=== PATIENT | male | born 1960 | race Caucasian/White ===

== ENCOUNTER 2021-06-25 07:49 | Emergency (ER) | payer MEDICARE ==
--- OUTSIDE RECORDS SUMMARY | 2021-06-25 07:53 | XMS REPORT | Continuity of Care Document ---
:1960 Author Organization [facility] t Address [address] [place] [place] [address] Care Team Providers Name Role Phone Pcp, Patient Does Not Have A Primary Care Physician [id number] Chetan Brandt Attending Clinician Unavailable Doctor Unassigned, Name Attending Clinician Unavailable VIVIANA_Seymour Attending Clinician Unavailable JASMYNE BALTAZAR Attending Clinician Unavailable TRUNG Attending Clinician Unavailable HEIKE Attending Clinician Unavailable HILDA Attending Clinician Unavailable JESSICA GROSS Attending Clinician Unavailable CELIA, - Attending Clinician Unavailable VIVIANA_Seymour Admitting Clinician Unavailable JESSICA GROSS Admitting Clinician Unavailable CELIA, - Admitting Clinician Unavailable Payers Payer Name Policy Type Policy Number Effective Date Expiration Date S lida [facility] [id number] 2020 (MEDICARE 00:00:00 REPLACEMENT HMO) 22 C [id number] 14 B [id number] Problems This patient has no known problems. Allergies, Adverse Reactions, Alerts Allergy Allergy Status Severity Reaction(s) Onset Inactive Treating Comm ents Source Name Type Date Date Clinician No Known NA Active Zoroastrianism All[facility]ie 6-24 [facility] l [facility] ([place]) Social History Social Habit Start Date Stop Date Quantity Comments Source Sex Assigned At [birth year] [facility] 00:00:00 00:00:00 Medical Branch Smoking Status Start Date Stop Date Source Unknown if ever smoked [facility] Medications Ordered Filled Start Stop Current Ordering Indication Dosage Frequency Signature Comments Components Source Medication Medication Date Date Medication? Clinician (SIG) Name Name Sawyer Jacques Yes Tom one [facility] 7[facility]29 [facility] Tradjenta Tradjenta Yes Tom [address] [facility] 6-10 Brandt [facility] MetFORMIN MetFORMIN Yes Tom [address] [facility] HCl ER HCl ER 6-02 Brandt meals [facility] Allopurinol Allopurinol Yes Tom [address] [facility]t [facility] Gabapentin Gabapentin Yes Tom [address] [facility] Acetaminoph Acetaminoph Yes Tom [address] [facility] en-Codeine en-Codeine Brandt as needed [facility] #3 #3 [facility] Ibuprofen Ibuprofen Yes Tom [address] [facility] Brandt with food [facility] - or milk as [facility] needed [facility] Lisinopril Lisinopril Yes Tom [address] [facility] Aspir-Low Aspir-Low Yes Tom [address] [facility] Cyclobenzap Cyclobenzap Yes Tom [address] [facility] rine HCl rine HCl Brandt at bedtime [facility] - as needed [facility] Alprazolam Alprazolam Yes Tom [address] [facility] Rosuvastati Rosuvastati Yes Tom [address] [facility] n Calcium n Calcium Brandt [facility] Metoprolol Metoprolol Yes Tom [address] [facility] Succinate Succinate Brandt [facility] - ER ER [facility]ics glyBURIDE-m glyBURIDE-m Yes Tom [address] [facility] [facility] etFORMIN etFORMIN Brandt with a [facility] - meal [facility] Jardiance Jardiance Yes Tom [address] [facility] Procedures Procedure Date / Time Performed Performing Clinician [facility] REFERRAL- 2020-12-27 05:01:00 Doctor Unassigned, No Victor Manueler [facility] REQUEST/RESPONSE Name Medical Branch Encounters Start End Encounter Admission Attending Care Care Encounter Source Date/Time Date/Time Type Type Clinicians Facility Department ID 2021-05-31 Outpatient Brandt, [facility] 2021-05-31 Outpatient Brandt, [facility] 14:27:08 Tom [id number] [facility] 2021-05-31 Outpatient Brandt, [facility] 14:04:56 Tom [id number] [facility] 2021-05-31 Outpatient Brandt, [facility] 13:57:20 Tom [id number] [facility] 2021-05-31 Outpatient Brandt, [facility] 13:45:34 Tom [id number] [facility] 2021-05-31 Outpatient Brandt, [facility] 13:18:17 Tom [id number] [facility] 2021-05-31 Outpatient Brandt, [facility] 12:40:36 Tom [id number] [facility] 2021-05-31 Outpatient Brandt, [facility] 12:37:42 Tom [id number] [facility] 2021-05-31 Outpatient Brandt, [facility] 12:27:44 Tom [id number] [facility] 2021-05-31 Outpatient Brandt, [facility] 12:21:15 Tom [id number] [facility] 2021-05-31 Outpatient Brandt, [place] [id number] [facility] [address] 12:13:38 Tom [id number] [facility] 2021-05-31 Outpatient Brandt, [place] [id number] [facility] [address] 12:13:19 Tom [id number] [facility] 2021-05-31 Outpatient Brandt, [place] [id number] [facility] [address] 12:12:21 Tom [id number] [facility] 2021-05-31 Outpatient Brandt, [place] [id number] 11:57:35 Tom [id number] [facility] 2021-05-31 Outpatient Brandt, [facility] 11:44:18 Tom [id number] [facility] 2021-05-31 Outpatient Brandt, [place] [id number] [facility] 11:43:46 Tom [id number] [facility] 2021-05-31 Outpatient Brandt, [facility] 11:27:07 Tom [id number] [facility] 2021-05-31 Outpatient Brandt, [facility] 11:24:29 Tom [id number] [facility] 2021-05-31 Outpatient Brandt, [place] [id number] [facility] [address] 11:23:22 Tom [id number] [facility] 2021-06-13 2021-06-13 ambulatory [facility] [id number] [facility] 2021-06-07 2021-06-07 ambulatory [facility] [id number] [facility] 2021-06-06 2021-06-06 ambulatory [facility] [id number] [facility] 2021-06-05 2021-06-05 ambulatory [facility] [id number] [facility] 2021-05-30 2021-05-30 ambulatory [facility] [id number] [facility] 2021-05-29 2021-05-29 ambulatory [facility] [id number] [facility] 2021-05-24 2021-05-24 ambulatory [facility] [id number] [facility] 2021-05-08 2021-05-08 ambulatory [facility] [id number] [facility] 2021-04-24 2021-04-24 ambulatory [facility] [id number] [facility] 2021-04-24 2021-04-24 ambulatory [facility] [id number] [facility] 2021-04-03 2021-04-03 ambulatory [facility] [id number] [facility] 2021-03-28 2021-03-28 ambulatory [facility] [id number] [facility] 2021-03-20 2021-03-20 ambulatory [facility] [id number] [facility] 2021-03-17 2021-03-17 ambulatory [facility] [id number] [facility] 2021-02-28 2021-02-28 Outpatient [facility] [id number] [facility] 2021-02-21 2021-02-21 Outpatient [facility] [id number] [facility] 2021-02-21 2021-02-21 Outpatient [facility] [id number] [facility] 2021-02-15 2021-02-15 Outpatient [facility] [id number] [facility] 2021-02-10 2021-02-10 Outpatient [facility] [id number] [facility] 2021-01-26 2021-01-26 Outpatient [facility] [id number] [facility] 2021-01-26 2021-01-26 Outpatient [facility] [id number] [facility] 2021-01-04 2021-01-04 Outpatient [facility] [id number] [facility] 2020-12-27 2020-12-27 Orders Doctor MARÍA ELENA [id number] [facility] 00:00:00 00:00:00 Only Unassigned, NOEMI [id number] ity of [place] [facility] [id number] Fred as [id number] [place] [id number] Branch 2020-12-22 2020-12-22 Outpatient [facility] [id number] [facility] 2020-11-30 2020-11-30 Outpatient [facility] [id number] [facility] 2020-10-17 2020-10-17 Outpatient [facility] [id number] [facility] 2020-10-17 2020-10-17 Outpatient [facility] [id number] [facility] 2020-09-26 2020-09-26 Outpatient [facility] [id number] [facility] 2020-08-30 2020-08-30 Outpatient OWENS_T DM[facility] [id number] [facility] 05:31:00 05:31:00 0427 [facility] 2020-08-19 2020-08-19 Outpatient [facility] [id number] [facility] 2020-08-02 2020-08-02 Outpatient [facility] [id number] [facility] 2020-07-26 2020-07-26 Outpatient [facility] [id number] [facility] 2020-07-22 2020-07-22 Outpatient [facility] [id number] [facility] 2020-07-19 2020-07-19 Outpatient [facility] [id number] [facility] 2020-07-18 2020-07-18 Outpatient [facility] [id number] [facility] 2020-06-20 2020-06-20 Outpatient [facility] [id number] [facility] 2020-06-20 2020-06-20 Outpatient [facility] [id number] [facility] 2020-06-17 2020-06-17 Outpatient [facility] [id number] [facility] 2020-05-18 2020-05-18 Outpatient [facility] [id number] [facility] 2020-05-13 2020-05-13 Outpatient [facility] [id number] [facility] 2020-05-05 2020-05-05 Outpatient [facility] [id number] [facility] 2020-04-18 2020-04-18 Outpatient [facility] [id number] [facility] 2020-04-15 2020-04-15 Outpatient [facility] [id number] [facility] 2020-03-16 2020-03-16 Outpatient [facility] [id number] [facility] 2020-03-11 2020-03-11 Outpatient [facility] [id number] [facility] 2020-03-07 2020-03-07 Outpatient [facility] [id number] [facility] 2020-03-03 2020-03-03 Outpatient [facility] [id number] [facility] 2020-02-22 2020-02-22 Outpatient [facility] [id number] [facility] 2020-01-20 2020-01-20 [facility] [id number] [facility] 15:33:00 15:33:00 t [facility] 2020-01-20 2020-01-20 [facility] [id number] [facility] 15:26:00 15:26:00 t [facility]pat[facility] ent Clinics 2020-01-12 2020-01-12 [facility] [id number] 08:10:00 08:10:00 t [facility] 2019-12-22 2019-12-22 [facility] [id number] [facility] 10:19:00 10:19:00 t [facility] 2019-12-02 2019-12-02 [facility] [id number] [facility] 11:16:00 11:16:00 t [facility]i [facility] ent Clinics 2019-11-03 2019-11-03 [facility] [id number] 08:15:00 08:15:00 t [facility] 2019-10-26 2019-10-26 [facility] [id number] 11:19:00 11:19:00 t [facility] 2019-10-21 2019-10-21 [facility] [id number] 09:15:00 09:15:00 t [facility] ent Clinics 2019-10-20 2019-10-20 [facility] [id number] 15:30:00 15:30:00 t Bone [facility] 2019-10-14 2019-10-14 [facility] [id number] 08:40:00 08:40:[address] [address] [place] - [facility] l Medicine Outpati ent Clinics 2019-10-09 2019-10-09 [facility] [id number] 10:58:00 10:58:[address] Luke s - Drive [facility] Medicine l Medicine Outpati ent Clinics 2019-10-09 2019-10-09 [facility] [id number] 08:21:00 08:21:00 t [facility] [address] [employer] s - Road [facility] Medicine l Medicine Outpati ent Clinics 2019-10-06 2019-10-06 [facility] [id number] 15:50:00 15:50:00 [place] Funding Luke s - Drive [facility] Medicine l Medicine Outpati ent Clinics 2019-10-06 2019-10-06 [facility] [id number] 09:00:00 09:00:00 [place] Funding [employer] s - Drive [facility] Medicine l Medicine Outpati ent Clinics 2019-10-01 2019-10-01 Outpatient MEDLEY [facility] [id number] [place] 00:00:00 00:00:00 [facility]ANEY [facility]-07-30 2019-07-30 Outpatient MEDLEY [facility] [id number] [place] 00:00:00 00:00:00 DELANEY 267 Met james EBONY 2019-07-17 2019-07-17 Outpatient KUNAPULI, [facility] [id number] [place] 00:00:00 00:00:00 LOULOU [address] 2019-07-17 2019-07-17 Outpatient KUNAPULI, [facility] [id number] [place] 00:00:00 00:00:00 LOULOU [address] 2019-07-09 2019-07-09 Outpatient [facility] [id number] [place] 00:00:00 00:00:[address] 2019-07-08 2019-07-08 Outpatient MAJMUDAR, [facility] [id number] [place] 00:00:00 00:00:00 SHIRINE [address] 2019-07-02 2019-07-02 Outpatient TRUNG [facility] [id number] [place] 00:00:00 00:00:00 LOULOU [address] 2019-07-02 2019-07-02 Outpatient TRUNG [facility] [id number] [place] 00:00:00 00:00:00 LOULOU [address] 2019-05-13 2019-05-13 Outpatient SUSANA STEVENS [facility] [id number] [place] 00:00:00 00:00:[address] 2019-03-13 2019-03-13 Outpatient [facility] [id number] [place] 00:00:00 00:00:00 [facility] 2019-03-04 2019-03-04 Outpatient [facility] [id number] [place] 00:00:00 00:00:00 [facility] 2019-01-19 2019-01-19 Outpatient [facility] [id number] [place] 00:00:00 00:00:00 [facility] 2018-12-15 2018-12-15 Outpatient [facility] [id number] [place] 10:58:41 10:58:41 Health 2018-12-15 2018-12-15 Outpatient [facility] [id number] [place] 10:06:51 10:06:51 Health 2018-12-15 2018-12-15 Outpatient [facility] [id number] [place] 08:50:09 08:50:09 Health 2018-12-15 2018-12-15 Outpatient [facility] [id number] [place] 00:00:00 00:00:00 [facility] 2018-11-26 2018-11-26 Outpatient [facility] [id number] [place] 08:13:34 08:13:34 Health 2018-11-26 2018-11-26 Outpatient [facility] [id number] [place] 00:00:00 00:00:00 [facility] 2018-11-17 2018-11-17 Outpatient [facility] [id number] [place] 00:00:00 00:00:00 Health 2018-10-06 2018-10-06 Outpatient [facility] [id number] [place] 00:00:00 00:00:00 [facility] 2018-09-26 2018-09-26 Outpatient [facility] [id number] [place] 10:06:34 10:06:34 Health 2018-09-26 2018-09-26 Outpatient [facility] [id number] [place] 08:40:35 08:40:35 [facility] 2018-09-26 2018-09-26 Outpatient [facility] [id number] [place] 08:24:50 08:24:50 [facility] 2018-08-25 2018-08-25 Outpatient [facility] [id number] [place] 13:38:58 13:38:58 [facility] 2018-08-04 2018-08-04 Outpatient [facility] [id number] [place] 00:00:00 00:00:00 [facility] 2018-07-30 2018-07-30 Outpatient [facility] [id number] [place] 00:00:00 00:00:00 [facility] 2018-07-22 2018-07-22 Outpatient [facility] [id number] [place] 00:00:00 00:00:00 [facility] 2018-07-10 2018-07-10 Outpatient [facility] [id number] [place] 00:00:00 00:00:00 [facility] 2018-07-09 2018-07-09 Outpatient [facility] [id number] [place] 00:00:00 00:00:00 [facility] 2018-07-03 2018-07-03 Outpatient [facility] [id number] [place] 00:00:00 00:00:00 [facility] 2018-06-26 2018-06-26 Outpatient [facility] [id number] [place] 12:26:00 12:26:00 [facility] 2018-06-18 2018-06-18 Outpatient [facility] [id number] [place] 16:41:14 16:41:14 [facility] 2018-06-12 2018-06-12 Outpatient [facility] [id number] [place] 18:03:36 18:03:36 [facility] 2018-06-12 2018-06-12 Outpatient [facility] [id number] [place] 17:07:35 17:07:35 [facility] 2018-06-12 2018-06-12 Outpatient [facility] [id number] [place] 00:00:00 00:00:00 [facility] 2018-06-12 2018-06-12 Outpatient [facility] [id number] [place] 00:00:00 00:00:00 [facility] 2018-06-11 2018-06-11 Emergency [facility] [id number] [place] 11:44:23 11:44:23 Health 2018-06-11 2018-06-[address] [facility] [id number] [place] 10:15:12 10:15:12 [facility] 2018-05-15 2018-05-15 Outpatient [facility] [id number] [place] 00:00:00 00:00:00 [facility] 2018-04-22 2018-04-22 Outpatient [facility] [id number] [place] 09:19:06 09:19:06 [facility] 2018-04-04 2018-04-04 Outpatient [facility] [id number] [place] 09:02:57 09:02:57 [facility] 2018-04-03 2018-04-03 Outpatient [facility] [id number] [place] 00:00:00 00:00:00 [facility] 2018-03-25 2018-03-25 Outpatient [facility] [id number] [place] 00:00:00 00:00:00 [facility] 2018-03-25 2018-03-25 Outpatient [facility] [id number] [place] 00:00:00 00:00:00 [facility] 2018-03-24 2018-03-24 Outpatient [facility] [id number] [place] 13:56:57 13:56:57 [facility] 2018-03-21 2018-03-21 Outpatient [facility] [id number] [place] 00:00:00 00:00:00 [facility] 2018-03-21 2018-03-21 Outpatient [facility] [id number] [place] 00:00:00 00:00:00 [facility] 2018-03-21 2018-03-21 Outpatient [facility] [id number] [place] 00:00:00 00:00:00 [facility] 2018-03-04 2018-03-04 Outpatient [facility] [id number] [place] 00:00:00 00:00:00 [facility] 2018-02-27 2018-02-27 Outpatient [facility] [id number] [place] 00:00:00 00:00:00 [facility] 2018-02-25 2018-02-25 Outpatient [facility] [id number] [place] 12:53:40 12:53:40 [facility] 2018-02-25 2018-02-25 Outpatient [facility] [id number] [place] 11:03:51 11:03:51 [facility] 2018-02-25 2018-02-25 Outpatient [facility] [id number] [place] 00:00:00 00:00:00 [facility] 2018-02-21 2018-02-21 Outpatient [facility] [id number] [place] 15:02:30 15:02:30 [facility] 2018-02-11 2018-02-11 Outpatient [facility] [id number] [place] 00:00:00 00:00:00 [facility] 2018-02-10 2018-02-10 Outpatient [facility] [id number] [place] 00:00:00 00:00:00 [facility] 2018-02-10 2018-02-10 Outpatient [facility] [id number] [place] 00:00:00 00:00:00 [facility] 2018-02-07 2018-02-07 Outpatient [facility] [id number] [place] 00:00:00 00:00:00 [facility] 2018-02-05 2018-02-05 Outpatient [facility] [id number] [place] 00:00:00 00:00:00 [facility] 2018-01-29 2018-01-29 Outpatient [facility] [id number] [place] 00:00:00 00:00:00 [facility] 2018-01-27 2018-01-27 Outpatient [facility] [id number] [place] 00:00:00 00:00:00 [facility] 2018-01-17 2018-01-17 Emergency [facility] [id number] [place] 10:08:32 10:08:32 [facility] 2018-01-17 2018-01-17 Emergency [facility] [id number] [place] 08:24:15 08:24:15 [facility] 2018-01-17 2018-01-17 Outpatient [facility] [id number] [place] 07:31:43 07:31:43 [facility] 2018-01-15 2018-01-15 Outpatient [facility] [id number] [place] 09:38:41 09:38:41 [facility] 2018-01-09 2018-01-09 Outpatient [facility] [id number] [place] 00:00:00 00:00:00 [facility] 2017-12-31 2017-12-31 Outpatient [facility] [id number] [place] 12:47:00 12:47:00 [facility] 2017-12-31 2017-12-31 Outpatient [facility] [id number] [place] 12:06:00 12:06:00 [facility] 2017-12-27 2017-12-27 Outpatient [facility] [id number] [place] 00:00:00 00:00:00 [facility] 2017 2017 Outpatient [facility] [id number] [place] 10:16:43 10:16:43 [facility] 2017-12-24 2017-12-24 Outpatient [facility] [id number] [place] 10:34:00 10:34:00 [facility] 2017-12-24 2017-12-24 Outpatient [facility] [id number] [place] 09:05:34 09:05:34 [facility] 2017-12-24 2017-12-24 Outpatient [facility] [id number] [place] 00:00:00 00:00:00 [facility] 2017-12-19 2017-12-19 Outpatient [facility] [id number] [place] 00:00:00 00:00:00 [facility] 2017-12-12 2017-12-12 Outpatient [facility] [id number] [place] 07:54:00 07:54:00 [facility] 2017-11-27 2017-11-27 Outpatient [facility] [id number] [place] 11:36:11 11:36:11 [facility] 2017-11-19 2017-11-19 Outpatient [facility] [id number] [place] 13:39:43 13:39:43 [facility] 2017-11-18 2017-11-18 Outpatient [facility] [id number] [place] 14:25:53 14:25:53 [facility] 2017-11-12 2017-11-12 Outpatient [facility] [id number] [place] 10:49:20 10:49:20 [facility] 2017-11-12 2017-11-12 Outpatient [facility] [id number] [place] 00:00:00 00:00:00 [facility] 2017-11-12 2017-11-12 Outpatient [facility] [id number] [place] 00:00:00 00:00:00 [facility] 2017-11-05 2017-11-05 Outpatient [facility] [id number] [place] 10:16:07 10:16:07 [facility] 2017-11-05 2017-11-05 Outpatient [facility] [id number] [place] 09:00:21 09:00:21 [facility] 2017-10-29 2017-10-29 Outpatient [facility] [id number] [place] 13:45:43 13:45:43 [facility] 2017-10-18 2017-10-18 Outpatient [facility] [id number] [place] 00:00:00 00:00:00 [facility] 2017-10-14 2017-10-14 Outpatient [facility] [id number] [place] 00:00:00 00:00:00 [facility] 2017-10-07 2017-10-07 Outpatient [facility] [id number] [place] 00:00:00 00:00:00 [facility] 2017-10-03 2017-10-03 Outpatient [facility] [id number] [place] 10:04:26 10:04:26 [facility] 2017-10-03 2017-10-03 Outpatient [facility] [id number] [place] 09:28:32 09:28:32 [facility] 2017-10-01 2017-10-01 Outpatient [facility] [id number] [place] 11:05:29 11:05:29 [facility] 2017-10-01 2017-10-01 Outpatient [facility] [id number] [place] 10:18:38 10:18:38 [facility] 2017-09-24 2017-09-24 Outpatient [facility] [id number] [place] 00:00:00 00:00:00 [facility] 2017-09-23 2017-09-23 Outpatient [facility] [id number] [place] 10:21:51 10:21:51 [facility] 2017-09-23 2017-09-23 Outpatient [facility] [id number] [place] 08:59:09 08:59:09 [facility] 2017-09-17 2017-09-17 Outpatient [facility] [id number] [place] 13:57:42 13:57:42 [facility] 2017-09-09 2017-09-09 Outpatient [facility] [id number] [place] 08:37:34 08:37:34 [facility] 2017-09-02 2017-09-02 Outpatient [facility] [id number] [place] 09:36:38 09:36:38 [facility] 2017-08-28 2017-08-28 Outpatient [facility] [id number] [place] 13:30:26 13:30:26 [facility] 2017-08-08 2017-08-08 Emergency [facility] [id number] [place] 22:23:03 22:23:03 [facility] 2017-08-08 2017-08-08 Outpatient [facility] [id number] [place] 00:00:00 00:00:00 [facility] 2017-08-08 2017-08-08 Outpatient [facility] [id number] [place] 00:00:00 00:00:00 [facility] 2017-08-06 2017-08-06 Outpatient [facility] [id number] [place] 00:00:00 00:00:00 [facility] 2017-08-05 2017-08-05 Outpatient [facility] [id number] [place] 13:08:03 13:08:03 [facility] 2017-08-05 2017-08-05 Outpatient [facility] [id number] [place] 11:01:45 11:01:45 [facility] 2017-08-05 2017-08-05 Outpatient [facility] [id number] [place] 08:41:42 08:41:42 [facility] 2017-08-05 2017-08-05 Outpatient [facility] [id number] [place] 00:00:00 00:00:00 [facility] 2017-08-05 2017-08-05 Outpatient [facility] [id number] [place] 00:00:00 00:00:00 [facility] 2017-08-01 2017-08-01 Outpatient [facility] [id number] [place] 08:44:07 08:44:07 [facility] 2017-08-01 2017-08-01 Outpatient [facility] [id number] [place] 00:00:00 00:00:00 [facility] 2017-08-01 2017-08-01 Outpatient [facility] [id number] [place] 00:00:00 00:00:00 [facility] 2017-07-23 2017-07-23 Outpatient [facility] [id number] [place] 16:18:24 16:18:24 [facility] 2017-07-16 2017-07-16 Outpatient [facility] [id number] [place] 00:00:00 00:00:00 [facility] 2017-07-11 2017-07-11 Outpatient [facility] [id number] [place] 11:38:48 11:38:48 [facility] 2017-07-10 2017-07-10 Outpatient [facility] [id number] [place] 10:18:32 10:18:32 [facility] 2017-07-10 2017-07-10 Outpatient [facility] [id number] [place] 08:18:20 08:18:20 [facility] 2017-07-09 2017-07-09 Outpatient [facility] [id number] [place] 00:00:00 00:00:00 [facility] 2017-06-24 2017-06-24 Outpatient [facility] [id number] [place] 00:00:00 00:00:00 [facility] 2017-06-14 2017-06-14 Outpatient [facility] [id number] [place] 08:03:34 08:03:34 [facility] 2017-06-12 2017-06-12 Outpatient [facility] [id number] [place] 20:12:14 20:12:14 [facility] 2017-06-10 2017-06-10 Outpatient [facility] [id number] [place] 09:37:52 09:37:52 [facility] 2017-06-10 2017-06-10 Outpatient [facility] [id number] [place] 08:42:02 08:42:02 [facility] 2017-06-05 2017-06-05 Outpatient [facility] [id number] [place] 10:46:32 10:46:32 [facility] 2017-05-31 2017-05-31 Outpatient [facility] [id number] [place] 14:46:12 14:46:12 [facility] 2017-05-27 2017-05-27 Outpatient [facility] [id number] [place] 00:00:00 00:00:00 [facility] 2017-05-23 2017-05-23 Outpatient [facility] [id number] [place] 11:59:38 11:59:38 [facility] 2017-05-23 2017-05-23 Outpatient [facility] [id number] [place] 00:00:00 00:00:00 [facility] 2017-05-16 2017-05-16 Outpatient [facility] [id number] [place] 16:21:53 16:21:53 [facility] 2017-05-16 2017-05-16 Outpatient [facility] [id number] [place] 00:00:00 00:00:00 [facility] 2017-05-14 2017-05-14 Outpatient [facility] [id number] [place] 00:00:00 00:00:00 [facility] 2017-05-13 2017-05-13 Outpatient [facility] [id number] [place] 12:20:11 12:20:11 [facility] 2017-05-13 2017-05-13 Outpatient [facility] [id number] [place] 00:00:00 00:00:00 [facility] 2017-05-08 2017-05-08 Outpatient [facility] [id number] [place] 00:00:00 00:00:00 [facility] 2017-04-30 2017-04-30 Outpatient [facility] [id number] [place] 07:15:53 07:15:53 [facility] 2017-04-30 2017-04-30 Outpatient [facility] [id number] [place] 06:54:15 06:54:15 [facility] 2017-04-22 2017-04-22 Outpatient [facility] [id number] [place] 08:27:43 08:27:43 [facility] 2017-04-15 2017-04-15 Outpatient [facility] [id number] [place] 11:04:39 11:04:39 [facility] 2017-04-03 2017-04-03 Outpatient [facility] [id number] [place] 08:24:48 08:24:48 [facility] 2017-04-02 2017-04-02 Outpatient [facility] [id number] [place] 16:13:48 16:13:48 [facility] 2017-04-02 2017-04-02 Outpatient [facility] [id number] [place] 10:12:00 10:12:00 [facility] 2017-03-27 2017-03-27 Outpatient [facility] [id number] [place] 08:53:50 08:53:50 [facility] 2017-03-27 2017-03-27 Outpatient [facility] [id number] [place] 00:00:00 00:00:00 [facility] 2017-03-25 2017-03-25 Outpatient [facility] [id number] [place] 13:51:49 13:51:49 [facility] 2017-03-15 2017-03-15 Outpatient [facility] [id number] [place] 14:16:41 14:16:41 Health 2017-03-13 2017-03-13 Outpatient [facility] [id number] [place] 13:15:34 13:15:34 Health 2017-03-13 2017-03-13 Outpatient [facility] [id number] [place] 12:54:27 12:54:27 Health 2017-03-13 2017-03-13 Outpatient [facility] [id number] [place] 10:32:53 10:32:53 Health 2017-03-07 2017-03-07 Outpatient [facility] [id number] [place] 11:53:25 11:53:25 [facility] 2016-11-05 2016-11-06 Emergency 1 GROSS, LOC SSET ERS [id number] [facility] 20:54:00 01:23:00 [id number] [facility] 2012-10-27 2012-10-29 Outpatient 1 KIMANI BRANDT O[facility] [id number]- [facility] 18:07:00 13:18:00 [facility] [id number] Hospi ta l ([place]) Results Test Description Test Time Test Comments Results Result [facility] e Comments CT Abdomen and Patient: PAULSON, Pelvis w/o 5 [place] Contrast 19:37:37 Date/Time06/10/2018 18:00 CSTReason for ExamFlank painAddendumADDENDUM:TECHN IQUE: Multiple axial images were obtained through the abdomen and pelvis. No oral nor IV contrast material was administered. The images were reformatted in the coronal and sagittal planes. Radiation dose lowering techniques were used with automated exposure control, adjusting the mA according to patient's size. Final Dictated by: MD Munir, SamerDictated DT/TM: 06/10/2018 7:37 pmSigned by: MD Munir, SamerSigned (Electronic Signature): 06/10/2018 7:37 pmReportEXAMINATION: CT ABDOMEN AND PELVIS WITHOUT CONTRASTCOMPARISON: NoneCLINICAL INFORMATION: Right flank painTECHNIQUE: After oral contrast administration, multiple axial images were obtained through the abdomen and pelvis. IV contrast material was not administered. The images were reformatted in the coronal and sagittal planes. Radiation dose lowering techniques were used with automated exposure control, adjusting the mA according to patient's size.FINDINGS:Exam sensitivity is limited due to lack of IV and oral contrast.Mild bibasilar linear atelectasis versus scarring. Visualized lung bases are otherwise unremarkable.Liver is normal size and contour. Diffuse hypoattenuation of the hepatic parenchyma. No focal hepatic lesions. No intra or extra hepatic biliary ductal dilatation.Gallbladder is grossly unremarkable, without radiodense calculi.Spleen is grossly normal.A 1 cm well-circumscribed hypodensity within the pancreatic head/neck (axial image 63, series 201), with internal density measuring up to 3 Hounsfield units, most compatible with simple pancreatic cyst. No ductal dilatation.A benign 1.4 cm left adrenal myelolipoma. Adrenal glands are otherwise unremarkable.Moderate right hydroureteronephrosis with likely obstructive 0.8 cm distal right ureteral calculus (axial image 135, series 201; coronal image 81, series 202). With mild perinephric fat stranding and moderate periureteral fat stranding/inflammatory changes. Left parapelvic cysts. Nonobstructive subcentimeter left renal calculi. No left ureteral calculi. A 1.7 cm well-circumscribed calcified exophytic right renal lesion (axial image 96, series 201).Urinary bladder is partially decompressed, but otherwise unremarkable. Central calcifications of the prostate.Exam Date/Time06/10/2018 18:00 CSTReportNo bowel wall thickening, distention, nor evidence of obstruction. Appendix is not visualized, however, no inflammatory changes within the right lower quadrant.No intraperineal free air and/or free fluid.No lymphadenopathy.Mild calcific atherosclerosis of the aortoiliac vasculature. Otherwise remainder of the aorta, IVC, and main portal vein are grossly normal, however, complete evaluation of the intraluminal vascular contents cannot be performed on this noncontrast examination.No lytic or blastic osseous lesions. Moderate multilevel degenerative disc disease of the lumbar spine, with prominent posterior disc osteophyte complex at L3-L4, which results in moderate/severe spinal canal stenosis at this level. 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 Tiny right fat-containing inguinal hernia, without associated inflammatory changes. Soft tissues are otherwise grossly unremarkable.IMPRESSION:1. Moderate right hydroureteronephrosis with likely obstructive 0.8 cm distal right ureteral calculus.2. Subcentimeter nonobstructive left nephrolithiasis.3. Hepatic steatosis.4. Moderate multilevel degenerative disc disease of the lumbar spine, with large posterior disc osteophyte complex at L3-L4, which results in moderate/severe spinal canal stenosis at this level.5. A 1.7 cm calcified exophytic right renal lesion, indeterminate. Recommend MRI abdomen with and without contrast-renal protocol for further evaluation, on a nonemergent basis.6. A 1 cm likely simple pancreatic cyst. Recommend follow-up CT versus MRI abdomen in one year to document stability. Final Dictated by: MD Munir, SamerDictated DT/TM: 06/10/2018 6:32 pmSigned by: MD Munir, SamerSigned (Electronic Signature): 06/10/2018 6:48 pmReport last revised on 06/10/2018 19:37 HELMET BINDER by MD Munir, Samer CT Abdomen and Patient: PAULSON, Pelvis w/o 5 GEORGES Contrast 18:48:17 Date/Time06/10/2018 18:00 CSTReason for ExamFlank painReportEXAMINATION: CT ABDOMEN AND PELVIS WITHOUT CONTRASTCOMPARISON: NoneCLINICAL INFORMATION: Right flank painTECHNIQUE: After oral contrast administration, multiple axial images were obtained through the abdomen and pelvis. IV contrast material was not administered. The images were reformatted in the coronal and sagittal planes. Radiation dose lowering techniques were used with automated exposure control, adjusting the mA according to patient's size.FINDINGS:Exam sensitivity is limited due to lack of IV and oral contrast.Mild bibasilar linear atelectasis versus scarring. Visualized lung bases are otherwise unremarkable.Liver is normal size and contour. Diffuse hypoattenuation of the hepatic parenchyma. No focal hepatic lesions. No intra or extra hepatic biliary ductal dilatation.Gallbladder is grossly unremarkable, without radiodense calculi.Spleen is grossly normal.A 1 cm well-circumscribed hypodensity within the pancreatic head/neck (axial image 63, series 201), with internal density measuring up to 3 Hounsfield units, most compatible with simple pancreatic cyst. No ductal dilatation.A benign 1.4 cm left adrenal myelolipoma. Adrenal glands are otherwise unremarkable.Moderate right hydroureteronephrosis with likely obstructive 0.8 cm distal right ureteral calculus (axial image 135, series 201; coronal image 81, series 202). With mild perinephric fat stranding and moderate periureteral fat stranding/inflammatory changes. Left parapelvic cysts. Nonobstructive subcentimeter left renal calculi. No left ureteral calculi. A 1.7 cm well-circumscribed calcified exophytic right renal lesion (axial image 96, series 201).Urinary bladder is partially decompressed, but otherwise unremarkable. Central calcifications of the prostate.No bowel wall thickening, distention, nor evidence of obstruction. Appendix is not visualized, however, no inflammatory changes within the right lower quadrant.No intraperineal free air and/or free fluid.No lymphadenopathy.Mild calcific atherosclerosis of the aortoiliac vasculature. Otherwise remainder of the aorta, IVC, and main portal vein are grossly normal, however, complete evaluation of the intraluminal vascular contents cannot be performed on this noncontrast examination.No lytic or blastic osseous lesions. Moderate multilevel degenerative disc disease of the lumbar spine, with prominent posterior disc osteophyte complex at L3-L4, which results in moderate/severe spinal canal stenosis at this level. 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 Tiny right fat-containing inguinal hernia, without associated inflammatory changes. Soft tissues are otherwise grossly unremarkable.IMPRESSION:1. Moderate right hydroureteronephrosis with likely obstructive 0.8 cm distal right ureteral calculus.2. Subcentimeter nonobstructive left nephrolithiasis.3. Hepatic steatosis.4. Moderate multilevel degenerative disc disease of the lumbar spine, with large posterior disc osteophyte complex at L3-L4, which results in moderate/severe spinal canal stenosis at this level.5. A 1.7 cm calcified exophytic right renal lesion, indeterminate. Recommend MRI abdomen with and without contrast-renal protocol for further evaluation, on a nonemergent basis.6. A 1 cm likely simple pancreatic cyst. Recommend follow-up CT versus MRI abdomen in one year to document stability. Final Dictated by: MD Munir, SamerDictated DT/TM: 06/10/2018 6:32 pmSigned by: MD Munir, SamerSigned (Electronic Signature): 06/10/2018 6:48 pm US LIMITED ABD [place] [id number] 21:52:00 [place], [place] [id number] IMAGING REPORTPatient Name: GEORGES PAULSON LDate of Service: [id number]: 55 Sex: M Order #: [id number] Room: [facility]: 1960 X-Ray Number: [id number] Record Number: [id number] Hospital Number: [id number] Physician: TEJA GROSS TANOrdering Physician: Adrianne CEDILLO right upper quadrant abdominal ultrasound 11/05/2016 at 2151 hoursHistory: Right upper quadrant abdominal pain, reported biopsy-proven benignright renal massComparison: X-rays of 01/19/2015The liver shows increased echotexture consistent with fatty infiltration.The right hepatic lobe appears to measure at least 18 cm in length. Nofocal hepatic mass or biliary dilatation is identified.Common bile duct measures 5 mm in diameter. Duplex imaging of main portalvein flow is within normal limits.The gallbladder is within normal limits. Visualized portions of the IVC areunremarkable. The aorta and pancreas are obscured by bowel gas.The right kidney measures 14 cm in length and contains an hyperechoiclesion inferiorly measuring 2.7 x 1.6 x 1.8 cm. This may be due to a benignangiomyolipoma given the patient's history of reported benign renal lesion.IMPRESSION:No definite acute process.Possible mild hepatomegaly and fatty liver.Electronically Signed By: Teo Pruitt M.D., 11/05/2016 9:50 PMLegally authenticated by DEB THOMPSON 2016-11-05 21:50:03 [facility] [place] [address] 21:49:00 [place], [place] [id number] IMAGING REPORTPatient Name: GEORGES PAULSON LDate of Service: [id number]: 56 Sex: M Order #: [id number] Room: QERDOB: 1960 X-Ray Number: [id number] Record Number: [id number] Hospital Number: [id number] Physician: TEJA GROSS TANOrdering Physician: Jose CEDILLO shoulder 3 views 11/05/2016 at 2138 hoursHISTORY: Right shoulder pain x6 monthsCOMPARISON: NoneNo fracture, dislocation, or AC joint separation is identified. There aremild degenerative changes of the AC joint. The soft tissues areunremarkable.Impression :No acute process. AC joint degenerative changes.Electronically Signed By: Teo Pruitt M.D., 11/05/2016 9:46 PMLegally authenticated by DEB THOMPSON 2016-11-05 21:46:54
[2021-06-25] MEDS ORDERED: FENTANYL CITR 100 MCG/2 ML ONE ×2 (07:57→08:21)
[2021-06-25] MEDS ORDERED: ONDANSETRON 4 MG/2 ML VIAL ONE ×2 (07:57→09:05)
[2021-06-25] MEDS ORDERED: NA CHLORIDE 0.9% 1,000 ML ONE (07:58)
[2021-06-25 08:05] LABS: Absolute Lymphocytes (CBC) 1.6 K/uL (0.7-4.9); Hematocrit 46.8 % (39.6-49.0); MPV 8.8 fL (7.6-11.3); RBC Red Blood Cell Count 4.96 M/uL (4.33-5.43)
[2021-06-25 08:22] LABS: ALT/SGPT 34 U/L (12-78); Albumin 3.6 g/dL (3.4-5.0); Alkaline Phosphatase 100 U/L (45-117); BUN Blood Urea Nitrogen 22 mg/dL (7-18); Bicarbonate 23 mmol/L (21-32); Bilirubin Direct < 0.1 mg/dL (0-0.2); Bilirubin Total 0.3 mg/dL (0.2-1.0); Glucose Level 220 mg/dL (74-106); Lipase 70 U/L (73-393); Protein, Total 7.6 g/dL (6.4-8.2); Sodium Level 140 mmol/L (136-145)
[2021-06-25 08:23] LABS: AST/SGOT 20 U/L (15-37); Potassium 4.4 mmol/L (3.5-5.1)
[2021-06-25 08:32] LABS: Urine Blood 3+ (Negative); Urine Glucose 2+ (Negative); Urine Protein Negative (Negative)
[2021-06-25] MEDS ORDERED: HYDROMORPHONE HCL 1 MG/ML INJ ONE ×2 (09:05→10:42)
[2021-06-25 09:22] LABS: Urine Bacteria <20 /HPF (NONE SEEN); Urine RBC 20-50 /HPF (NONE SEEN)
--- NOTE | 2021-06-25 09:27 | RAD REPORT ---
EXAM DESCRIPTION: CT - Stone Protocol - 06/25/2021 8:31 am CLINICAL HISTORY: Abdominal pain. Right flank pain COMPARISON: None. TECHNIQUE: Computed axial tomography of the abdomen pelvis was obtained without oral or IV contrast. Lack of IV and oral contrast limits evaluation of solid organs, bowel, and vessels. Coronal reformat martell images were obtained and reviewed. All CT scans are performed using dose optimization technique as appropriate and may include automated exposure control or mA/KV adjustment according to patient size. FINDINGS: Bilateral renal calculi. Moderate right hydronephrosis. 1.3 centimeter calcified right faith al mass. This is contained within a 4.3 centimeter fatty structure. . 4 millimeter calculus distal ri ght ureter. 5.7 centimeter cystic mass left kidney The liver, spleen, pancreas appear grossly normal Benign calcifications within the adrenal glands. 13 millimeter left adrenal myelolipoma. There is no evidence of diverticulitis. A moderate bilateral inguinal hernias contain fat. Mild stran ding within the mesentery Moderate calcified disc herniation L3-4 results in marked compression of spinal canal IMPRESSION: 4 millimeter calculus distal right ureter resulting in moderate right hydronephrosis 1.3 centimeter calcified mass within a 4.3 centimeter fatty structure. The history states renal ablat ion. Presumably this is the sequela of a treated mass and should be correlated clinically. 5.7 centimeter cystic mass left kidney probably a cyst. Followup ultrasound in 3 months recommended Moderate calcified disc herniation L3-4
[2021-06-25] MEDS ORDERED: TAMSULOSIN 0.4 MG SR CAP ONE (10:04)
[2021-06-25] MEDS ORDERED: MAGNESIUM SULFATE 1 gm IVPB 1 GM/100 ML BAG IV ONE (10:05)
[2021-06-25] MEDS ORDERED: PROMETHAZINE INJ 25 MG/ML AMP ONE (10:41)
--- NOTE | 2021-06-25 11:50 | EDPHYS ---
Physician Documentation [facility] Name: Georges Mendoza Age: 60 yrs Sex: Male : 1960 Arrival Date: 06/25/2021 Time: 07:28 Bed 20 Private MD: Mattie Brandth ED Physician Hal Nails HPI: 06/25 07:35 This 60 yrs old Male presents to ER via Ambulatory with complaints of pm1 Abdominal Pain, Vomiting. 07:35 The patient complains of pain in the right low back. The pain does not radiate. Onset: pm1 The symptoms/episode began/occurred today, at 03:00. Modifying factors: The symptoms are alleviated by nothing. the symptoms are aggravated by nothing. Associated signs and symptoms: Pertinent positives: nausea, vomiting, Pertinent negatives: dysuria, fever. Severity of pain: in the emergency department the pain is actually worse. The patient has experienced similar episodes in the past, a few times, today's symptoms are similar, to previous kidney stones. The patient has not recently seen a physician. Historical: - Allergies: 07:44 No Known Allergies; ke1 - PMHx: 07:44 Kidney stone; Hypertensive disorder; Diabetes mellitus; ke1 - PSHx: 07:44 kidney ablation; back surgery; Appendectomy; ke1 - Immunization history:: Adult Immunizations . - Social history:: Smoking status: Patient denies any tobacco usage or history of. ROS: 07:35 Constitutional: Negative for fever, chills, and weight loss, Cardiovascular: Negative pm1 for chest pain, palpitations, and edema, Respiratory: Negative for shortness of breath, cough, wheezing, and pleuritic chest pain. 07:35 : Negative for injury, bleeding, discharge, and swelling, MS/Extremity: Negative for injury and deformity, Skin: Negative for injury, rash, and discoloration, Neuro: Negative for headache, weakness, numbness, tingling, and seizure. 07:35 Abdomen/GI: Positive for nausea and vomiting, Negative for abdominal pain, diarrhea, constipation. 07:35 Back: Positive for flank pain, on the right. 07:35 All other systems are negative. Exam: 07:35 Constitutional: This is a well developed, well nourished patient who is awake, alert, pm1 and in no acute distress. Head/Face: Normocephalic, atraumatic. 07:35 Skin: Warm, dry with normal turgor. Normal color with no rashes, no lesions, and no evidence of cellulitis. MS/ Extremity: Pulses equal, no cyanosis. Neurovascular intact. Full, normal range of motion. 07:35 Cardiovascular: Exam negative for acute changes, Rate: normal, Rhythm: regular, Pulses: no pulse deficits are appreciated. 07:35 Respiratory: Exam negative for acute changes, respiratory distress, shortness of breath, Breath sounds: are clear throughout. 07:35 Abdomen/GI: Inspection: obese Palpation: abdomen is soft and non-tender, in all quadrants. 07:35 Back: CVA tenderness, that is moderate, is noted on the right. 07:35 Neuro: Exam negative for acute changes, Orientation: is normal, Mentation: is normal, Motor: is normal, moves all fours. Vital Signs: 07:39 BP 155 / 106; Pulse 112; Resp 19; Temp 97.6; Pulse Ox 99% ; ke1 08:00 BP 176 / 106; Pulse 72; Resp 19; Pulse Ox 95% ; ke1 09:00 BP 174 / 97; Pulse 82; Resp 18; Pulse Ox 94% on R/A; ke1 10:00 BP 150 / 70; Pulse 80; Resp 17; Pulse Ox 95% on R/A; ke1 11:00 BP 162 / 110; Pulse 82; Resp 18; Pulse Ox 92% on R/A; ke1 11:47 BP 149 / 79; Pulse 80; Resp 18; Pulse Ox 95% on R/A; ke1 MDM: 07:37 Patient medically screened. pm1 09:30 Data reviewed: vital signs. Data interpreted: Pulse oximetry: on room air is 99 %. pm1 Interpretation: normal. 11:47 Counseling: I had a detailed discussion with the patient and/or guardian regarding: the pm1 historical points, exam findings, and any diagnostic results supporting the discharge/admit diagnosis, lab results, radiology results, the need for outpatient follow up, to return to the emergency department if symptoms worsen or persist or if there are any questions or concerns that arise at home. 06/25 07:35 Order name: Basic Metabolic Panel pm1 06/25 07:35 Order name: CBC with Diff pm1 06/25 07:35 Order name: Hepatic Function pm1 02/20 07:35 Order name: Lipase pm06/25 08:07 Order name: CBC with Automated Diff; Complete Time: 08:10 EDMS 06/25 08:23 Order name: Basic Metabolic Panel; Complete Time: 08:33 EDMS 06/25 07:36 Order name: CT Abd/Pelvis - IV Contrast Only pm06/25 07:39 Order name: CT Stone Protocol pm06/25 08:23 Order name: Liver (Hepatic) Function; Complete Time: 08:33 EDMS 06/25 08:23 Order name: Lipase; Complete Time: 08:33 EDMS 06/25 08:32 Order name: Urine Dipstick-Ancillary; Complete Time: 08:33 EDMS 06/25 08:59 Order name: Urine Microscopic Only pm06/25 09:22 Order name: Urine Microscopic Only; Complete Time: 09:23 EDMS 06/25 09:28 Order name: CT; Complete Time: 09:29 EDMS 06/25 07:35 Order name: IV Saline Lock; Complete Time: 07:56 pm06/25 07:35 Order name: Labs collected and sent; Complete Time: 07:56 pm06/25 07:35 Order name: Urine Dipstick-Ancillary (obtain specimen); Complete Time: 08:33 pm1 Administered Medications: 08:00 Drug: fentaNYL (PF) 50 mcg Route: IVP; Site: left forearm; ke1 08:15 Follow up: Response: Pain is unchanged, physician notified ke1 08:00 Drug: Zofran (Ondansetron) 4 mg Route: IVP; Site: left forearm; ke1 08:25 Follow up: Response: Nausea is decreased ke1 08:30 Follow up: Response: Nausea is decreased ke1 08:00 Drug: NS 0.9% 1000 ml Route: IV; Rate: 1000 ml; Site: left forearm; ke1 09:30 Follow up: IV Status: Completed infusion ke1 08:25 Drug: fentaNYL (PF) 50 mcg Route: IVP; Site: left forearm; ke1 09:00 Follow up: Response: Pain is unchanged, physician notified ke1 09:09 Drug: Dilaudid (HYDROmorphone) 1 mg Route: IVP; Site: left forearm; ke1 09:25 Follow up: Response: Pain is decreased ke1 09:09 Drug: Zofran (Ondansetron) 4 mg Route: IVP; Site: left forearm; ke1 09:30 Follow up: Response: Nausea is decreased ke1 10:13 Drug: Magnesium Sulfate 1 grams Route: IVPB; Infused Over: 1 hrs; Site: left forearm; ke1 11:13 Follow up: IV Status: Completed infusion ke1 10:13 Drug: Flomax (tamsulosin) 0.4 mg Route: PO; ke1 11:00 Follow up: Response: No adverse reaction ke1 10:46 Drug: Dilaudid (HYDROmorphone) 1 mg Route: IVP; Site: left forearm; ke1 11:15 Follow up: Response: Pain is decreased ke1 10:46 Drug: Phenergan (promethazine) 12.5 mg Route: IVP; Site: left forearm; ke1 11:00 Follow up: Response: Nausea is decreased ke1 Disposition Summary: 06/25/21 11:50 Discharge Ordered Location: Home pm1 Problem: new pm1 Symptoms: have improved pm1 Condition: Stable pm1 Diagnosis - Calculus of ureter - 4 mm calculus distal right ureter pm1 Followup: pm1 - With: Emergency Department - When: As needed - Reason: Worsening of condition Followup: pm1 - With: Private Physician - When: 2 - 3 days - Reason: Recheck today's complaints, Continuance of care, Re-evaluation by your physician Discharge Instructions: - Discharge Summary Sheet pm1 - Kidney Stones pm1 - Dietary Guidelines to Help Prevent Kidney Stones pm1 Forms: - Medication Reconciliation Form pm1 - Thank You Letter pm1 - Antibiotic Education pm1 - Prescription Opioid Use pm1 Prescriptions: - Flomax 0.4 mg Oral capsule - take 1 capsule by ORAL route once daily 1/2 hour following the same meal each pm1 day; 10 capsule; Refills: 0, Product Selection Permitted - Cipro 500 mg Oral Tablet - take 1 tablet by ORAL route every 12 hours for 7 days; 14 tablet; Refills: 0, pm1 Product Selection Permitted - promethazine 25 mg Oral Tablet - take 1 tablet by ORAL route every 6 hours As needed; 20 tablet; Refills: 0, pm1 Product Selection Permitted - Tylenol-Codeine #3 300 mg-30 mg Oral - take 2 tablet by ORAL route every 6 hours As needed; 20 tablet; Refills: 0, pm1 Product Selection Permitted Addendum: 06/28/2021 23:10 Co-signature as Attending Physician, Hal Nails MD. r n Signatures: Dispatcher [employer] EDHal Frost MD MD rn Marinas, Patrick, PATHOLOGY LABORATORY AIDES TEACHER PATHOLOGY LABORATORY AIDES TEACHER pm1 Steve Mcguire RN RN ke1 Corrections: (The following items were deleted from the chart) 06/25 07:47 07:44 Social history: Smoking status: Patient denies any tobacco usage or history of. ke1 ke1
--- NOTE | 2021-06-25 11:50 | ER ---
Nurse's Notes [facility] Name: Georges Mendoza Age: 60 yrs Sex: Male : 1960 Arrival Date: 06/25/2021 Time: 07:28 Bed 20 Private MD: Tom Brandt Diagnosis: Calculus of ureter-4 mm calculus distal right ureter Presentation: 06/25 07:34 Chief complaint: Patient states: " I have kidney stone I know exactly where it is on my ke1 right side", patient c/o excruciated pain on right side that started this at 3 am today. 07:37 Coronavirus screen: Vaccine status: Patient reports receiving the 2nd dose of the covid ke1 vaccine. Ebola Screen: No symptoms or risks identified at this time. Onset of symptoms was June 25, 2021. 07:37 Method Of Arrival: Ambulatory [facility] 07:37 Acuity: WICHO 3 ke1 07:39 Risk Assessment: Do you want to hurt yourself or someone else? Patient reports no ke1 desire to harm self or others. 07:39 Initial Sepsis Screen: Does the patient meet any 2 criteria? No. Patient's initial ke1 sepsis screen is negative. Does the patient have a suspected source of infection? No. Patient's initial sepsis screen is negative. Triage Assessment: 07:47 General: Appears distressed, uncomfortable, Behavior is cooperative, anxious, crying. ke1 Pain: Complains of pain in flank right Pain currently is 10 out of 10 on a pain scale. Aggravated by Noted to be grimacing, moaning, Also complains of inability to concentrate. 07:47 Neuro: Level of Consciousness is awake, alert, obeys commands, Oriented to person, ke1 place, time, situation. GI: Abdomen is round distended, obese, Bowel sounds present X 4 quads. Abdomen is tender to palpation X 4 quads. : Urine is clear. Derm: stitches on R arm. Historical: - Allergies: 07:44 No Known Allergies; ke1 - PMHx: 07:44 Kidney stone; Hypertensive disorder; Diabetes mellitus; ke1 - PSHx: 07:44 kidney ablation; back surgery; Appendectomy; ke1 - Immunization history:: Adult Immunizations . - Social history:: Smoking status: Patient denies any tobacco usage or history of. Screenin:17 Abuse screen: Denies threats or abuse. Nutritional screening: No deficits noted. ke1 Tuberculosis screening: No symptoms or risk factors identified. Fall Risk None identified. Assessment: 08:00 General: see triage note. ke1 08:30 Pain: Complains of pain in flank right Pain currently is 10 out of 10 on a pain scale. ke1 Alleviated by medications. 09:30 Reassessment: No changes from previously documented assessment. ke1 10:00 Reassessment: No changes from previously documented assessment. ke1 10:45 Pain: Pain currently is 3 out of 10 on a pain scale. Noted to be sleeping and snoring ke1 at this time. 12:09 Reassessment: No changes from previously documented assessment. ke1 Vital Signs: 07:39 BP 155 / 106; Pulse 112; Resp 19; Temp 97.6; Pulse Ox 99% ; ke1 08:00 BP 176 / 106; Pulse 72; Resp 19; Pulse Ox 95% ; ke1 09:00 BP 174 / 97; Pulse 82; Resp 18; Pulse Ox 94% on R/A; ke1 10:00 BP 150 / 70; Pulse 80; Resp 17; Pulse Ox 95% on R/A; ke1 11:00 BP 162 / 110; Pulse 82; Resp 18; Pulse Ox 92% on R/A; ke1 11:47 BP 149 / 79; Pulse 80; Resp 18; Pulse Ox 95% on R/A; ke1 ED Course: 07:28 Patient arrived in ED. mr 07:29 Tom Brandt DO is Private Physician. mr 07:31 Raj Abreu NP is PHCP. pm1 07:31 Hal Nails MD is Attending Physician. pm1 07:32 Arm band placed on Patient placed in an exam room, on a stretcher. ll1 07:34 Steve Mcguire RN is Primary Nurse. ke1 07:38 Triage completed. ke1 07:56 Inserted saline lock: 22 gauge in left forearm, using aseptic technique. kd3 10:17 Patient has correct armband on for positive identification. Bed in low position. Call ke1 light in reach. Side rails up X 1. Adult w/ patient. 10:36 Steve Mcguire RN is Primary Nurse. ke1 12:05 IV discontinued. ke1 12:05 No provider procedures requiring assistance completed. ke1 Administered Medications: 08:00 Drug: fentaNYL (PF) 50 mcg Route: IVP; Site: left forearm; ke1 08:15 Follow up: Response: Pain is unchanged, physician notified ke1 08:00 Drug: Zofran (Ondansetron) 4 mg Route: IVP; Site: left forearm; ke1 08:25 Follow up: Response: Nausea is decreased ke1 08:30 Follow up: Response: Nausea is decreased ke1 08:00 Drug: NS 0.9% 1000 ml Route: IV; Rate: 1000 ml; Site: left forearm; ke1 09:30 Follow up: IV Status: Completed infusion ke1 08:25 Drug: fentaNYL (PF) 50 mcg Route: IVP; Site: left forearm; ke1 09:00 Follow up: Response: Pain is unchanged, physician notified ke1 09:09 Drug: Dilaudid (HYDROmorphone) 1 mg Route: IVP; Site: left forearm; ke1 09:25 Follow up: Response: Pain is decreased ke1 09:09 Drug: Zofran (Ondansetron) 4 mg Route: IVP; Site: left forearm; ke1 09:30 Follow up: Response: Nausea is decreased ke1 10:13 Drug: Magnesium Sulfate 1 grams Route: IVPB; Infused Over: 1 hrs; Site: left forearm; ke1 11:13 Follow up: IV Status: Completed infusion ke1 10:13 Drug: Flomax (tamsulosin) 0.4 mg Route: PO; ke1 11:00 Follow up: Response: No adverse reaction ke1 10:46 Drug: Dilaudid (HYDROmorphone) 1 mg Route: IVP; Site: left forearm; ke1 11:15 Follow up: Response: Pain is decreased ke1 10:46 Drug: Phenergan (promethazine) 12.5 mg Route: IVP; Site: left forearm; ke1 11:00 Follow up: Response: Nausea is decreased ke1 Intake: 11:56 IV: 1150ml (IV Fluid); Total: 1150ml. ke1 Output: 11:56 Urine: 1250ml; Total: 1250ml. ke1 Outcome: 11:50 Discharge ordered by MD. pm1 12:06 Discharged to home ambulatory. ke1 12:06 Condition: improved 12:06 Discharge instructions given to patient. 12:11 Patient left the ED. ke1 Signatures: Angelia Martini Patrick, CORE ANALYSIS OPERATOR CORE ANALYSIS OPERATOR pm1 Laure Willingham RN RN ll1 Katina Lowe RN RN kd3 Steve Mcguire RN RN ke1 Corrections: (The following items were deleted from the chart) 07:44 07:39 BP 155 / 106; Pulse 112bpm; Resp 19bpm; Pulse Ox 99%; ke1 ke1 07:47 07:44 Social history: Smoking status: Patient denies any tobacco usage or history of. ke1 ke1 08:36 07:47 Pain: Complains of pain in abdomen right Pain currently is 10 out of 10 on a pain ke1 scale. Quality of pain is described as ke1 09:19 09:18 General: . ke1 ke1 11:47 09:00 BP 150 / 70; Pulse 80bpm; Resp 17bpm; Pulse Ox 95% RA; ke1 ke1 12:10 10:45 Pain: Pain currently is 3 out of 10 on a pain scale. ke1 ke1
[2021-06-25 12:22] VITALS: BP 149/79; O2SAT 95
== END 2021-06-25 12:11 | disposition home or self-care (01) ==
LOC: ER 07:49
DX: N20.1 Calculus of ureter (principal); I10 Essential (primary) hypertension; E11.9 Type 2 diabetes mellitus without complications; Z87.442 Personal history of urinary calculi
CPT/HCPCS: 96365; 96361; 85025; 80048; 36415; 80076; 83690; 76377; 74176; 96375; 99283; J2550; J3010 ×2; J3475; J1170 ×2; J7030; J2405 ×2; 81003; 81015

== ENCOUNTER 2021-08-23 10:28 | Day surgery (SDC) | payer MEDICARE ==
[2021-08-23] MEDS ORDERED: NA CHLORIDE 0.9% 1,000 ML ONE (10:39)
[2021-08-23] MEDS ORDERED: LIDOCAINE 1% MPF 30 ML VIAL IJ ONE ×2 (11:00→12:31)
[2021-08-23] MEDS ORDERED: dexAMETHasone 4 MG/ML VIAL IM ONE (11:01)
[2021-08-23] MEDS ORDERED: TRIAMCINOLONE ACETON 40 MG/ML VIAL ONE ×2 (11:27→12:12)
[2021-08-23] MEDS ORDERED: LIDOCAINE 1% 20 ML MDV ONE (11:28)
[2021-08-23] MEDS ORDERED: propofoL 200 MG/20 ML VIAL IV ONE ×2 (11:33)
[2021-08-23] MEDS ORDERED: LIDOCAINE 1% MPF 5 ML VIAL ONE (11:33)
[2021-08-23] MEDS ORDERED: MIDAZOLAM HCL 2 MG/2 ML INJ ONE (11:33)
[2021-08-23] MEDS ORDERED: FENTANYL CITR 100 MCG/2 ML ONE (11:33)
[2021-08-23] MEDS ORDERED: LIDOCAINE 1% MPF 30 ML VIAL ONE (12:15)
[2021-08-23] MEDS ORDERED: TRIAMCINOLONE ACETON 40 MG/ML VIAL IM ONE (12:16)
[2021-08-23] MEDS ORDERED: NS 0.9% VIAL 10 ML ONE (12:30)
[2021-08-23 13:07] VITALS: O2SAT 96
--- NOTE | 2021-08-23 13:34 | RAD REPORT ---
EXAM DESCRIPTION: RAD - Fluoroscopy <1 Hour - 08/23/2021 1:19 pm CLINICAL HISTORY: Device placement lumbar spine injections FINDINGS: Needle placed into the posterior lumbar spine for pain injection The examination was performed by Dr. Jefferson Ninety fluoroscopic spot images obtained. Fluoroscopy time 1.6 minutes
[2021-08-23 14:08] VITALS: BP 145/75; TEMP 97.3
== END 2021-08-23 13:55 | disposition home or self-care (01) ==
LOC: OR 10:28
PROVIDERS: ATTEND Pain Medicine Interventional Pain Medicine
PROC: B01BZZZ Fluoroscopy of Spinal Cord (ICD-10-PCS; 2021-08-23)
PROC: 3E0S33Z Introduction of Anti-inflammatory into Epidural Space, Percutaneous Approach (ICD-10-PCS; principal; 2021-08-23 12:00)
DX: M54.16 Radiculopathy, lumbar region (principal); E11.9 Type 2 diabetes mellitus without complications; F32.A Depression, unspecified; Z20.822 Contact with and (suspected) exposure to COVID-19
CPT/HCPCS: 62323; 82947 ×2; U0003; J2704 ×2; J3301 ×3; J2250; J3010; J7030; 76000; J1100

== ENCOUNTER 2022-05-10 06:48 | Emergency (ER) | payer OTHER, MEDICARE ==
--- OUTSIDE RECORDS SUMMARY | 2022-05-10 07:00 | XMS REPORT | Continuity of Care Document ---
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 one) one) 00:00: - [facility] 00 [facility] Kensukhwinder Kenalog 2020-0 No 40mg Common (Triamcinol (Triamcinol 3-23 S pirit one) one) 00:00: - [facility] 00 [facility] Kensukhwinder Kenalog 2020-0 No 40mg Common (Triamcinol (Triamcinol 3-23 S pirit one) one) 00:00: - [facility] 00 [facility] Kenalog Kenalog 2020-0 No 40mg Common (Triamcinol (Triamcinol 3-23 S pirit one) one) 00:00: - [facility] 00 [facility] Kensukhwinder Kenalog 2020-0 No 40mg Common (Triamcinol (Triamcinol 3-23 S pirit one) one) 00:00: - [facility] 00 [facility] K[place]hwinder Kenalog 2020-0 No 40mg Common (Triamcinol (Triamcinol 3-23 S pirit one) one) 00:00: - [facility] 00 [facility] Kenalog Kenalog 2020-0 No 40mg Common (Triamcinol (Triamcinol 3-23 S pirit one) one) 00:00: - [facility] 00 [facility] Kenalog Kenalog 2020-0 No 40mg Common (Triamcinol (Triamcinol 3-23 S pirit one) one) 00:00: - [facility] 00 [facility] Kenalog Kenalog 2020-0 No 40mg Common (Triamcinol (Triamcinol 3-23 S pirit one) one) 00:00: - [facility] 00 [facility] Kenalog Kenalog 2020-0 No 40mg Common (Triamcinol (Triamcinol 3-23 S pirit one) one) 00:00: - [facility] 00 [facility] Kensukhwinder Kenalog 2020-0 No 40mg Common (Triamcinol (Triamcinol 3-23 S pirit one) one) 00:00: - [facility] 00 [facility] K[place]hwinder Kenalog 2020-0 No 40mg Common (Triamcinol (Triamcinol 3-23 S pirit one) one) 00:00: - [facility] 00 [facility] Kenalog Kenalog 2020-0 No 40mg Common (Triamcinol (Triamcinol 3-23 S pirit one) one) 00:00: - [facility] 00 [facility] Kenalog Kenalog 2020-0 No 40mg Common (Triamcinol (Triamcinol 3-23 S pirit one) one) 00:00: - [facility] 00 [facility] Kenalog Kenalog 2020-0 No 40mg Common (Triamcinol (Triamcinol 3-23 S pirit one) one) 00:00: - [facility] 00 [facility] Kenalog Kenalog 2020-0 No 40mg Common (Triamcinol (Triamcinol 3-23 S pirit one) one) 00:00: - [facility] 00 [facility] Kenalog Kenalog 2020-0 No 40mg Common (Triamcinol (Triamcinol 3-23 S pirit one) one) 00:00: - [facility] 00 [facility] Kenalog Kenalog 2020-0 No 40mg Common (Triamcinol (Triamcinol 3-23 S pirit one) one) 00:00: - [facility] 00 [facility] Kenalog Kenalog 2020-0 No 40mg Common (Triamcinol (Triamcinol 3-23 S pirit one) one) 00:00: - [facility] 00 [facility] Kenalog Kenalog 2020-0 No 40mg Common (Triamcinol (Triamcinol 3-23 S pirit one) one) 00:00: - [facility] Trulicity Trulicity 2020-0 Yes Tom one C ommon 7-29 Brandt injection Spirit 00:00: - [facility] 00 [facility] Bupivicaine Bupivicaine 2020-0 No 5mL Common Coinjock Coinjock 6-30 Spirit 00:00: - [facility] 00 [facility] Kenalog Kenalog 2020-0 No 40mg Common (Triamcinol (Triamcinol 6-30 S pirit one) one) 00:00: - [facility] 00 [facility] Bupivicaine Bupivicaine 2020-0 No 5mL Common Coinjock Coinjock 6-30 Spirit 00:00: - [facility] 00 [facility] Kenalog Kenalog 2020-0 No 40mg Common (Triamcinol (Triamcinol 6-30 S pirit one) one) 00:00: - [facility] 00 [facility] Bupivicaine Bupivicaine 2020-0 No 5mL Common Coinjock Coinjock 6-30 Spirit 00:00: - [facility] 00 [facility] Kenalog Kenalog 2020-0 No 40mg Common (Triamcinol (Triamcinol 6-30 S pirit one) one) 00:00: - [facility] 00 [facility] Bupivicaine Bupivicaine 2020-0 No 5mL Common Coinjock Coinjock 6-30 Spirit 00:00: - [facility] 00 [facility] Kenalog Kenalog 2020-0 No 40mg Common (Triamcinol (Triamcinol 6-30 S pirit one) one) 00:00: - [facility] 00 [facility] Bupivicaine Bupivicaine 2020-0 No 5mL Common Coinjock Coinjock 6-30 Spirit 00:00: - [facility] 00 [facility] Kenalog Kenalog 2020-0 No 40mg Common (Triamcinol (Triamcinol 6-30 S pirit one) one) 00:00: - [facility] 00 [facility] Bupivicaine Bupivicaine 2020-0 No 5mL Common Coinjock Coinjock 6-30 Spirit 00:00: - [facility] 00 [facility] Kenalog Kenalog 2020-0 No 40mg Common (Triamcinol (Triamcinol 6-30 S pirit one) one) 00:00: - [facility] 00 [facility] Bupivicaine Bupivicaine 2020-0 No 5mL Common Coinjock Coinjock 6-30 Spirit 00:00: - [facility] 00 [facility] Kenalog Kenalog 2020-0 No 40mg Common (Triamcinol (Triamcinol 6-30 S pirit one) one) 00:00: - [facility] 00 [facility] Bupivicaine Bupivicaine 2020-0 No 5mL Common Coinjock Coinjock 6-30 Spirit 00:00: - [facility] 00 [facility] Kenalog Kenalog 2020-0 No 40mg Common (Triamcinol (Triamcinol 6-30 S pirit one) one) 00:00: - [facility] 00 [facility] Bupivicaine Bupivicaine 2020-0 No 5mL Common Coinjock Coinjock 6-30 Spirit 00:00: - [facility] 00 [facility] Kenalog Kenalog 2020-0 No 40mg Common (Triamcinol (Triamcinol 6-30 S pirit one) one) 00:00: - [facility] 00 [facility] Bupivicaine Bupivicaine 2020-0 No 5mL Common Coinjock Coinjock 6-30 Spirit 00:00: - [facility] 00 [facility] Kenalog Kenalog 2020-0 No 40mg Common (Triamcinol (Triamcinol 6-30 S pirit one) one) 00:00: - [facility] 00 [facility] Bupivicaine Bupivicaine 2020-0 No 5mL Common Coinjock Coinjock 6-30 Spirit 00:00: - [facility] 00 [facility] Kenalog Kenalog 2020-0 No 40mg Common (Triamcinol (Triamcinol 6-30 S pirit one) one) 00:00: - [facility] 00 [facility] Bupivicaine Bupivicaine 2020-0 No 5mL Common Coinjock Coinjock 6-30 Spirit 00:00: - [facility] 00 [facility] Kenalog Kenalog 2020-0 No 40mg Common (Triamcinol (Triamcinol 6-30 S pirit one) one) 00:00: - [facility] 00 [facility] Bupivicaine Bupivicaine 2020-0 No 5mL Common Coinjock Coinjock 6-30 Spirit 00:00: - [facility] 00 [facility] Kenalog Kenalog 2020-0 No 40mg Common (Triamcinol (Triamcinol 6-30 S pirit one) one) 00:00: - [facility] 00 [facility] Bupivicaine Bupivicaine 2020-0 No 5mL Common Coinjock Coinjock 6-30 Spirit 00:00: - [facility] 00 [facility] Kenalog Kenalog 2020-0 No 40mg Common (Triamcinol (Triamcinol 6-30 S pirit one) one) 00:00: - [facility] 00 [facility] Bupivicaine Bupivicaine 2020-0 No 5mL Common Coinjock Coinjock 6-30 Spirit 00:00: - [facility] 00 [facility] Kenalog Kenalog 2020-0 No 40mg Common (Triamcinol (Triamcinol 6-30 S pirit one) one) 00:00: - [facility] 00 [facility] Bupivicaine Bupivicaine 2020-0 No 5mL Common Coinjock Coinjock 6-30 Spirit 00:00: - [facility] 00 [facility] Kenalog Kenalog 2020-0 No 40mg Common (Triamcinol (Triamcinol 6-30 S pirit one) one) 00:00: - [facility] 00 [facility] Bupivicaine Bupivicaine 2020-0 No 5mL Common Coinjock Coinjock 6-30 Spirit 00:00: - [facility] 00 [facility] Kenalog Kenalog 2020-0 No 40mg Common (Triamcinol (Triamcinol 6-30 S pirit one) one) 00:00: - [facility] 00 [facility] Bupivicaine Bupivicaine 2020-0 No 5mL Common Coinjock Coinjock 6-30 Spirit 00:00: - [facility] 00 [facility] Kenalog Kenalog 2020-0 No 40mg Common (Triamcinol (Triamcinol 6-30 S pirit one) one) 00:00: - [facility] 00 [facility] Bupivicaine Bupivicaine 2020-0 No 5mL Common Coinjock Coinjock 6-30 Spirit 00:00: - [facility] 00 [facility] Kenalog Kenalog 2020-0 No 40mg Common (Triamcinol (Triamcinol 6-30 S pirit one) one) 00:00: - [facility] 00 [facility] Bupivicaine Bupivicaine 2020-0 No 5mL Common Coinjock Coinjock 6-30 Spirit 00:00: - [facility] 00 [facility] Kenalog Kenalog 2020-0 No 40mg Common (Triamcinol (Triamcinol 6-30 S pirit one) one) 00:00: - [facility] 00 [facility] Bupivicaine Bupivicaine 2020-0 No 5mL Common Coinjock Coinjock 6-30 Spirit 00:00: - [facility] 00 [facility] Kenalog Kenalog 2020-0 No 40mg Common (Triamcinol (Triamcinol 6-30 S pirit one) one) 00:00: - [facility] 00 [facility] Bupivicaine Bupivicaine 2020-0 No 5mL Common Coinjock Coinjock 6-30 Spirit 00:00: - [facility] 00 [facility] Kenalog Kenalog 2020-0 No 40mg Common (Triamcinol (Triamcinol 6-30 S pirit one) one) 00:00: - [facility] 00 [facility] Bupivicaine Bupivicaine 2020-0 No 5mL Common Coinjock Coinjock 6-30 Spirit 00:00: - [facility] 00 [facility] Kenalog Kenalog 2020-0 No 40mg Common (Triamcinol (Triamcinol 6-30 S pirit one) one) 00:00: - [facility] 00 [facility] Bupivicaine Bupivicaine 2020-0 No 5mL Common Coinjock Coinjock 6-30 Spirit 00:00: - [facility] 00 [facility] Kenalog Kenalog 2020-0 No 40mg Common (Triamcinol (Triamcinol 6-30 S pirit one) one) 00:00: - [facility] 00 [facility] Bupivicaine Bupivicaine 2020-0 No 5mL Common Coinjock Coinjock 6-30 Spirit 00:00: - [facility] 00 [facility] Kenalog Kenalog 2020-0 No 40mg Common (Triamcinol (Triamcinol 6-30 S pirit one) one) 00:00: - [facility] 00 [facility] Bupivicaine Bupivicaine 2020-0 No 5mL Common Coinjock Coinjock 6-30 Spirit 00:00: - [facility] 00 [facility] Kenalog Kenalog 2020-0 No 40mg Common (Triamcinol (Triamcinol 6-30 S pirit one) one) 00:00: - [facility] 00 [facility] Bupivicaine Bupivicaine 2020-0 No 5mL Common Coinjock Coinjock 6-30 Spirit 00:00: - [facility] 00 [facility] Kenalog Kenalog 2020-0 No 40mg Common (Triamcinol (Triamcinol 6-30 S pirit one) one) 00:00: - [facility] 00 [facility] Tradjenta Tradjenta 2020-0 Yes Tom 1 tablet Common 6-10 Brandt Spirit 00:00: - [facility] 00 [facility] MetFORMIN MetFORMIN 2020-0 Yes Tom 1 tab with Common HCl ER HCl ER 6-02 Brandt meals Spirit 00:00: - [facility] 00 [facility] Victoza 18 Victoza 18 2020-0 No QD Victoza 18 MG/3ML MG/3ML 6-02 MG/3ML 00:00: 00 Victoza 18 Victoza 18 2020-0 No QD Victoza 18 MG/3ML MG/3ML 6-02 MG/3ML 00:00: 00 Victoza 18 Victoza 18 2020-0 No QD Victoza 18 MG/3ML MG/3ML 6-02 MG/3ML 00:00: 00 Victoza 18 Victoza 18 2020-0 No QD Victoza 18 MG/3ML MG/3ML 6-02 MG/3ML 00:00: 00 Victoza 18 Victoza 18 2020-0 No QD Victoza 18 MG/3ML MG/3ML 6-02 MG/3ML 00:00: 00 Victoza 18 Victoza 18 2020-0 No QD Victoza 18 MG/3ML MG/3ML 6-02 MG/3ML 00:00: 00 Victoza 18 Victoza 18 2020-0 No QD Victoza 18 MG/3ML MG/3ML 6-02 MG/3ML 00:00: 00 Victoza 18 Victoza 18 2020-0 No QD Victoza 18 MG/3ML MG/3ML 6-02 MG/3ML 00:00: 00 Victoza 18 Victoza 18 2020-0 No QD Victoza 18 MG/3ML MG/3ML 6-02 MG/3ML 00:00: 00 Victoza 18 Victoza 18 2020-0 No QD Victoza 18 MG/3ML MG/3ML 6-02 MG/3ML 00:00: 00 Victoza 18 Victoza 18 2020-0 No QD Victoza 18 MG/3ML MG/3ML 6-02 MG/3ML 00:00: 00 Victoza 18 Victoza 18 2020-0 No QD Victoza 18 MG/3ML MG/3ML 6-02 MG/3ML 00:00: 00 Victoza 18 Victoza 18 2020-0 No QD Victoza 18 MG/3ML MG/3ML 6-02 MG/3ML 00:00: 00 Victoza 18 Victoza 18 2020-0 No QD Victoza 18 MG/3ML MG/3ML 6-02 MG/3ML 00:00: 00 Victoza 18 Victoza 18 2020-0 No QD MG/3ML MG/3ML 6-02 00:00: 00 Victoza 18 Victoza 18 2020-0 No QD Victoza 18 MG/3ML MG/3ML 6-02 MG/3ML 00:00: 00 Victoza 18 Victoza 18 2020-0 No QD Victoza 18 MG/3ML MG/3ML 6-02 MG/3ML 00:00: 00 Victoza 18 Victoza 18 2020-0 No QD Victoza 18 MG/3ML MG/3ML 6-02 MG/3ML 00:00: 00 Victoza 18 Victoza 18 2020-0 No QD Victoza 18 MG/3ML MG/3ML 6-02 MG/3ML 00:00: 00 Victoza 18 Victoza 18 2020-0 No QD Victoza 18 MG/3ML MG/3ML 6-02 MG/3ML 00:00: 00 Victoza 18 Victoza 18 2019-0 No QD Victoza 18 MG/3ML MG/3ML 6-02 MG/3ML 00:00: 00 Victoza 18 Victoza 18 2019-0 No QD Victoza 18 MG/3ML MG/3ML 6-02 MG/3ML 00:00: 00 Victoza 18 Victoza 18 2019-0 No QD Victoza 18 MG/3ML MG/3ML 6-02 MG/3ML 00:00: 00 Victoza 18 Victoza 18 2019-0 No QD Victoza 18 MG/3ML MG/3ML 6-02 MG/3ML 00:00: 00 Victoza 18 Victoza 18 2019-0 No QD Victoza 18 MG/3ML MG/3ML 6-02 MG/3ML 00:00: 00 Victoza 18 Victoza 18 2019-0 No QD Victoza 18 MG/3ML MG/3ML 6-02 MG/3ML 00:00: 00 Victoza 18 Victoza 18 2019-0 No QD Victoza 18 MG/3ML MG/3ML 6-02 MG/3ML 00:00: 00 ALPRAZolam Yes 2mg QD Take 2 mg [facility] (XANAX) 2 5-[address] MG tablet 15:05: nightly as [facility] 32 needed for l anxiety. aspirin Yes [id number] 81mg QD Take 1 Meth tee (ECOTRIN) 3-26 tablet (81 st 81 MG 00:00: mg total) Hospita enteric 00 by mouth l coated daily. tablet acetaminoph Yes 1{tbl} Take 1 [facility] en-codeine 8-[address] (TYLENOL 00:00: mouth as Hospi ta WITH 00 needed. l CODEINE #3) 300-30 mg per tablet albuterol Yes Acute 2{puff} Inhale 2 Rosa 90 8-12 bronchitis, Puffs by Heal th mcg/actuati 00:00: unspecified mouth 4 on inhaler 00 organism times daily as needed for Wheezing (or cough). 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 lisinopril Yes Essential 40mg QD Take 1 Rosa (ZESTRIL) 8-12 hypertensio tablet by [facility] 40 mg 00:00: n mouth tablet 00 daily. allopurinol Yes Chronic 300mg QD Take 1 Rosa (ZYLOPRIM) 8-12 gout tablet by [facility] 300 mg 00:00: involving mouth tablet 00 toe of left daily foot gout. without tophus, unspecified cause gabapentin Yes Spinal 800mg Take 1 [facility] rris (NEURONTIN) 8-12 stenosis of tablet by [facility] 800 mg 00:00: lumbar mouth 3 tablet 00 region with times neurogenic daily. claudicatio n glyBURIDE-m Yes Uncontrolle 2{tbl} Q.5D Take 2 Rosa etFORMIN 8-12 d type 2 tablets by liseth (GLUCOVANCE 00:00: diabetes mouth 2 ) 5-500 mg 00 mellitus times per tablet without daily complicatio (with n, without meals). long-term current use of insulin fenofibrate Yes Hypertrigly 145mg QD Take 1 Rosa nanocrystal 8-12 ceridemia tablet by [facility] lized 00:00: mouth (TRICOR) 00 daily. 145 mg tablet empaglifloz Yes Uncontrolle 1{tbl} Take 1 Rosa in 8-12 d type 2 tablet by [facility] (JARDIANCE) 00:00: diabetes mouth 10 mg 00 mellitus every tablet without morning. complicatio n, without long-term current use of insulin blood Yes Uncontrolle Other one Rosa glucose 5-24 d type 2 broken. [facility] h meter 00:00: diabetes 00 mellitus without complicatio n, without long-term current use of insulin blood Yes Uncontrolle Use 2 Daniel is glucose 5-24 d type 2 times [facility] (PRECISION 00:00: diabetes weekly XTRA TEST 00 mellitus (once per STRIPS) without day on test strips complicatio Mon,Thurs) n, without to test long-term blood current use sugar. of insulin lancets 28 Yes Uncontrolle Use 2 Rosa gauge 5-24 d type 2 times Health 00:00: diabetes weekly as 00 mellitus directed. without complicatio n, without long-term current use of insulin tamsulosin Yes Nephrolithi .4mg QD Take 1 Rosa (FLOMAX) 5-[facility]: mouth extended 00 daily. release capsule cyclobenzap Yes Spinal 10mg Take 1 [place] rris rine 4-19 stenosis of tablet by [facility] lt (FLEXERIL) 00:00: lumbar mouth 2 10 mg 00 region with times tablet neurogenic daily as claudicatio needed for n Muscle Spasms. Miscellaneo Yes Essential by [facility] 2-21 hypertensio Misc.(Non- Health Supply 00:00: n, benign Drug; (BLOOD 00 Combo PRESSURE Route) CUFF) Misc route. CPAP Device 2017-05 Yes Obstructive Diagnosis: Rosa 0-23 sleep apnea [facility] Health 00:00: on CPAP 327.23CPAP 00 Pressure: 11-12 cm H2O with mask (fit to patient) and supplies as needed: No. traZODone Yes LATISHA Take (3) Daniel is (DESYREL) 8-28 (generalize tablet H ealth 50 mg 00:00: d anxiety orally at tablet 00 disorder) bedtime for insomnia. 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 release traumatic tablet brain injury ALPRAZolam ALPRAZolam No 1{table QD ALPRAZolam 2 MG 2 MG t} 2 MG Cyclobenzap Cyclobenzap No Cyclobenza rine HCl 10 rine HCl 10 sarita HCl MG MG 10 MG Gabapentin Gabapentin No 1{capsu BID Gabapentin 300 MG 300 MG le} 300 MG metFORMIN metFORMIN No BID metFORMIN HCl ER 750 HCl ER 750 HCl ER 750 MG MG MG Aspir-Low Aspir-Low No 1{table QD Aspir-Low 81 MG 81 MG t} 81 MG Rosuvastati Rosuvastati No 1{table QD Rosuvastat n Calcium n Calcium t} in Calcium 20 MG 20 MG 20 MG Jardiance Jardiance No 1{table QD Jardiance 25 MG 25 MG t} 25 MG Ibuprofen Ibuprofen No QID Ibuprofen 400 MG 400 MG 400 MG Metoprolol Metoprolol No 1{table QD Metoprolol Succinate Succinate t} Succinate ER 25 MG ER 25 MG ER 25 MG Acetaminoph Acetaminoph No 1{table Acetaminop en-Codeine en-Codeine t_as_ne hen-Codein #3 300-30 #3 300-30 eded} e #3 MG MG 300-30 MG Aspir-Low Aspir-Low No 1{table QD Aspir-Low 81 MG 81 MG t} 81 MG Jardiance Jardiance No 1{table QD Jardiance 25 MG 25 MG t} 25 MG Lisinopril Lisinopril No 1{table QD Lisinopril 40 MG 40 MG t} 40 MG Lunesta 2 Lunesta 2 No 1{table QD Lunesta 2 MG MG t_immed MG iately_ before_ bedtime } Cyclobenzap Cyclobenzap No 1{table QD Cyclobenza rine HCl 10 rine HCl 10 t_at_be sarita HCl MG MG dtime_a 10 MG s_neede d} Tradjenta 5 Tradjenta 5 No 1{table QD Tradjenta MG MG t} 5 MG Metoprolol Metoprolol No 1{table QD Metoprolol Succinate Succinate t} Succinate ER 25 MG ER 25 MG ER 25 MG Cyclobenzap Cyclobenzap No Cyclobenza rine HCl 10 rine HCl 10 sarita HCl MG MG 10 MG Rosuvastati Rosuvastati No 1{table QD Rosuvastat n Calcium n Calcium t} in Calcium 20 MG 20 MG 20 MG metFORMIN metFORMIN No BID metFORMIN HCl ER 750 HCl ER 750 HCl ER 750 MG MG MG Victoza 18 Victoza 18 No Victoza 18 MG/3ML MG/3ML MG/3ML Gabapentin Gabapentin No 1{capsu BID Gabapentin 300 MG 300 MG le} 300 MG ALPRAZolam ALPRAZolam No 1{table QD ALPRAZolam 1 MG 1 MG t} 1 MG glipiZIDE glipiZIDE No 1{table QD glipiZIDE XL 10 MG XL 10 MG t_with_ XL [address]} Pantoprazol Pantoprazol No 1{table QD Pantoprazo e Sodium 40 e Sodium 40 t} le Sodium MG MG 40 MG Allopurinol Allopurinol No 1{table QD Allopurino 300 MG 300 MG t} l 300 MG Lexapro 10 Lexapro 10 No 1{table QD Lexapro 10 MG MG t} MG traZODone traZODone No 1{table QD traZODone HCl 100 MG HCl 100 MG t_at_be HCl 100 MG dtime} Tradjenta 5 Tradjenta 5 No 1{table QD Tradjenta MG MG t} 5 MG Rosuvastati Rosuvastati No 1{table QD Rosuvastat n Calcium n Calcium t} in Calcium 20 MG 20 MG 20 MG predniSONE predniSONE No 2{table QD predniSONE 20 MG 20 MG t} 20 MG Cyclobenzap Cyclobenzap No Cyclobenza rine HCl 10 rine HCl 10 sarita HCl MG MG 10 MG Lunesta 2 Lunesta 2 No 1{table QD Lunesta 2 MG MG t_immed MG iately_ before_ bedtime } Lisinopril Lisinopril No 1{table QD Lisinopril 40 MG 40 MG t} 40 MG Lexapro 10 Lexapro 10 No 1{table QD Lexapro 10 MG MG t} MG Metoprolol Metoprolol No 1{table QD Metoprolol Succinate Succinate t} Succinate ER 25 MG ER 25 MG ER 25 MG guaiFENesin guaiFENesin No 1{table BID guaiFENesi ER 600 MG ER 600 MG t_as_ne n ER 600 eded} MG Pantoprazol Pantoprazol No 1{table QD Pantoprazo e Sodium 40 e Sodium 40 t} le Sodium MG MG 40 MG metFORMIN metFORMIN No BID metFORMIN HCl ER 750 HCl ER 750 HCl ER 750 MG MG MG glipiZIDE glipiZIDE No 1{table QD glipiZIDE XL 10 MG XL 10 MG t_with_ XL [address]} Gabapentin Gabapentin No 1{capsu BID Gabapentin 300 MG 300 MG le} 300 MG ALPRAZolam ALPRAZolam No 1{table QD ALPRAZolam 1 MG 1 MG t} 1 MG Victoza 18 Victoza 18 No Victoza 18 MG/3ML MG/3ML MG/3ML Cyclobenzap Cyclobenzap No 1{table QD Cyclobenza rine HCl 10 rine HCl 10 t_at_be sarita HCl MG MG dtime_a 10 MG s_neede d} Jardiance Jardiance No 1{table QD Jardiance 25 MG 25 MG t} 25 MG Loratadine Loratadine No 1{table QD Loratadine 10 MG 10 MG t} 10 MG traZODone traZODone No 1{table QD traZODone HCl 100 MG HCl 100 MG t_at_be HCl 100 MG dtime} Allopurinol Allopurinol No 1{table QD Allopurino 300 MG 300 MG t} l 300 MG Aspir-Low Aspir-Low No 1{table QD Aspir-Low 81 MG 81 MG t} 81 MG Tradjenta 5 Tradjenta 5 No 1{table QD Tradjenta MG MG t} 5 MG Rosuvastati Rosuvastati No 1{table QD Rosuvastat n Calcium n Calcium t} in Calcium 20 MG 20 MG 20 MG predniSONE predniSONE No 2{table QD predniSONE 20 MG 20 MG t} 20 MG Cyclobenzap Cyclobenzap No Cyclobenza rine HCl 10 rine HCl 10 sarita HCl MG MG 10 MG Lunesta 2 Lunesta 2 No 1{table QD Lunesta 2 MG MG t_immed MG iately_ before_ bedtime } Lisinopril Lisinopril No 1{table QD Lisinopril 40 MG 40 MG t} 40 MG Lexapro 10 Lexapro 10 No 1{table QD Lexapro 10 MG MG t} MG Metoprolol Metoprolol No 1{table QD Metoprolol Succinate Succinate t} Succinate ER 25 MG ER 25 MG ER 25 MG guaiFENesin guaiFENesin No 1{table BID guaiFENesi ER 600 MG ER 600 MG t_as_ne n ER 600 eded} MG Pantoprazol Pantoprazol No 1{table QD Pantoprazo e Sodium 40 e Sodium 40 t} le Sodium MG MG 40 MG metFORMIN metFORMIN No BID metFORMIN HCl ER 750 HCl ER 750 HCl ER 750 MG MG MG glipiZIDE glipiZIDE No 1{table QD glipiZIDE XL 10 MG XL 10 MG t_with_ XL [address]} Gabapentin Gabapentin No 1{capsu BID Gabapentin 300 MG 300 MG le} 300 MG ALPRAZolam ALPRAZolam No 1{table QD ALPRAZolam 1 MG 1 MG t} 1 MG Victoza 18 Victoza 18 No Victoza 18 MG/3ML MG/3ML MG/3ML Cyclobenzap Cyclobenzap No 1{table QD Cyclobenza rine HCl 10 rine HCl 10 t_at_be sarita HCl MG MG dtime_a 10 MG s_neede d} Jardiance Jardiance No 1{table QD Jardiance 25 MG 25 MG t} 25 MG Loratadine Loratadine No 1{table QD Loratadine 10 MG 10 MG t} 10 MG traZODone traZODone No 1{table QD traZODone HCl 100 MG HCl 100 MG t_at_be HCl 100 MG dtime} Allopurinol Allopurinol No 1{table QD Allopurino 300 MG 300 MG t} l 300 MG Aspir-Low Aspir-Low No 1{table QD Aspir-Low 81 MG 81 MG t} 81 MG Victoza 18 Victoza 18 No Victoza 18 MG/3ML MG/3ML MG/3ML predniSONE predniSONE No 2{table QD predniSONE 20 MG 20 MG t} 20 MG Allopurinol Allopurinol No 1{table QD Allopurino 300 MG 300 MG t} l 300 MG Lexapro 10 Lexapro 10 No 1{table QD Lexapro 10 MG MG t} MG Jardiance Jardiance No 1{table QD Jardiance 25 MG 25 MG t} 25 MG Cyclobenzap Cyclobenzap No 1{table QD Cyclobenza rine HCl 10 rine HCl 10 t_at_be sarita HCl MG MG dtime_a 10 MG s_neede d} Cyclobenzap Cyclobenzap No Cyclobenza rine HCl 10 rine HCl 10 sarita HCl MG MG 10 MG ALPRAZolam ALPRAZolam No 1{table QD ALPRAZolam 1 MG 1 MG t} 1 MG traZODone traZODone No 1{table QD traZODone HCl 100 MG HCl 100 MG t_at_be HCl 100 MG dtime} Lunesta 2 Lunesta 2 No 1{table QD Lunesta 2 MG MG t_immed MG iately_ before_ bedtime } Aspir-Low Aspir-Low No 1{table QD Aspir-Low 81 MG 81 MG t} 81 MG Metoprolol Metoprolol No 1{table QD Metoprolol Succinate Succinate t} Succinate ER 25 MG ER 25 MG ER 25 MG Tradjenta 5 Tradjenta 5 No 1{table QD Tradjenta MG MG t} 5 MG metFORMIN metFORMIN No BID metFORMIN HCl ER 750 HCl ER 750 HCl ER 750 MG MG MG Lisinopril Lisinopril No 1{table QD Lisinopril 40 MG 40 MG t} 40 MG guaiFENesin guaiFENesin No 1{table BID guaiFENesi ER 600 MG ER 600 MG t_as_ne n ER 600 eded} MG Gabapentin Gabapentin No 1{capsu BID Gabapentin 300 MG 300 MG le} 300 MG Pantoprazol Pantoprazol No 1{table QD Pantoprazo e Sodium 40 e Sodium 40 t} le Sodium MG MG 40 MG glipiZIDE glipiZIDE No 1{table QD glipiZIDE XL 10 MG XL 10 MG t_with_ XL [address]} Rosuvastati Rosuvastati No 1{table QD Rosuvastat n Calcium n Calcium t} in Calcium 20 MG 20 MG 20 MG Loratadine Loratadine No 1{table QD Loratadine 10 MG 10 MG t} 10 MG Metoprolol Metoprolol No 1{table QD Metoprolol Succinate Succinate t} Succinate ER 25 MG ER 25 MG ER 25 MG Jardiance Jardiance No 1{table QD Jardiance 25 MG 25 MG t} 25 MG Cyclobenzap Cyclobenzap No Cyclobenza rine HCl 10 rine HCl 10 sarita HCl MG MG 10 MG glipiZIDE glipiZIDE No 1{table QD glipiZIDE XL 10 MG XL 10 MG t_with_ XL [address]} Loratadine Loratadine No 1{table QD Loratadine 10 MG 10 MG t} 10 MG Pantoprazol Pantoprazol No 1{table QD Pantoprazo e Sodium 40 e Sodium 40 t} le Sodium MG MG 40 MG metFORMIN metFORMIN No BID metFORMIN HCl ER 750 HCl ER 750 HCl ER 750 MG MG MG Lexapro 10 Lexapro 10 No 1{table QD Lexapro 10 MG MG t} MG predniSONE predniSONE No 2{table QD predniSONE 20 MG 20 MG t} 20 MG guaiFENesin guaiFENesin No 1{table BID guaiFENesi ER 600 MG ER 600 MG t_as_ne n ER 600 eded} MG Lisinopril Lisinopril No 1{table QD Lisinopril 40 MG 40 MG t} 40 MG ALPRAZolam ALPRAZolam No 1{table QD ALPRAZolam 1 MG 1 MG t} 1 MG Rosuvastati Rosuvastati No 1{table QD Rosuvastat n Calcium n Calcium t} in Calcium 20 MG 20 MG 20 MG Gabapentin Gabapentin No 1{capsu BID Gabapentin 300 MG 300 MG le} 300 MG Tradjenta 5 Tradjenta 5 No 1{table QD Tradjenta MG MG t} 5 MG Aspir-Low Aspir-Low No 1{table QD Aspir-Low 81 MG 81 MG t} 81 MG Victoza 18 Victoza 18 No Victoza 18 MG/3ML MG/3ML MG/3ML traZODone traZODone No 1{table QD traZODone HCl 100 MG HCl 100 MG t_at_be HCl 100 MG dtime} Lunesta 2 Lunesta 2 No 1{table QD Lunesta 2 MG MG t_immed MG iately_ before_ bedtime } Cyclobenzap Cyclobenzap No 1{table QD Cyclobenza rine HCl 10 rine HCl 10 t_at_be sarita HCl MG MG dtime_a 10 MG s_neede d} Allopurinol Allopurinol No 1{table QD Allopurino 300 MG 300 MG t} l 300 MG Jardiance Jardiance No 1{table QD Jardiance 25 MG 25 MG t} 25 MG metFORMIN metFORMIN No BID metFORMIN HCl ER 750 HCl ER 750 HCl ER 750 MG MG MG Lexapro 10 Lexapro 10 No 1{table QD Lexapro 10 MG MG t} MG ALPRAZolam ALPRAZolam No 1{table QD ALPRAZolam 1 MG 1 MG t} 1 MG Cyclobenzap Cyclobenzap No Cyclobenza rine HCl 10 rine HCl 10 sarita HCl MG MG 10 MG Victoza 18 Victoza 18 No Victoza 18 MG/3ML MG/3ML MG/3ML Allopurinol Allopurinol No 1{table QD Allopurino 300 MG 300 MG t} l 300 MG Loratadine Loratadine No 1{table QD Loratadine 10 MG 10 MG t} 10 MG Aspir-Low Aspir-Low No 1{table QD Aspir-Low 81 MG 81 MG t} 81 MG Lunesta 2 Lunesta 2 No 1{table QD Lunesta 2 MG MG t_immed MG iately_ before_ bedtime } guaiFENesin guaiFENesin No 1{table BID guaiFENesi ER 600 MG ER 600 MG t_as_ne n ER 600 eded} MG traZODone traZODone No 1{table QD traZODone HCl 100 MG HCl 100 MG t_at_be HCl 100 MG dtime} Tradjenta 5 Tradjenta 5 No 1{table QD Tradjenta MG MG t} 5 MG glipiZIDE glipiZIDE No 1{table QD glipiZIDE XL 10 MG XL 10 MG t_with_ XL [address]} Rosuvastati Rosuvastati No 1{table QD Rosuvastat n Calcium n Calcium t} in Calcium 20 MG 20 MG 20 MG Pantoprazol Pantoprazol No 1{table QD Pantoprazo e Sodium 40 e Sodium 40 t} le Sodium MG MG 40 MG predniSONE predniSONE No 2{table QD predniSONE 20 MG 20 MG t} 20 MG Metoprolol Metoprolol No 1{table QD Metoprolol Succinate Succinate t} Succinate ER 25 MG ER 25 MG ER 25 MG Lisinopril Lisinopril No 1{table QD Lisinopril 40 MG 40 MG t} 40 MG Cyclobenzap Cyclobenzap No 1{table QD Cyclobenza rine HCl 10 rine HCl 10 t_at_be sarita HCl MG MG dtime_a 10 MG s_neede d} Gabapentin Gabapentin No 1{capsu BID Gabapentin 300 MG 300 MG le} 300 MG Jardiance Jardiance No 1{table QD Jardiance 25 MG 25 MG t} 25 MG metFORMIN metFORMIN No BID metFORMIN HCl ER 750 HCl ER 750 HCl ER 750 MG MG MG Lexapro 10 Lexapro 10 No 1{table QD Lexapro 10 MG MG t} MG ALPRAZolam ALPRAZolam No 1{table QD ALPRAZolam 1 MG 1 MG t} 1 MG Cyclobenzap Cyclobenzap No Cyclobenza rine HCl 10 rine HCl 10 sarita HCl MG MG 10 MG Victoza 18 Victoza 18 No Victoza 18 MG/3ML MG/3ML MG/3ML Allopurinol Allopurinol No 1{table QD Allopurino 300 MG 300 MG t} l 300 MG Aspir-Low Aspir-Low No 1{table QD Aspir-Low 81 MG 81 MG t} 81 MG Lunesta 2 Lunesta 2 No 1{table QD Lunesta 2 MG MG t_immed MG iately_ before_ bedtime } traZODone traZODone No 1{table QD traZODone HCl 100 MG HCl 100 MG t_at_be HCl 100 MG dtime} Tradjenta 5 Tradjenta 5 No 1{table QD Tradjenta MG MG t} 5 MG glipiZIDE glipiZIDE No 1{table QD glipiZIDE XL 10 MG XL 10 MG t_with_ XL [address]} guaiFENesin guaiFENesin No 1{table BID guaiFENesi ER 600 MG ER 600 MG t_as_ne n ER 600 eded} MG Rosuvastati Rosuvastati No 1{table QD Rosuvastat n Calcium n Calcium t} in Calcium 20 MG 20 MG 20 MG Pantoprazol Pantoprazol No 1{table QD Pantoprazo e Sodium 40 e Sodium 40 t} le Sodium MG MG 40 MG Loratadine Loratadine No 1{table QD Loratadine 10 MG 10 MG t} 10 MG Lisinopril Lisinopril No 1{table QD Lisinopril 40 MG 40 MG t} 40 MG predniSONE predniSONE No 2{table QD predniSONE 20 MG 20 MG t} 20 MG Metoprolol Metoprolol No 1{table QD Metoprolol Succinate Succinate t} Succinate ER 25 MG ER 25 MG ER 25 MG Gabapentin Gabapentin No 1{capsu BID Gabapentin 300 MG 300 MG le} 300 MG Jardiance Jardiance No 1{table QD Jardiance 25 MG 25 MG t} 25 MG metFORMIN metFORMIN No BID metFORMIN HCl ER 750 HCl ER 750 HCl ER 750 MG MG MG Lexapro 10 Lexapro 10 No 1{table QD Lexapro 10 MG MG t} MG ALPRAZolam ALPRAZolam No 1{table QD ALPRAZolam 1 MG 1 MG t} 1 MG Cyclobenzap Cyclobenzap No Cyclobenza rine HCl 10 rine HCl 10 sarita HCl MG MG 10 MG Victoza 18 Victoza 18 No Victoza 18 MG/3ML MG/3ML MG/3ML Allopurinol Allopurinol No 1{table QD Allopurino 300 MG 300 MG t} l 300 MG Aspir-Low Aspir-Low No 1{table QD Aspir-Low 81 MG 81 MG t} 81 MG Lunesta 2 Lunesta 2 No 1{table QD Lunesta 2 MG MG t_immed MG iately_ before_ bedtime } traZODone traZODone No 1{table QD traZODone HCl 100 MG HCl 100 MG t_at_be HCl 100 MG dtime} Tradjenta 5 Tradjenta 5 No 1{table QD Tradjenta MG MG t} 5 MG glipiZIDE glipiZIDE No 1{table QD glipiZIDE XL 10 MG XL 10 MG t_with_ XL [address]} guaiFENesin guaiFENesin No 1{table BID guaiFENesi ER 600 MG ER 600 MG t_as_ne n ER 600 eded} MG Rosuvastati Rosuvastati No 1{table QD Rosuvastat n Calcium n Calcium t} in Calcium 20 MG 20 MG 20 MG Pantoprazol Pantoprazol No 1{table QD Pantoprazo e Sodium 40 e Sodium 40 t} le Sodium MG MG 40 MG Loratadine Loratadine No 1{table QD Loratadine 10 MG 10 MG t} 10 MG Lisinopril Lisinopril No 1{table QD Lisinopril 40 MG 40 MG t} 40 MG predniSONE predniSONE No 2{table QD predniSONE 20 MG 20 MG t} 20 MG Metoprolol Metoprolol No 1{table QD Metoprolol Succinate Succinate t} Succinate ER 25 MG ER 25 MG ER 25 MG Gabapentin Gabapentin No 1{capsu BID Gabapentin 300 MG 300 MG le} 300 MG Jardiance Jardiance No 1{table QD Jardiance 25 MG 25 MG t} 25 MG glipiZIDE glipiZIDE No 1{table QD glipiZIDE XL 10 MG XL 10 MG t_with_ XL [address]} Rosuvastati Rosuvastati No 1{table QD Rosuvastat n Calcium n Calcium t} in Calcium 20 MG 20 MG 20 MG Lunesta 2 Lunesta 2 No 1{table QD Lunesta 2 MG MG t_immed MG iately_ before_ bedtime } ALPRAZolam ALPRAZolam No 1{table QD ALPRAZolam 1 MG 1 MG t} 1 MG metFORMIN metFORMIN No BID metFORMIN HCl ER 750 HCl ER 750 HCl ER 750 MG MG MG Lexapro 10 Lexapro 10 No 1{table QD Lexapro 10 MG MG t} MG Cyclobenzap Cyclobenzap No Cyclobenza rine HCl 10 rine HCl 10 sarita HCl MG MG 10 MG Allopurinol Allopurinol No 1{table QD Allopurino 300 MG 300 MG t} l 300 MG Metoprolol Metoprolol No 1{table QD Metoprolol Succinate Succinate t} Succinate ER 25 MG ER 25 MG ER 25 MG traZODone traZODone No 1{table QD traZODone HCl 100 MG HCl 100 MG t_at_be HCl 100 MG dtime} Tradjenta 5 Tradjenta 5 No 1{table QD Tradjenta MG MG t} 5 MG Gabapentin Gabapentin No 1{capsu BID Gabapentin 300 MG 300 MG le} 300 MG Victoza 18 Victoza 18 No Victoza 18 MG/3ML MG/3ML MG/3ML Aspir-Low Aspir-Low No 1{table QD Aspir-Low 81 MG 81 MG t} 81 MG Pantoprazol Pantoprazol No 1{table QD Pantoprazo e Sodium 40 e Sodium 40 t} le Sodium MG MG 40 MG Lisinopril Lisinopril No 1{table QD Lisinopril 40 MG 40 MG t} 40 MG guaiFENesin guaiFENesin No 1{table BID guaiFENesi ER 600 MG ER 600 MG t_as_ne n ER 600 eded} MG Loratadine Loratadine No 1{table QD Loratadine 10 MG 10 MG t} 10 MG predniSONE predniSONE No 2{table QD predniSONE 20 MG 20 MG t} 20 MG Jardiance Jardiance No 1{table QD Jardiance 25 MG 25 MG t} 25 MG glipiZIDE glipiZIDE No 1{table QD glipiZIDE XL 10 MG XL 10 MG t_with_ XL [address]} Rosuvastati Rosuvastati No 1{table QD Rosuvastat n Calcium n Calcium t} in Calcium 20 MG 20 MG 20 MG Lunesta 2 Lunesta 2 No 1{table QD Lunesta 2 MG MG t_immed MG iately_ before_ bedtime } ALPRAZolam ALPRAZolam No 1{table QD ALPRAZolam 1 MG 1 MG t} 1 MG metFORMIN metFORMIN No BID metFORMIN HCl ER 750 HCl ER 750 HCl ER 750 MG MG MG Lexapro 10 Lexapro 10 No 1{table QD Lexapro 10 MG MG t} MG Cyclobenzap Cyclobenzap No Cyclobenza rine HCl 10 rine HCl 10 sarita HCl MG MG 10 MG Allopurinol Allopurinol No 1{table QD Allopurino 300 MG 300 MG t} l 300 MG Metoprolol Metoprolol No 1{table QD Metoprolol Succinate Succinate t} Succinate ER 25 MG ER 25 MG ER 25 MG traZODone traZODone No 1{table QD traZODone HCl 100 MG HCl 100 MG t_at_be HCl 100 MG dtime} Tradjenta 5 Tradjenta 5 No 1{table QD Tradjenta MG MG t} 5 MG Gabapentin Gabapentin No 1{capsu BID Gabapentin 300 MG 300 MG le} 300 MG Victoza 18 Victoza 18 No Victoza 18 MG/3ML MG/3ML MG/3ML Aspir-Low Aspir-Low No 1{table QD Aspir-Low 81 MG 81 MG t} 81 MG Pantoprazol Pantoprazol No 1{table QD Pantoprazo e Sodium 40 e Sodium 40 t} le Sodium MG MG 40 MG Lisinopril Lisinopril No 1{table QD Lisinopril 40 MG 40 MG t} 40 MG guaiFENesin guaiFENesin No 1{table BID guaiFENesi ER 600 MG ER 600 MG t_as_ne n ER 600 eded} MG Loratadine Loratadine No 1{table QD Loratadine 10 MG 10 MG t} 10 MG predniSONE predniSONE No 2{table QD predniSONE 20 MG 20 MG t} 20 MG Jardiance Jardiance No 1{table QD Jardiance 25 MG 25 MG t} 25 MG glipiZIDE glipiZIDE No 1{table QD glipiZIDE XL 10 MG XL 10 MG t_with_ XL [address]} Rosuvastati Rosuvastati No 1{table QD Rosuvastat n Calcium n Calcium t} in Calcium 20 MG 20 MG 20 MG Lunesta 2 Lunesta 2 No 1{table QD Lunesta 2 MG MG t_immed MG iately_ before_ bedtime } ALPRAZolam ALPRAZolam No 1{table QD ALPRAZolam 1 MG 1 MG t} 1 MG metFORMIN metFORMIN No BID metFORMIN HCl ER 750 HCl ER 750 HCl ER 750 MG MG MG Lexapro 10 Lexapro 10 No 1{table QD Lexapro 10 MG MG t} MG Cyclobenzap Cyclobenzap No Cyclobenza rine HCl 10 rine HCl 10 sarita HCl MG MG 10 MG Allopurinol Allopurinol No 1{table QD Allopurino 300 MG 300 MG t} l 300 MG Metoprolol Metoprolol No 1{table QD Metoprolol Succinate Succinate t} Succinate ER 25 MG ER 25 MG ER 25 MG traZODone traZODone No 1{table QD traZODone HCl 100 MG HCl 100 MG t_at_be HCl 100 MG dtime} Tradjenta 5 Tradjenta 5 No 1{table QD Tradjenta MG MG t} 5 MG Gabapentin Gabapentin No 1{capsu BID Gabapentin 300 MG 300 MG le} 300 MG Victoza 18 Victoza 18 No Victoza 18 MG/3ML MG/3ML MG/3ML Aspir-Low Aspir-Low No 1{table QD Aspir-Low 81 MG 81 MG t} 81 MG Pantoprazol Pantoprazol No 1{table QD Pantoprazo e Sodium 40 e Sodium 40 t} le Sodium MG MG 40 MG Metoprolol Metoprolol No 1{table QD Metoprolol Succinate Succinate t} Succinate ER 25 MG ER 25 MG ER 25 MG Lisinopril Lisinopril No 1{table QD Lisinopril 40 MG 40 MG t} 40 MG guaiFENesin guaiFENesin No 1{table BID guaiFENesi ER 600 MG ER 600 MG t_as_ne n ER 600 eded} MG Loratadine Loratadine No 1{table QD Loratadine 10 MG 10 MG t} 10 MG predniSONE predniSONE No 2{table QD predniSONE 20 MG 20 MG t} 20 MG Cyclobenzap Cyclobenzap No 1{table QD Cyclobenza rine HCl 10 rine HCl 10 t_at_be sarita HCl MG MG dtime_a 10 MG s_neede d} Jardiance Jardiance No 1{table QD Jardiance 25 MG 25 MG t} 25 MG glipiZIDE glipiZIDE No 1{table QD glipiZIDE XL 10 MG XL 10 MG t_with_ XL [address]} Rosuvastati Rosuvastati No 1{table QD Rosuvastat n Calcium n Calcium t} in Calcium 20 MG 20 MG 20 MG Lunesta 2 Lunesta 2 No 1{table QD Lunesta 2 MG MG t_immed MG iately_ before_ bedtime } ALPRAZolam ALPRAZolam No 1{table QD ALPRAZolam 1 MG 1 MG t} 1 MG Cyclobenzap Cyclobenzap No 1{table QD Cyclobenza rine HCl 10 rine HCl 10 t_at_be sarita HCl MG MG dtime_a 10 MG s_neede d} metFORMIN metFORMIN No BID metFORMIN HCl ER 750 HCl ER 750 HCl ER 750 MG MG MG Lexapro 10 Lexapro 10 No 1{table QD Lexapro 10 MG MG t} MG Cyclobenzap Cyclobenzap No Cyclobenza rine HCl 10 rine HCl 10 sarita HCl MG MG 10 MG Allopurinol Allopurinol No 1{table QD Allopurino 300 MG 300 MG t} l 300 MG Metoprolol Metoprolol No 1{table QD Metoprolol Succinate Succinate t} Succinate ER 25 MG ER 25 MG ER 25 MG traZODone traZODone No 1{table QD traZODone HCl 100 MG HCl 100 MG t_at_be HCl 100 MG dtime} Tradjenta 5 Tradjenta 5 No 1{table QD Tradjenta MG MG t} 5 MG Gabapentin Gabapentin No 1{capsu BID Gabapentin 300 MG 300 MG le} 300 MG Gabapentin Gabapentin No Gabapentin 300 MG 300 MG 300 MG Victoza 18 Victoza 18 No Victoza 18 MG/3ML MG/3ML MG/3ML Aspir-Low Aspir-Low No 1{table QD Aspir-Low 81 MG 81 MG t} 81 MG Pantoprazol Pantoprazol No 1{table QD Pantoprazo e Sodium 40 e Sodium 40 t} le Sodium MG MG 40 MG Lisinopril Lisinopril No 1{table QD Lisinopril 40 MG 40 MG t} 40 MG guaiFENesin guaiFENesin No 1{table BID guaiFENesi ER 600 MG ER 600 MG t_as_ne n ER 600 eded} MG Loratadine Loratadine No 1{table QD Loratadine 10 MG 10 MG t} 10 MG predniSONE predniSONE No 2{table QD predniSONE 20 MG 20 MG t} 20 MG FreeStyle FreeStyle No FreeStyle Ted 14 Ted 14 Ted 14 Day [place] Day [place] Day [place] - - - FreeStyle FreeStyle No FreeStyle Ted 14 Ted 14 Ted 14 Day Sensor Day Sensor Day Sensor - - - metFORMIN metFORMIN No BID metFORMIN HCl ER 750 HCl ER 750 HCl ER 750 MG MG MG Jardiance Jardiance No 1{table QD Jardiance 25 MG 25 MG t} 25 MG glipiZIDE glipiZIDE No 1{table QD glipiZIDE XL 10 MG XL 10 MG t_with_ XL [address]} Lexapro 10 Lexapro 10 No 1{table QD Lexapro 10 MG MG t} MG Cyclobenzap Cyclobenzap No Cyclobenza rine HCl 10 rine HCl 10 sarita HCl MG MG 10 MG ALPRAZolam ALPRAZolam No 1{table QD ALPRAZolam 1 MG 1 MG t} 1 MG Victoza 18 Victoza 18 No Victoza 18 MG/3ML MG/3ML MG/3ML Gabapentin Gabapentin No 1{capsu BID Gabapentin 300 MG 300 MG le} 300 MG metFORMIN metFORMIN No metFORMIN HCl ER 750 HCl ER 750 HCl ER 750 MG MG MG Metoprolol Metoprolol No 1{table QD Metoprolol Succinate Succinate t} Succinate ER 25 MG ER 25 MG ER 25 MG Aspir-Low Aspir-Low No 1{table QD Aspir-Low 81 MG 81 MG t} 81 MG Pantoprazol Pantoprazol No 1{table QD Pantoprazo e Sodium 40 e Sodium 40 t} le Sodium MG MG 40 MG traZODone traZODone No 1{table QD traZODone HCl 100 MG HCl 100 MG t_at_be HCl 100 MG dtime} Tradjenta 5 Tradjenta 5 No 1{table QD Tradjenta MG MG t} 5 MG Lunesta 2 Lunesta 2 No 1{table QD Lunesta 2 MG MG t_immed MG iately_ before_ bedtime } Rosuvastati Rosuvastati No 1{table QD Rosuvastat n Calcium n Calcium t} in Calcium 20 MG 20 MG 20 MG metFORMIN metFORMIN No BID metFORMIN HCl ER 750 HCl ER 750 HCl ER 750 MG MG MG Allopurinol Allopurinol No 1{table QD Allopurino 300 MG 300 MG t} l 300 MG Lisinopril Lisinopril No 1{table QD Lisinopril 40 MG 40 MG t} 40 MG guaiFENesin guaiFENesin No 1{table BID guaiFENesi ER 600 MG ER 600 MG t_as_ne n ER 600 eded} MG Loratadine Loratadine No 1{table QD Loratadine 10 MG 10 MG t} 10 MG predniSONE predniSONE No 2{table QD predniSONE 20 MG 20 MG t} 20 MG Jardiance Jardiance No 1{table QD Jardiance 25 MG 25 MG t} 25 MG glipiZIDE glipiZIDE No 1{table QD glipiZIDE XL 10 MG XL 10 MG t_with_ XL [address]} glipiZIDE glipiZIDE No glipiZIDE ER 10 MG ER 10 MG ER 10 MG ALPRAZolam ALPRAZolam No 1{table QD ALPRAZolam 2 MG 2 MG t} 2 MG Acetaminoph Acetaminoph No 1{table Acetaminop en-Codeine en-Codeine t_as_ne hen-Codein #3 300-30 #3 300-30 eded} e #3 MG MG 300-30 MG Allopurinol Allopurinol No Allopurino 300 MG 300 MG l 300 MG Ibuprofen Ibuprofen No QID Ibuprofen 400 MG 400 MG 400 MG Allopurinol Allopurinol No 1{table QD Allopurino 300 MG 300 MG t} l 300 MG Rosuvastati Rosuvastati No 1{table QD Rosuvastat n Calcium n Calcium t} in Calcium 20 MG 20 MG 20 MG Lisinopril Lisinopril No Lisinopril 40 MG 40 MG 40 MG Aspir-Low Aspir-Low No 1{table QD Aspir-Low 81 MG 81 MG t} 81 MG Metoprolol Metoprolol No 1{table QD Metoprolol Succinate Succinate t} Succinate ER 25 MG ER 25 MG ER 25 MG Cyclobenzap Cyclobenzap No 1{table QD Cyclobenza rine HCl 10 rine HCl 10 t_at_be sarita HCl MG MG dtime_a 10 MG s_neede d} Cyclobenzap Cyclobenzap No 1{table QD Cyclobenza rine HCl 10 rine HCl 10 t_at_be sarita HCl MG MG dtime_a 10 MG s_neede d} Gabapentin Gabapentin No Gabapentin 300 MG 300 MG 300 MG FreeStyle FreeStyle No FreeStyle Ted 14 Ted 14 Ted 14 Day [place] Day [place] Day [place] - - - FreeStyle FreeStyle No FreeStyle Ted 14 Ted 14 Ted 14 Day Sensor Day Sensor Day Sensor - - - metFORMIN metFORMIN No metFORMIN HCl ER 750 HCl ER 750 HCl ER 750 MG MG MG metFORMIN metFORMIN No BID metFORMIN HCl ER 750 HCl ER 750 HCl ER 750 MG MG MG Jardiance Jardiance No 1{table QD Jardiance 25 MG 25 MG t} 25 MG glipiZIDE glipiZIDE No 1{table QD glipiZIDE XL 10 MG XL 10 MG t_with_ XL [address]} glipiZIDE glipiZIDE No glipiZIDE ER 10 MG ER 10 MG ER 10 MG ALPRAZolam ALPRAZolam No 1{table QD ALPRAZolam 2 MG 2 MG t} 2 MG Acetaminoph Acetaminoph No 1{table Acetaminop en-Codeine en-Codeine t_as_ne hen-Codein #3 300-30 #3 300-30 eded} e #3 MG MG 300-30 MG Allopurinol Allopurinol No Allopurino 300 MG 300 MG l 300 MG Ibuprofen Ibuprofen No QID Ibuprofen 400 MG 400 MG 400 MG Allopurinol Allopurinol No 1{table QD Allopurino 300 MG 300 MG t} l 300 MG Rosuvastati Rosuvastati No 1{table QD Rosuvastat n Calcium n Calcium t} in Calcium 20 MG 20 MG 20 MG Lisinopril Lisinopril No Lisinopril 40 MG 40 MG 40 MG Aspir-Low Aspir-Low No 1{table QD Aspir-Low 81 MG 81 MG t} 81 MG FreeStyle FreeStyle No FreeStyle Ted 14 Ted 14 Ted 14 Day Sensor Day Sensor Day Sensor - - - Allopurinol Allopurinol No Allopurino 300 MG 300 MG l 300 MG Cyclobenzap Cyclobenzap No 1{table QD Cyclobenza rine HCl 10 rine HCl 10 t_at_be sarita HCl MG MG dtime_a 10 MG s_neede d} glipiZIDE glipiZIDE No glipiZIDE ER 10 MG ER 10 MG ER 10 MG Cyclobenzap Cyclobenzap No 1{table QD Cyclobenza rine HCl 10 rine HCl 10 t_at_be sarita HCl MG MG dtime_a 10 MG s_neede d} Lisinopril Lisinopril No Lisinopril 40 MG 40 MG 40 MG ALPRAZolam ALPRAZolam No 1{table QD ALPRAZolam 2 MG 2 MG t} 2 MG Allopurinol Allopurinol No 1{table QD Allopurino 300 MG 300 MG t} l 300 MG Metoprolol Metoprolol No 1{table QD Metoprolol Succinate Succinate t} Succinate ER 25 MG ER 25 MG ER 25 MG Jardiance Jardiance No 1{table QD Jardiance 25 MG 25 MG t} 25 MG FreeStyle FreeStyle No FreeStyle Ted 14 Ted 14 Tde 14 Day [place] Day [place] Day [place] - - - Rosuvastati Rosuvastati No 1{table QD Rosuvastat n Calcium n Calcium t} in Calcium 20 MG 20 MG 20 MG glipiZIDE glipiZIDE No 1{table QD glipiZIDE XL 10 MG XL 10 MG t_with_ XL [address]} Ibuprofen Ibuprofen No QID Ibuprofen 400 MG 400 MG 400 MG Gabapentin Gabapentin No Gabapentin 300 MG 300 MG 300 MG Aspir-Low Aspir-Low No 1{table QD Aspir-Low 81 MG 81 MG t} 81 MG metFORMIN metFORMIN No metFORMIN HCl ER 750 HCl ER 750 HCl ER 750 MG MG MG metFORMIN metFORMIN No BID metFORMIN HCl ER 750 HCl ER 750 HCl ER 750 MG MG MG Allopurinol Allopurinol No Allopurino 300 MG 300 MG l 300 MG glipiZIDE glipiZIDE No glipiZIDE ER 10 MG ER 10 MG ER 10 MG Gabapentin Gabapentin No Gabapentin 300 MG 300 MG 300 MG Jardiance Jardiance No 1{table QD Jardiance 25 MG 25 MG t} 25 MG Lisinopril Lisinopril No Lisinopril 40 MG 40 MG 40 MG metFORMIN metFORMIN No metFORMIN HCl ER 750 HCl ER 750 HCl ER 750 MG MG MG FreeStyle FreeStyle No FreeStyle Ted 14 Ted 14 Ted 14 Day Sensor Day Sensor Day Sensor - - - Allopurinol Allopurinol No 1{table QD Allopurino 300 MG 300 MG t} l 300 MG Cyclobenzap Cyclobenzap No 1{table QD Cyclobenza rine HCl 10 rine HCl 10 t_at_be sarita HCl MG MG dtime_a 10 MG s_neede d} ALPRAZolam ALPRAZolam No 1{table QD ALPRAZolam 2 MG 2 MG t} 2 MG glipiZIDE glipiZIDE No 1{table QD glipiZIDE XL 10 MG XL 10 MG t_with_ XL [address]} Ibuprofen Ibuprofen No QID Ibuprofen 400 MG 400 MG 400 MG Rosuvastati Rosuvastati No Rosuvastat n Calcium n Calcium in Calcium 20 MG 20 MG 20 MG FreeStyle FreeStyle No FreeStyle Ted 14 Ted 14 Ted 14 Day [place] Day [place] Day [place] - - - metFORMIN metFORMIN No BID metFORMIN HCl ER 750 HCl ER 750 HCl ER 750 MG MG MG Metoprolol Metoprolol No Metoprolol Succinate Succinate Succinate ER 25 MG ER 25 MG ER 25 MG Aspir-Low Aspir-Low No 1{table QD Aspir-Low 81 MG 81 MG t} 81 MG Cyclobenzap Cyclobenzap No 1{table QD Cyclobenza rine HCl 10 rine HCl 10 t_at_be sarita HCl MG MG dtime_a 10 MG s_neede d} Allopurinol Allopurinol No Allopurino 300 MG 300 MG l 300 MG Aspir-Low Aspir-Low No 1{table QD Aspir-Low 81 MG 81 MG t} 81 MG Cyclobenzap Cyclobenzap No 1{table QD Cyclobenza rine HCl 10 rine HCl 10 t_at_be sarita HCl MG MG dtime_a 10 MG s_neede d} Ibuprofen Ibuprofen No QID Ibuprofen 400 MG 400 MG 400 MG Cyclobenzap Cyclobenzap No 1{table QD Cyclobenza rine HCl 10 rine HCl 10 t_at_be sarita HCl MG MG dtime_a 10 MG s_neede d} FreeStyle FreeStyle No FreeStyle Ted 14 Ted 14 Ted 14 Day Sensor Day Sensor Day Sensor - - - FreeStyle FreeStyle No FreeStyle Ted 14 Ted 14 Ted 14 Day [place] Day [place] Day [place] - - - Rosuvastati Rosuvastati No Rosuvastat n Calcium n Calcium in Calcium 20 MG 20 MG 20 MG metFORMIN metFORMIN No BID metFORMIN HCl ER 750 HCl ER 750 HCl ER 750 MG MG MG glipiZIDE glipiZIDE No 1{table QD glipiZIDE XL 10 MG XL 10 MG t_with_ XL [address]} ALPRAZolam ALPRAZolam No 1{table QD ALPRAZolam 2 MG 2 MG t} 2 MG Lisinopril Lisinopril No Lisinopril 40 MG 40 MG 40 MG Jardiance Jardiance No 1{table QD Jardiance 25 MG 25 MG t} 25 MG Allopurinol Allopurinol No 1{table QD Allopurino 300 MG 300 MG t} l 300 MG Metoprolol Metoprolol No Metoprolol Succinate Succinate Succinate ER 25 MG ER 25 MG ER 25 MG Gabapentin Gabapentin No Gabapentin 300 MG 300 MG 300 MG metFORMIN metFORMIN No metFORMIN HCl ER 750 HCl ER 750 HCl ER 750 MG MG MG glipiZIDE glipiZIDE No glipiZIDE ER 10 MG ER 10 MG ER 10 MG Cyclobenzap Cyclobenzap No 1{table QD Cyclobenza rine HCl 10 rine HCl 10 t_at_be sarita HCl MG MG dtime_a 10 MG s_neede d} Allopurinol Allopurinol No Allopurino 300 MG 300 MG l 300 MG FreeStyle FreeStyle No FreeStyle Ted 14 Ted 14 Ted 14 Day [place] Day Lind[place] Day [place] - - - Lisinopril Lisinopril No Lisinopril 40 MG 40 MG 40 MG Cyclobenzap Cyclobenzap No 1{table QD Cyclobenza rine HCl 10 rine HCl 10 t_at_be sarita HCl MG MG dtime_a 10 MG s_neede d} FreeStyle FreeStyle No FreeStyle Ted 14 Ted 14 Ted 14 Day Sensor Day Sensor Day Sensor - - - metFORMIN metFORMIN No metFORMIN HCl ER 750 HCl ER 750 HCl ER 750 MG MG MG Rosuvastati Rosuvastati No Rosuvastat n Calcium n Calcium in Calcium 20 MG 20 MG 20 MG metFORMIN metFORMIN No BID metFORMIN HCl ER 750 HCl ER 750 HCl ER 750 MG MG MG glipiZIDE glipiZIDE No 1{table QD glipiZIDE XL 10 MG XL 10 MG t_with_ XL [address]} Gabapentin Gabapentin No Gabapentin 300 MG 300 MG 300 MG ALPRAZolam ALPRAZolam No 1{table QD ALPRAZolam 2 MG 2 MG t} 2 MG Jardiance Jardiance No 1{table QD Jardiance 25 MG 25 MG t} 25 MG glipiZIDE glipiZIDE No glipiZIDE ER 10 MG ER 10 MG ER 10 MG Ibuprofen Ibuprofen No QID Ibuprofen 400 MG 400 MG 400 MG Allopurinol Allopurinol No 1{table QD Allopurino 300 MG 300 MG t} l 300 MG Metoprolol Metoprolol No Metoprolol Succinate Succinate Succinate ER 25 MG ER 25 MG ER 25 MG Aspir-Low Aspir-Low No 1{table QD Aspir-Low 81 MG 81 MG t} 81 MG Cyclobenzap Cyclobenzap No 1{table QD Cyclobenza rine HCl 10 rine HCl 10 t_at_be sarita HCl MG MG dtime_a 10 MG s_neede d} Cyclobenzap Cyclobenzap No 1{table QD Cyclobenza rine HCl 10 rine HCl 10 t_at_be sarita HCl MG MG dtime_a 10 MG s_neede d} Allopurinol Allopurinol No Allopurino 300 MG 300 MG l 300 MG Lisinopril Lisinopril No Lisinopril 40 MG 40 MG 40 MG Aspir-Low Aspir-Low No 1{table QD Aspir-Low 81 MG 81 MG t} 81 MG metFORMIN metFORMIN No metFORMIN HCl ER 750 HCl ER 750 HCl ER 750 MG MG MG Allopurinol Allopurinol No 1{table QD Allopurino 300 MG 300 MG t} l 300 MG Metoprolol Metoprolol No Metoprolol Succinate Succinate Succinate ER 25 MG ER 25 MG ER 25 MG Rosuvastati Rosuvastati No Rosuvastat n Calcium n Calcium in Calcium 20 MG 20 MG 20 MG Jardiance Jardiance No 1{table QD Jardiance 25 MG 25 MG t} 25 MG ALPRAZolam ALPRAZolam No 1{table QD ALPRAZolam 2 MG 2 MG t} 2 MG FreeStyle FreeStyle No FreeStyle Ted 14 Ted 14 Ted 14 Day Sensor Day Sensor Day Sensor - - - Ibuprofen Ibuprofen No QID Ibuprofen 400 MG 400 MG 400 MG metFORMIN metFORMIN No BID metFORMIN HCl ER 750 HCl ER 750 HCl ER 750 MG MG MG glipiZIDE glipiZIDE No glipiZIDE ER 10 MG ER 10 MG ER 10 MG glipiZIDE glipiZIDE No 1{table QD glipiZIDE XL 10 MG XL 10 MG t_with_ XL [address]} Gabapentin Gabapentin No Gabapentin 300 MG 300 MG 300 MG FreeStyle FreeStyle No FreeStyle Ted 14 Ted 14 Ted 14 Day [place] Day [place] Day [place] - - - Aspir-Low Aspir-Low No 1{table QD Aspir-Low 81 MG 81 MG t} 81 MG Cyclobenzap Cyclobenzap No 1{table QD Cyclobenza rine HCl 10 rine HCl 10 t_at_be sarita HCl MG MG dtime_a 10 MG s_neede d} Ibuprofen Ibuprofen No QID Ibuprofen 400 MG 400 MG 400 MG Allopurinol Allopurinol No Allopurino 300 MG 300 MG l 300 MG Allopurinol Allopurinol No 1{table QD Allopurino 300 MG 300 MG t} l 300 MG glipiZIDE glipiZIDE No 1{table QD glipiZIDE XL 10 MG XL 10 MG t_with_ XL [address]} Rosuvastati Rosuvastati No Rosuvastat n Calcium n Calcium in Calcium 20 MG 20 MG 20 MG FreeStyle FreeStyle No FreeStyle Ted 14 Ted 14 Ted 14 Day Sensor Day Sensor Day Sensor - - - Jardiance Jardiance No 1{table QD Jardiance 25 MG 25 MG t} 25 MG Lisinopril Lisinopril No Lisinopril 40 MG 40 MG 40 MG Metoprolol Metoprolol No Metoprolol Succinate Succinate Succinate ER 25 MG ER 25 MG ER 25 MG FreeStyle FreeStyle No FreeStyle Ted 14 Ted 14 Ted 14 Day [place] Day [place] Day [place] - - - Gabapentin Gabapentin No Gabapentin 300 MG 300 MG 300 MG metFORMIN metFORMIN No BID metFORMIN HCl ER 750 HCl ER 750 HCl ER 750 MG MG MG glipiZIDE glipiZIDE No glipiZIDE ER 10 MG ER 10 MG ER 10 MG metFORMIN metFORMIN No metFORMIN HCl ER 750 HCl ER 750 HCl ER 750 MG MG MG Cyclobenzap Cyclobenzap No 1{table QD Cyclobenza rine HCl 10 rine HCl 10 t_at_be sarita HCl MG MG dtime_a 10 MG s_neede d} Aspir-Low Aspir-Low No 1{table QD Aspir-Low 81 MG 81 MG t} 81 MG Cyclobenzap Cyclobenzap No 1{table QD Cyclobenza rine HCl 10 rine HCl 10 t_at_be sarita HCl MG MG dtime_a 10 MG s_neede d} Ibuprofen Ibuprofen No QID Ibuprofen 400 MG 400 MG 400 MG Allopurinol Allopurinol No Allopurino 300 MG 300 MG l 300 MG Allopurinol Allopurinol No 1{table QD Allopurino 300 MG 300 MG t} l 300 MG glipiZIDE glipiZIDE No 1{table QD glipiZIDE XL 10 MG XL 10 MG t_with_ XL [address]} Rosuvastati Rosuvastati No Rosuvastat n Calcium n Calcium in Calcium 20 MG 20 MG 20 MG FreeStyle FreeStyle No FreeStyle Ted 14 Ted 14 Ted 14 Day Sensor Day Sensor Day Sensor - - - Jardiance Jardiance No 1{table QD Jardiance 25 MG 25 MG t} 25 MG Lisinopril Lisinopril No Lisinopril 40 MG 40 MG 40 MG Metoprolol Metoprolol No Metoprolol Succinate Succinate Succinate ER 25 MG ER 25 MG ER 25 MG FreeStyle FreeStyle No FreeStyle Ted 14 Ted 14 Ted 14 Day [place] Day [place] Day [place] - - - Gabapentin Gabapentin No Gabapentin 300 MG 300 MG 300 MG metFORMIN metFORMIN No BID metFORMIN HCl ER 750 HCl ER 750 HCl ER 750 MG MG MG glipiZIDE glipiZIDE No glipiZIDE ER 10 MG ER 10 MG ER 10 MG metFORMIN metFORMIN No metFORMIN HCl ER 750 HCl ER 750 HCl ER 750 MG MG MG Cyclobenzap Cyclobenzap No 1{table QD Cyclobenza rine HCl 10 rine HCl 10 t_at_be sarita HCl MG MG dtime_a 10 MG s_neede d} Aspir-Low Aspir-Low No 1{table QD Aspir-Low 81 MG 81 MG t} 81 MG Cyclobenzap Cyclobenzap No 1{table QD Cyclobenza rine HCl 10 rine HCl 10 t_at_be sarita HCl MG MG dtime_a 10 MG s_neede d} Ibuprofen Ibuprofen No QID Ibuprofen 400 MG 400 MG 400 MG Allopurinol Allopurinol No Allopurino 300 MG 300 MG l 300 MG Allopurinol Allopurinol No 1{table QD Allopurino 300 MG 300 MG t} l 300 MG glipiZIDE glipiZIDE No 1{table QD glipiZIDE XL 10 MG XL 10 MG t_with_ XL [address]} Rosuvastati Rosuvastati No Rosuvastat n Calcium n Calcium in Calcium 20 MG 20 MG 20 MG FreeStyle FreeStyle No FreeStyle Ted 14 Ted 14 Ted 14 Day Sensor Day Sensor Day Sensor - - - Jardiance Jardiance No 1{table QD Jardiance 25 MG 25 MG t} 25 MG Lisinopril Lisinopril No Lisinopril 40 MG 40 MG 40 MG Metoprolol Metoprolol No Metoprolol Succinate Succinate Succinate ER 25 MG ER 25 MG ER 25 MG FreeStyle FreeStyle No FreeStyle Ted 14 Ted 14 Ted 14 Day [place] Day [place] Day [place] - - - Gabapentin Gabapentin No Gabapentin 300 MG 300 MG 300 MG metFORMIN metFORMIN No BID metFORMIN HCl ER 750 HCl ER 750 HCl ER 750 MG MG MG glipiZIDE glipiZIDE No glipiZIDE ER 10 MG ER 10 MG ER 10 MG metFORMIN metFORMIN No metFORMIN HCl ER 750 HCl ER 750 HCl ER 750 MG MG MG Cyclobenzap Cyclobenzap No 1{table QD Cyclobenza rine HCl 10 rine HCl 10 t_at_be sarita HCl MG MG dtime_a 10 MG s_neede d} Allopurinol Allopurinol No Allopurino 300 MG 300 MG l 300 MG Allopurinol Allopurinol No 1{table QD Allopurino 300 MG 300 MG t} l 300 MG Ibuprofen Ibuprofen No QID Ibuprofen 400 MG 400 MG 400 MG Gabapentin Gabapentin No Gabapentin 300 MG 300 MG 300 MG glipiZIDE glipiZIDE No glipiZIDE ER 10 MG ER 10 MG ER 10 MG glipiZIDE glipiZIDE No 1{table QD glipiZIDE XL 10 MG XL 10 MG t_with_ XL [address]} Rosuvastati Rosuvastati No Rosuvastat n Calcium n Calcium in Calcium 20 MG 20 MG 20 MG FreeStyle FreeStyle No FreeStyle Ted 14 Ted 14 Ted 14 Day Sensor Day Sensor Day Sensor - - - Cyclobenzap Cyclobenzap No Cyclobenza rine HCl 10 rine HCl 10 sarita HCl MG MG 10 MG Jardiance Jardiance No 1{table QD Jardiance 25 MG 25 MG t} 25 MG Metoprolol Metoprolol No Metoprolol Succinate Succinate Succinate ER 25 MG ER 25 MG ER 25 MG FreeStyle FreeStyle No FreeStyle Ted 14 Ted 14 Ted 14 Day [place] Day [place] Day [place] - - - Lisinopril Lisinopril No Lisinopril 40 MG 40 MG 40 MG metFORMIN metFORMIN No BID metFORMIN HCl ER 750 HCl ER 750 HCl ER 750 MG MG MG metFORMIN metFORMIN No metFORMIN HCl ER 750 HCl ER 750 HCl ER 750 MG MG MG Aspir-Low Aspir-Low No 1{table QD Aspir-Low 81 MG 81 MG t} 81 MG metFORMIN metFORMIN No metFORMIN HCl ER 750 HCl ER 750 HCl ER 750 MG MG MG Jardiance Jardiance No 1{table QD Jardiance 25 MG 25 MG t} 25 MG FreeStyle FreeStyle No FreeStyle Ted 14 Ted 14 Ted 14 Day Sensor Day Sensor Day Sensor - - - Ibuprofen Ibuprofen No QID Ibuprofen 400 MG 400 MG 400 MG Cyclobenzap Cyclobenzap No 1{table QD Cyclobenza rine HCl 10 rine HCl 10 t_at_be sarita HCl MG MG dtime_a 10 MG s_neede d} Lisinopril Lisinopril No 1{table QD Lisinopril 40 MG 40 MG t} 40 MG Allopurinol Allopurinol No Allopurino 300 MG 300 MG l 300 MG Rosuvastati Rosuvastati No 1{table QD Rosuvastat n Calcium n Calcium t} in Calcium 20 MG 20 MG 20 MG Allopurinol Allopurinol No 1{table QD Allopurino 300 MG 300 MG t} l 300 MG ALPRAZolam ALPRAZolam No 1{table QD ALPRAZolam 2 MG 2 MG t} 2 MG Gabapentin Gabapentin No Gabapentin 300 MG 300 MG 300 MG Metoprolol Metoprolol No 1{table QD Metoprolol Succinate Succinate t} Succinate ER 25 MG ER 25 MG ER 25 MG Cyclobenzap Cyclobenzap No Cyclobenza rine HCl 10 rine HCl 10 sarita HCl MG MG 10 MG Aspir-Low Aspir-Low No 1{table QD Aspir-Low 81 MG 81 MG t} 81 MG glipiZIDE glipiZIDE No 1{table QD glipiZIDE XL 10 MG XL 10 MG t_with_ XL [address]} metFORMIN metFORMIN No BID metFORMIN HCl ER 750 HCl ER 750 HCl ER 750 MG MG MG Gabapentin Gabapentin No 1{capsu BID Gabapentin 300 MG 300 MG le} 300 MG Lisinopril Lisinopril No Lisinopril 40 MG 40 MG 40 MG glipiZIDE glipiZIDE No glipiZIDE ER 10 MG ER 10 MG ER 10 MG FreeStyle FreeStyle No FreeStyle Ted 14 Ted 14 Ted 14 Day [place] Day [place] Day [place] - - - Rosuvastati Rosuvastati No Rosuvastat n Calcium n Calcium in Calcium 20 MG 20 MG 20 MG Metoprolol Metoprolol No Metoprolol Succinate Succinate Succinate ER 25 MG ER 25 MG ER 25 MG metFORMIN metFORMIN No metFORMIN HCl ER 750 HCl ER 750 HCl ER 750 MG MG MG Jardiance Jardiance No 1{table QD Jardiance 25 MG 25 MG t} 25 MG FreeStyle FreeStyle No FreeStyle Ted 14 Ted 14 Ted 14 Day Sensor Day Sensor Day Sensor - - - Ibuprofen Ibuprofen No QID Ibuprofen 400 MG 400 MG 400 MG Cyclobenzap Cyclobenzap No 1{table QD Cyclobenza rine HCl 10 rine HCl 10 t_at_be sarita HCl MG MG dtime_a 10 MG s_neede d} Lisinopril Lisinopril No 1{table QD Lisinopril 40 MG 40 MG t} 40 MG Allopurinol Allopurinol No Allopurino 300 MG 300 MG l 300 MG Rosuvastati Rosuvastati No 1{table QD Rosuvastat n Calcium n Calcium t} in Calcium 20 MG 20 MG 20 MG Allopurinol Allopurinol No 1{table QD Allopurino 300 MG 300 MG t} l 300 MG ALPRAZolam ALPRAZolam No 1{table QD ALPRAZolam 2 MG 2 MG t} 2 MG Gabapentin Gabapentin No Gabapentin 300 MG 300 MG 300 MG Metoprolol Metoprolol No 1{table QD Metoprolol Succinate Succinate t} Succinate ER 25 MG ER 25 MG ER 25 MG Cyclobenzap Cyclobenzap No Cyclobenza rine HCl 10 rine HCl 10 sarita HCl MG MG 10 MG Aspir-Low Aspir-Low No 1{table QD Aspir-Low 81 MG 81 MG t} 81 MG glipiZIDE glipiZIDE No 1{table QD glipiZIDE XL 10 MG XL 10 MG t_with_ XL [address]} metFORMIN metFORMIN No BID metFORMIN HCl ER 750 HCl ER 750 HCl ER 750 MG MG MG Gabapentin Gabapentin No 1{capsu BID Gabapentin 300 MG 300 MG le} 300 MG Lisinopril Lisinopril No Lisinopril 40 MG 40 MG 40 MG glipiZIDE glipiZIDE No glipiZIDE ER 10 MG ER 10 MG ER 10 MG FreeStyle FreeStyle No FreeStyle Ted 14 Ted 14 Ted 14 Day [place] Day [place] Day [place] - - - Rosuvastati Rosuvastati No Rosuvastat n Calcium n Calcium in Calcium 20 MG 20 MG 20 MG Metoprolol Metoprolol No Metoprolol Succinate Succinate Succinate ER 25 MG ER 25 MG ER 25 MG Jardiance Jardiance No 1{table QD Jardiance 25 MG 25 MG t} 25 MG Cyclobenzap Cyclobenzap No 1{table QD Cyclobenza rine HCl 10 rine HCl 10 t_at_be sarita HCl MG MG dtime_a 10 MG s_neede d} Allopurinol Allopurinol No Allopurino 300 MG 300 MG l 300 MG Lisinopril Lisinopril No 1{table QD Lisinopril 40 MG 40 MG t} 40 MG Ibuprofen Ibuprofen No QID Ibuprofen 400 MG 400 MG 400 MG Rosuvastati Rosuvastati No 1{table QD Rosuvastat n Calcium n Calcium t} in Calcium 20 MG 20 MG 20 MG glipiZIDE glipiZIDE No 1{table QD glipiZIDE XL 10 MG XL 10 MG t_with_ XL [address]} Allopurinol Allopurinol No 1{table QD Allopurino 300 MG 300 MG t} l 300 MG ALPRAZolam ALPRAZolam No 1{table QD ALPRAZolam 2 MG 2 MG t} 2 MG Gabapentin Gabapentin No Gabapentin 300 MG 300 MG 300 MG Metoprolol Metoprolol No 1{table QD Metoprolol Succinate Succinate t} Succinate ER 25 MG ER 25 MG ER 25 MG metFORMIN metFORMIN No BID metFORMIN HCl ER 750 HCl ER 750 HCl ER 750 MG MG MG Aspir-Low Aspir-Low No 1{table QD Aspir-Low 81 MG 81 MG t} 81 MG Cyclobenzap Cyclobenzap No Cyclobenza rine HCl 10 rine HCl 10 sarita HCl MG MG 10 MG metFORMIN metFORMIN No metFORMIN HCl ER 750 HCl ER 750 HCl ER 750 MG MG MG Gabapentin Gabapentin No 1{capsu BID Gabapentin 300 MG 300 MG le} 300 MG FreeStyle FreeStyle No FreeStyle Ted 14 Ted 14 Ted 14 Day Sensor Day Sensor Day Sensor - - - Lisinopril Lisinopril No Lisinopril 40 MG 40 MG 40 MG glipiZIDE glipiZIDE No glipiZIDE ER 10 MG ER 10 MG ER 10 MG FreeStyle FreeStyle No FreeStyle Ted 14 Ted 14 Ted 14 Day [place] Day [place] Day [place] - - - Rosuvastati Rosuvastati No Rosuvastat n Calcium n Calcium in Calcium 20 MG 20 MG 20 MG Metoprolol Metoprolol No Metoprolol Succinate Succinate Succinate ER 25 MG ER 25 MG ER 25 MG Allopurinol Allopurinol No 300 MG 300 MG ALPRAZolam ALPRAZolam No 1{table QD 2 MG 2 MG t} Allopurinol Allopurinol No 1{table QD 300 MG 300 MG t} Jardiance Jardiance No 1{table QD 25 MG 25 MG t} glipiZIDE glipiZIDE No 1{table QD XL 10 MG XL 10 MG t_with_ breakfa st} Metoprolol Metoprolol No 1{table QD Succinate Succinate t} ER 25 MG ER 25 MG FreeStyle FreeStyle No Ted 14 Ted 14 Day Sensor Day Sensor - - Ibuprofen Ibuprofen No QID 400 MG 400 MG Cyclobenzap Cyclobenzap No 1{table QD rine HCl 10 rine HCl 10 t_at_be MG MG dtime_a s_neede d} Metoprolol Metoprolol No Succinate Succinate ER 25 MG ER 25 MG metFORMIN metFORMIN No BID HCl ER 750 HCl ER 750 MG MG Lisinopril Lisinopril No 1{table QD 40 MG 40 MG t} Rosuvastati Rosuvastati No n Calcium n Calcium 20 MG 20 MG Gabapentin Gabapentin No 1{capsu BID 300 MG 300 MG le} Gabapentin Gabapentin No 300 MG 300 MG Aspir-Low Aspir-Low No 1{table QD 81 MG 81 MG t} Lisinopril Lisinopril No 40 MG 40 MG Cyclobenzap Cyclobenzap No rine HCl 10 rine HCl 10 MG MG metFORMIN metFORMIN No HCl ER 750 HCl ER 750 MG MG Rosuvastati Rosuvastati No 1{table QD n Calcium n Calcium t} 20 MG 20 MG glipiZIDE glipiZIDE No ER 10 MG ER 10 MG FreeStyle FreeStyle No Ted 14 Ted 14 Day [place] Day [place] - - Allopurinol Allopurinol No Allopurino 300 MG 300 MG l 300 MG ALPRAZolam ALPRAZolam No 1{table QD ALPRAZolam 2 MG 2 MG t} 2 MG Allopurinol Allopurinol No 1{table QD Allopurino 300 MG 300 MG t} l 300 MG Jardiance Jardiance No 1{table QD Jardiance 25 MG 25 MG t} 25 MG glipiZIDE glipiZIDE No 1{table QD glipiZIDE XL 10 MG XL 10 MG t_with_ XL [address]} Metoprolol Metoprolol No 1{table QD Metoprolol Succinate Succinate t} Succinate ER 25 MG ER 25 MG ER 25 MG FreeStyle FreeStyle No FreeStyle Ted 14 Ted 14 Ted 14 Day Sensor Day Sensor Day Sensor - - - Ibuprofen Ibuprofen No QID Ibuprofen 400 MG 400 MG 400 MG Cyclobenzap Cyclobenzap No 1{table QD Cyclobenza rine HCl 10 rine HCl 10 t_at_be sarita HCl MG MG dtime_a 10 MG s_neede d} Metoprolol Metoprolol No Metoprolol Succinate Succinate Succinate ER 25 MG ER 25 MG ER 25 MG metFORMIN metFORMIN No BID metFORMIN HCl ER 750 HCl ER 750 HCl ER 750 MG MG MG Lisinopril Lisinopril No 1{table QD Lisinopril 40 MG 40 MG t} 40 MG Rosuvastati Rosuvastati No Rosuvastat n Calcium n Calcium in Calcium 20 MG 20 MG 20 MG Gabapentin Gabapentin No 1{capsu BID Gabapentin 300 MG 300 MG le} 300 MG Gabapentin Gabapentin No Gabapentin 300 MG 300 MG 300 MG Aspir-Low Aspir-Low No 1{table QD Aspir-Low 81 MG 81 MG t} 81 MG Lisinopril Lisinopril No Lisinopril 40 MG 40 MG 40 MG Cyclobenzap Cyclobenzap No Cyclobenza rine HCl 10 rine HCl 10 sarita HCl MG MG 10 MG metFORMIN metFORMIN No metFORMIN HCl ER 750 HCl ER 750 HCl ER 750 MG MG MG Rosuvastati Rosuvastati No 1{table QD Rosuvastat n Calcium n Calcium t} in Calcium 20 MG 20 MG 20 MG glipiZIDE glipiZIDE No glipiZIDE ER 10 MG ER 10 MG ER 10 MG FreeStyle FreeStyle No FreeStyle Ted 14 Ted 14 Ted 14 Day [place] Day [place] Day [place] - - - Allopurinol Allopurinol No Allopurino 300 MG 300 MG l 300 MG ALPRAZolam ALPRAZolam No 1{table QD ALPRAZolam 2 MG 2 MG t} 2 MG Allopurinol Allopurinol No 1{table QD Allopurino 300 MG 300 MG t} l 300 MG Jardiance Jardiance No 1{table QD Jardiance 25 MG 25 MG t} 25 MG glipiZIDE glipiZIDE No 1{table QD glipiZIDE XL 10 MG XL 10 MG t_with_ XL [address]} Metoprolol Metoprolol No 1{table QD Metoprolol Succinate Succinate t} Succinate ER 25 MG ER 25 MG ER 25 MG FreeStyle FreeStyle No FreeStyle Ted 14 Ted 14 Ted 14 Day Sensor Day Sensor Day Sensor - - - Ibuprofen Ibuprofen No QID Ibuprofen 400 MG 400 MG 400 MG Cyclobenzap Cyclobenzap No 1{table QD Cyclobenza rine HCl 10 rine HCl 10 t_at_be sarita HCl MG MG dtime_a 10 MG s_neede d} Metoprolol Metoprolol No Metoprolol Succinate Succinate Succinate ER 25 MG ER 25 MG ER 25 MG metFORMIN metFORMIN No BID metFORMIN HCl ER 750 HCl ER 750 HCl ER 750 MG MG MG Lisinopril Lisinopril No 1{table QD Lisinopril 40 MG 40 MG t} 40 MG Rosuvastati Rosuvastati No Rosuvastat n Calcium n Calcium in Calcium 20 MG 20 MG 20 MG Gabapentin Gabapentin No 1{capsu BID Gabapentin 300 MG 300 MG le} 300 MG Gabapentin Gabapentin No Gabapentin 300 MG 300 MG 300 MG Aspir-Low Aspir-Low No 1{table QD Aspir-Low 81 MG 81 MG t} 81 MG Lisinopril Lisinopril No Lisinopril 40 MG 40 MG 40 MG Cyclobenzap Cyclobenzap No Cyclobenza rine HCl 10 rine HCl 10 sariat HCl MG MG 10 MG metFORMIN metFORMIN No metFORMIN HCl ER 750 HCl ER 750 HCl ER 750 MG MG MG Rosuvastati Rosuvastati No 1{table QD Rosuvastat n Calcium n Calcium t} in Calcium 20 MG 20 MG 20 MG glipiZIDE glipiZIDE No glipiZIDE ER 10 MG ER 10 MG ER 10 MG FreeStyle FreeStyle No FreeStyle Ted 14 Ted 14 Ted 14 Day [place] Day [place] Day [place] - - - Allopurinol Allopurinol No Allopurino 300 MG 300 MG l 300 MG ALPRAZolam ALPRAZolam No 1{table QD ALPRAZolam 2 MG 2 MG t} 2 MG Allopurinol Allopurinol No 1{table QD Allopurino 300 MG 300 MG t} l 300 MG Jardiance Jardiance No 1{table QD Jardiance 25 MG 25 MG t} 25 MG glipiZIDE glipiZIDE No 1{table QD glipiZIDE XL 10 MG XL 10 MG t_with_ XL [address]} Metoprolol Metoprolol No 1{table QD Metoprolol Succinate Succinate t} Succinate ER 25 MG ER 25 MG ER 25 MG FreeStyle FreeStyle No FreeStyle Ted 14 Ted 14 Ted 14 Day Sensor Day Sensor Day Sensor - - - Ibuprofen Ibuprofen No QID Ibuprofen 400 MG 400 MG 400 MG Cyclobenzap Cyclobenzap No 1{table QD Cyclobenza rine HCl 10 rine HCl 10 t_at_be sarita HCl MG MG dtime_a 10 MG s_neede d} Metoprolol Metoprolol No Metoprolol Succinate Succinate Succinate ER 25 MG ER 25 MG ER 25 MG metFORMIN metFORMIN No BID metFORMIN HCl ER 750 HCl ER 750 HCl ER 750 MG MG MG Lisinopril Lisinopril No 1{table QD Lisinopril 40 MG 40 MG t} 40 MG Rosuvastati Rosuvastati No Rosuvastat n Calcium n Calcium in Calcium 20 MG 20 MG 20 MG Gabapentin Gabapentin No 1{capsu BID Gabapentin 300 MG 300 MG le} 300 MG Gabapentin Gabapentin No Gabapentin 300 MG 300 MG 300 MG Aspir-Low Aspir-Low No 1{table QD Aspir-Low 81 MG 81 MG t} 81 MG Lisinopril Lisinopril No Lisinopril 40 MG 40 MG 40 MG Cyclobenzap Cyclobenzap No Cyclobenza rine HCl 10 rine HCl 10 sarita HCl MG MG 10 MG metFORMIN metFORMIN No metFORMIN HCl ER 750 HCl ER 750 HCl ER 750 MG MG MG Rosuvastati Rosuvastati No 1{table QD Rosuvastat n Calcium n Calcium t} in Calcium 20 MG 20 MG 20 MG glipiZIDE glipiZIDE No glipiZIDE ER 10 MG ER 10 MG ER 10 MG FreeStyle FreeStyle No FreeStyle Ted 14 Ted 14 Ted 14 Day [place] Day [place] Day [place] - - - Allopurinol Allopurinol No Allopurino 300 MG 300 MG l 300 MG ALPRAZolam ALPRAZolam No 1{table QD ALPRAZolam 2 MG 2 MG t} 2 MG Allopurinol Allopurinol No 1{table QD Allopurino 300 MG 300 MG t} l 300 MG Jardiance Jardiance No 1{table QD Jardiance 25 MG 25 MG t} 25 MG glipiZIDE glipiZIDE No 1{table QD glipiZIDE XL 10 MG XL 10 MG t_with_ XL [address]} Metoprolol Metoprolol No 1{table QD Metoprolol Succinate Succinate t} Succinate ER 25 MG ER 25 MG ER 25 MG FreeStyle FreeStyle No FreeStyle Ted 14 Ted 14 Ted 14 Day Sensor Day Sensor Day Sensor - - - Ibuprofen Ibuprofen No QID Ibuprofen 400 MG 400 MG 400 MG Cyclobenzap Cyclobenzap No 1{table QD Cyclobenza rine HCl 10 rine HCl 10 t_at_be sarita HCl MG MG dtime_a 10 MG s_neede d} Metoprolol Metoprolol No Metoprolol Succinate Succinate Succinate ER 25 MG ER 25 MG ER 25 MG metFORMIN metFORMIN No BID metFORMIN HCl ER 750 HCl ER 750 HCl ER 750 MG MG MG Lisinopril Lisinopril No 1{table QD Lisinopril 40 MG 40 MG t} 40 MG Rosuvastati Rosuvastati No Rosuvastat n Calcium n Calcium in Calcium 20 MG 20 MG 20 MG Gabapentin Gabapentin No 1{capsu BID Gabapentin 300 MG 300 MG le} 300 MG Gabapentin Gabapentin No Gabapentin 300 MG 300 MG 300 MG Aspir-Low Aspir-Low No 1{table QD Aspir-Low 81 MG 81 MG t} 81 MG Lisinopril Lisinopril No Lisinopril 40 MG 40 MG 40 MG Cyclobenzap Cyclobenzap No Cyclobenza rine HCl 10 rine HCl 10 sarita HCl MG MG 10 MG metFORMIN metFORMIN No metFORMIN HCl ER 750 HCl ER 750 HCl ER 750 MG MG MG Rosuvastati Rosuvastati No 1{table QD Rosuvastat n Calcium n Calcium t} in Calcium 20 MG 20 MG 20 MG glipiZIDE glipiZIDE No glipiZIDE ER 10 MG ER 10 MG ER 10 MG FreeStyle FreeStyle No FreeStyle Ted 14 Ted 14 Ted 14 Day [place] Day [place] Day [place] - - - Allopurinol Allopurinol No Allopurino 300 MG 300 MG l 300 MG ALPRAZolam ALPRAZolam No 1{table QD ALPRAZolam 2 MG 2 MG t} 2 MG Allopurinol Allopurinol No 1{table QD Allopurino 300 MG 300 MG t} l 300 MG Jardiance Jardiance No 1{table QD Jardiance 25 MG 25 MG t} 25 MG glipiZIDE glipiZIDE No 1{table QD glipiZIDE XL 10 MG XL 10 MG t_with_ XL [address]} Metoprolol Metoprolol No 1{table QD Metoprolol Succinate Succinate t} Succinate ER 25 MG ER 25 MG ER 25 MG FreeStyle FreeStyle No FreeStyle Ted 14 Ted 14 Ted 14 Day Sensor Day Sensor Day Sensor - - - Ibuprofen Ibuprofen No QID Ibuprofen 400 MG 400 MG 400 MG Cyclobenzap Cyclobenzap No 1{table QD Cyclobenza rine HCl 10 rine HCl 10 t_at_be sarita HCl MG MG dtime_a 10 MG s_neede d} Metoprolol Metoprolol No Metoprolol Succinate Succinate Succinate ER 25 MG ER 25 MG ER 25 MG metFORMIN metFORMIN No BID metFORMIN HCl ER 750 HCl ER 750 HCl ER 750 MG MG MG Lisinopril Lisinopril No 1{table QD Lisinopril 40 MG 40 MG t} 40 MG Rosuvastati Rosuvastati No Rosuvastat n Calcium n Calcium in Calcium 20 MG 20 MG 20 MG Gabapentin Gabapentin No 1{capsu BID Gabapentin 300 MG 300 MG le} 300 MG Gabapentin Gabapentin No Gabapentin 300 MG 300 MG 300 MG Aspir-Low Aspir-Low No 1{table QD Aspir-Low 81 MG 81 MG t} 81 MG Lisinopril Lisinopril No Lisinopril 40 MG 40 MG 40 MG Cyclobenzap Cyclobenzap No Cyclobenza rine HCl 10 rine HCl 10 sarita HCl MG MG 10 MG metFORMIN metFORMIN No metFORMIN HCl ER 750 HCl ER 750 HCl ER 750 MG MG MG Rosuvastati Rosuvastati No 1{table QD Rosuvastat n Calcium n Calcium t} in Calcium 20 MG 20 MG 20 MG glipiZIDE glipiZIDE No glipiZIDE ER 10 MG ER 10 MG ER 10 MG FreeStyle FreeStyle No FreeStyle Ted 14 Ted 14 Ted 14 Day [place] Day [place] Day [place] - - - Allopurinol Allopurinol No Allopurino 300 MG 300 MG l 300 MG Metoprolol Metoprolol No 1{table QD Metoprolol Succinate Succinate t} Succinate ER 25 MG ER 25 MG ER 25 MG Allopurinol Allopurinol No 1{table QD Allopurino 300 MG 300 MG t} l 300 MG Ibuprofen Ibuprofen No QID Ibuprofen 400 MG 400 MG 400 MG glipiZIDE glipiZIDE No 1{table QD glipiZIDE XL 10 MG XL 10 MG t_with_ XL [address]} Gabapentin Gabapentin No 1{capsu BID Gabapentin 300 MG 300 MG le} 300 MG Lisinopril Lisinopril No Lisinopril 40 MG 40 MG 40 MG Cyclobenzap Cyclobenzap No Cyclobenza rine HCl 10 rine HCl 10 sarita HCl MG MG 10 MG Metoprolol Metoprolol No Metoprolol Succinate Succinate Succinate ER 25 MG ER 25 MG ER 25 MG Gabapentin Gabapentin No Gabapentin 300 MG 300 MG 300 MG Rosuvastati Rosuvastati No Rosuvastat n Calcium n Calcium in Calcium 20 MG 20 MG 20 MG metFORMIN metFORMIN No BID metFORMIN HCl ER 750 HCl ER 750 HCl ER 750 MG MG MG Jardiance Jardiance No 1{table QD Jardiance 25 MG 25 MG t} 25 MG Cyclobenzap Cyclobenzap No 1{table QD Cyclobenza rine HCl 10 rine HCl 10 t_at_be sarita HCl MG MG dtime_a 10 MG s_neede d} Aspir-Low Aspir-Low No 1{table QD Aspir-Low 81 MG 81 MG t} 81 MG Lisinopril Lisinopril No 1{table QD Lisinopril 40 MG 40 MG t} 40 MG Rosuvastati Rosuvastati No 1{table QD Rosuvastat n Calcium n Calcium t} in Calcium 20 MG 20 MG 20 MG metFORMIN metFORMIN No metFORMIN HCl ER 750 HCl ER 750 HCl ER 750 MG MG MG FreeStyle FreeStyle No FreeStyle Ted 14 Etd 14 Ted 14 Day Sensor Day Sensor Day Sensor - - - glipiZIDE glipiZIDE No glipiZIDE ER 10 MG ER 10 MG ER 10 MG FreeStyle FreeStyle No FreeStyle Ted 14 Ted 14 Ted 14 Day [place] Day [place] Day [place] - - - Allopurinol Allopurinol No Allopurino 300 MG 300 MG l 300 MG Metoprolol Metoprolol No 1{table QD Metoprolol Succinate Succinate t} Succinate ER 25 MG ER 25 MG ER 25 MG Allopurinol Allopurinol No 1{table QD Allopurino 300 MG 300 MG t} l 300 MG Ibuprofen Ibuprofen No QID Ibuprofen 400 MG 400 MG 400 MG glipiZIDE glipiZIDE No 1{table QD glipiZIDE XL 10 MG XL 10 MG t_with_ XL [address]} Gabapentin Gabapentin No 1{capsu BID Gabapentin 300 MG 300 MG le} 300 MG Lisinopril Lisinopril No Lisinopril 40 MG 40 MG 40 MG Cyclobenzap Cyclobenzap No Cyclobenza rine HCl 10 rine HCl 10 sarita HCl MG MG 10 MG Metoprolol Metoprolol No Metoprolol Succinate Succinate Succinate ER 25 MG ER 25 MG ER 25 MG Gabapentin Gabapentin No Gabapentin 300 MG 300 MG 300 MG Rosuvastati Rosuvastati No Rosuvastat n Calcium n Calcium in Calcium 20 MG 20 MG 20 MG metFORMIN metFORMIN No BID metFORMIN HCl ER 750 HCl ER 750 HCl ER 750 MG MG MG Jardiance Jardiance No 1{table QD Jardiance 25 MG 25 MG t} 25 MG Cyclobenzap Cyclobenzap No 1{table QD Cyclobenza rine HCl 10 rine HCl 10 t_at_be sarita HCl MG MG dtime_a 10 MG s_neede d} Aspir-Low Aspir-Low No 1{table QD Aspir-Low 81 MG 81 MG t} 81 MG Lisinopril Lisinopril No 1{table QD Lisinopril 40 MG 40 MG t} 40 MG Rosuvastati Rosuvastati No 1{table QD Rosuvastat n Calcium n Calcium t} in Calcium 20 MG 20 MG 20 MG metFORMIN metFORMIN No metFORMIN HCl ER 750 HCl ER 750 HCl ER 750 MG MG MG FreeStyle FreeStyle No FreeStyle Ted 14 Ted 14 Ted 14 Day Sensor Day Sensor Day Sensor - - - glipiZIDE glipiZIDE No glipiZIDE ER 10 MG ER 10 MG ER 10 MG FreeStyle FreeStyle No FreeStyle Ted 14 Ted 14 Ted 14 Day [place] Day Lindon Day [place] - - - Allopurinol Allopurinol No Allopurino 300 MG 300 MG l 300 MG Metoprolol Metoprolol No 1{table QD Metoprolol Succinate Succinate t} Succinate ER 25 MG ER 25 MG ER 25 MG Allopurinol Allopurinol No 1{table QD Allopurino 300 MG 300 MG t} l 300 MG Ibuprofen Ibuprofen No QID Ibuprofen 400 MG 400 MG 400 MG glipiZIDE glipiZIDE No 1{table QD glipiZIDE XL 10 MG XL 10 MG t_with_ XL [address]} Gabapentin Gabapentin No 1{capsu BID Gabapentin 300 MG 300 MG le} 300 MG Lisinopril Lisinopril No Lisinopril 40 MG 40 MG 40 MG Cyclobenzap Cyclobenzap No Cyclobenza rine HCl 10 rine HCl 10 sarita HCl MG MG 10 MG Metoprolol Metoprolol No Metoprolol Succinate Succinate Succinate ER 25 MG ER 25 MG ER 25 MG Gabapentin Gabapentin No Gabapentin 300 MG 300 MG 300 MG Rosuvastati Rosuvastati No Rosuvastat n Calcium n Calcium in Calcium 20 MG 20 MG 20 MG metFORMIN metFORMIN No BID metFORMIN HCl ER 750 HCl ER 750 HCl ER 750 MG MG MG Jardiance Jardiance No 1{table QD Jardiance 25 MG 25 MG t} 25 MG Cyclobenzap Cyclobenzap No 1{table QD Cyclobenza rine HCl 10 rine HCl 10 t_at_be sarita HCl MG MG dtime_a 10 MG s_neede d} Aspir-Low Aspir-Low No 1{table QD Aspir-Low 81 MG 81 MG t} 81 MG Lisinopril Lisinopril No 1{table QD Lisinopril 40 MG 40 MG t} 40 MG Rosuvastati Rosuvastati No 1{table QD Rosuvastat n Calcium n Calcium t} in Calcium 20 MG 20 MG 20 MG metFORMIN metFORMIN No metFORMIN HCl ER 750 HCl ER 750 HCl ER 750 MG MG MG FreeStyle FreeStyle No FreeStyle Ted 14 Ted 14 Ted 14 Day Sensor Day Sensor Day Sensor - - - glipiZIDE glipiZIDE No glipiZIDE ER 10 MG ER 10 MG ER 10 MG FreeStyle FreeStyle No FreeStyle Ted 14 Ted 14 Ted 14 Day [place] Day Lind[place] Day [place] - - - Allopurinol Allopurinol No Allopurino 300 MG 300 MG l 300 MG Metoprolol Metoprolol No 1{table QD Metoprolol Succinate Succinate t} Succinate ER 25 MG ER 25 MG ER 25 MG Allopurinol Allopurinol No 1{table QD Allopurino 300 MG 300 MG t} l 300 MG Ibuprofen Ibuprofen No QID Ibuprofen 400 MG 400 MG 400 MG glipiZIDE glipiZIDE No 1{table QD glipiZIDE XL 10 MG XL 10 MG t_with_ XL [address]} Gabapentin Gabapentin No 1{capsu BID Gabapentin 300 MG 300 MG le} 300 MG Lisinopril Lisinopril No Lisinopril 40 MG 40 MG 40 MG Cyclobenzap Cyclobenzap No Cyclobenza rine HCl 10 rine HCl 10 sarita HCl MG MG 10 MG Metoprolol Metoprolol No Metoprolol Succinate Succinate Succinate ER 25 MG ER 25 MG ER 25 MG Gabapentin Gabapentin No Gabapentin 300 MG 300 MG 300 MG Rosuvastati Rosuvastati No Rosuvastat n Calcium n Calcium in Calcium 20 MG 20 MG 20 MG metFORMIN metFORMIN No BID metFORMIN HCl ER 750 HCl ER 750 HCl ER 750 MG MG MG Jardiance Jardiance No 1{table QD Jardiance 25 MG 25 MG t} 25 MG Cyclobenzap Cyclobenzap No 1{table QD Cyclobenza rine HCl 10 rine HCl 10 t_at_be sarita HCl MG MG dtime_a 10 MG s_neede d} Aspir-Low Aspir-Low No 1{table QD Aspir-Low 81 MG 81 MG t} 81 MG Lisinopril Lisinopril No 1{table QD Lisinopril 40 MG 40 MG t} 40 MG Rosuvastati Rosuvastati No 1{table QD Rosuvastat n Calcium n Calcium t} in Calcium 20 MG 20 MG 20 MG metFORMIN metFORMIN No metFORMIN HCl ER 750 HCl ER 750 HCl ER 750 MG MG MG FreeStyle FreeStyle No FreeStyle Ted 14 Ted 14 Ted 14 Day Sensor Day Sensor Day Sensor - - - glipiZIDE glipiZIDE No glipiZIDE ER 10 MG ER 10 MG ER 10 MG FreeStyle FreeStyle No FreeStyle Ted 14 Ted 14 Ted 14 Day [place] Day Lind[place] Day [place] - - - FreeStyle FreeStyle No FreeStyle Ted 14 Ted 14 Ted 14 Day Sensor Day Sensor Day Sensor - - - Aspir-Low Aspir-Low No 1{table QD Aspir-Low 81 MG 81 MG t} 81 MG Cyclobenzap Cyclobenzap No 1{table QD Cyclobenza rine HCl 10 rine HCl 10 t_at_be sarita HCl MG MG dtime_a 10 MG s_neede d} Lisinopril Lisinopril No 1{table QD Lisinopril 40 MG 40 MG t} 40 MG Metoprolol Metoprolol No 1{table QD Metoprolol Succinate Succinate t} Succinate ER 25 MG ER 25 MG ER 25 MG Allopurinol Allopurinol No 1{table QD Allopurino 300 MG 300 MG t} l 300 MG Allopurinol Allopurinol No Allopurino 300 MG 300 MG l 300 MG Lisinopril Lisinopril No Lisinopril 40 MG 40 MG 40 MG Rosuvastati Rosuvastati No Rosuvastat n Calcium n Calcium in Calcium 20 MG 20 MG 20 MG glipiZIDE glipiZIDE No 1{table QD glipiZIDE XL 10 MG XL 10 MG t_with_ XL [address]} Metoprolol Metoprolol No Metoprolol Succinate Succinate Succinate ER 25 MG ER 25 MG ER 25 MG Cyclobenzap Cyclobenzap No Cyclobenza rine HCl 10 rine HCl 10 sarita HCl MG MG 10 MG Rosuvastati Rosuvastati No 1{table QD Rosuvastat n Calcium n Calcium t} in Calcium 20 MG 20 MG 20 MG Ibuprofen Ibuprofen No QID Ibuprofen 400 MG 400 MG 400 MG Gabapentin Gabapentin No Gabapentin 300 MG 300 MG 300 MG glipiZIDE glipiZIDE No glipiZIDE ER 10 MG ER 10 MG ER 10 MG FreeStyle FreeStyle No FreeStyle Ted 14 Ted 14 Ted 14 Day [place] Day [place] Day [place] - - - Jardiance Jardiance No 1{table QD Jardiance 25 MG 25 MG t} 25 MG metFORMIN metFORMIN No metFORMIN HCl ER 750 HCl ER 750 HCl ER 750 MG MG MG metFORMIN metFORMIN No BID metFORMIN HCl ER 750 HCl ER 750 HCl ER 750 MG MG MG Gabapentin Gabapentin No 1{capsu BID Gabapentin 300 MG 300 MG le} 300 MG Allopurinol Allopurinol No Allopurino 300 MG 300 MG l 300 MG glipiZIDE glipiZIDE No 1{table QD glipiZIDE XL 10 MG XL 10 MG t_with_ XL [address]} Allopurinol Allopurinol No 1{table QD Allopurino 300 MG 300 MG t} l 300 MG Gabapentin Gabapentin No Gabapentin 300 MG 300 MG 300 MG metFORMIN metFORMIN No BID metFORMIN HCl ER 750 HCl ER 750 HCl ER 750 MG MG MG Ibuprofen Ibuprofen No QID Ibuprofen 400 MG 400 MG 400 MG Gabapentin Gabapentin No 1{capsu BID Gabapentin 300 MG 300 MG le} 300 MG Lisinopril Lisinopril No Lisinopril 40 MG 40 MG 40 MG Rosuvastati Rosuvastati No Rosuvastat n Calcium n Calcium in Calcium 20 MG 20 MG 20 MG metFORMIN metFORMIN No metFORMIN HCl ER 750 HCl ER 750 HCl ER 750 MG MG MG Cyclobenzap Cyclobenzap No 1{table QD Cyclobenza rine HCl 10 rine HCl 10 t_at_be sarita HCl MG MG dtime_a 10 MG s_neede d} Cyclobenzap Cyclobenzap No Cyclobenza rine HCl 10 rine HCl 10 sarita HCl MG MG 10 MG FreeStyle FreeStyle No FreeStyle Ted 14 Ted 14 Ted 14 Day [place] Day [place] Day [place] - - - Aspir-Low Aspir-Low No 1{table QD Aspir-Low 81 MG 81 MG t} 81 MG Jardiance Jardiance No 1{table QD Jardiance 25 MG 25 MG t} 25 MG FreeStyle FreeStyle No FreeStyle Ted 14 Ted 14 Ted 14 Day Sensor Day Sensor Day Sensor - - - glipiZIDE glipiZIDE No glipiZIDE ER 10 MG ER 10 MG ER 10 MG Metoprolol Metoprolol No Metoprolol Succinate Succinate Succinate ER 25 MG ER 25 MG ER 25 MG Lisinopril Lisinopril No 1{table QD Lisinopril 40 MG 40 MG t} 40 MG Allopurinol Allopurinol No Allopurino 300 MG 300 MG l 300 MG Allopurinol Allopurinol No 1{table QD Allopurino 300 MG 300 MG t} l 300 MG Ibuprofen Ibuprofen No QID Ibuprofen 400 MG 400 MG 400 MG Allopurinol Allopurinol Yes Tom 1 tablet [facility] Gabapentin Gabapentin Yes Tom 1 capsule [facility] Acetaminoph Acetaminoph Yes Tom 1 tablet [facility] en-Codeine en-Codeine [facility] as needed [facility] #3 #3 - [facility] Ibuprofen Ibuprofen Yes Tom 1 tablet [facility] with food [facility] or milk as - [facility] Lisinopril Lisinopril Yes Tom 1 tablet [facility] Aspir-Low Aspir-Low Yes Tom 1 tablet [facility] Cyclobenzap Cyclobenzap Yes Tom 1 tablet [facility] rine HCl rine HCl [facility] at bedtime [facility] as needed - [facility] Alprazolam Alprazolam Yes Tom 1 tablet [facility] Rosuvastati Rosuvastati Yes Tom 1 tablet [facility] n Calcium n Calcium [facility] Sp[facility] it [facility] Metoprolol Metoprolol Yes Tom 1 tablet Common Succinate Succinate [facility] Spir it ER ER - [facility] glyBURIDE-m glyBURIDE-m Yes Tom 1 tablet Common etFORMIN etFORMIN [facility] with a Spir it meal [facility] Jardiance Jardiance Yes Tom 1 tablet [facility] Gabapentin Gabapentin No Gabapentin 300 MG 300 MG 300 MG metFORMIN metFORMIN No BID metFORMIN HCl ER 750 HCl ER 750 HCl ER 750 MG MG MG Gabapentin Gabapentin No 1{capsu BID Gabapentin 300 MG 300 MG le} 300 MG Lisinopril Lisinopril No Lisinopril 40 MG 40 MG 40 MG Rosuvastati Rosuvastati No Rosuvastat n Calcium n Calcium in Calcium 20 MG 20 MG 20 MG metFORMIN metFORMIN No metFORMIN HCl ER 750 HCl ER 750 HCl ER 750 MG MG MG Cyclobenzap Cyclobenzap No 1{table QD Cyclobenza rine HCl 10 rine HCl 10 t_at_be sarita HCl MG MG dtime_a 10 MG s_neede d} Cyclobenzap Cyclobenzap No Cyclobenza rine HCl 10 rine HCl 10 sarita HCl MG MG 10 MG Lisinopril Lisinopril No 1{table QD Lisinopril 40 MG 40 MG t} 40 MG Aspir-Low Aspir-Low No 1{table QD Aspir-Low 81 MG 81 MG t} 81 MG Jardiance Jardiance No 1{table QD Jardiance 25 MG 25 MG t} 25 MG FreeStyle FreeStyle No FreeStyle Ted 14 Ted 14 Ted 14 Day [place] Day [place] Day [place] - - - FreeStyle FreeStyle No FreeStyle Ted 14 Ted 14 Ted 14 Day Sensor Day Sensor Day Sensor - - - glipiZIDE glipiZIDE No glipiZIDE ER 10 MG ER 10 MG ER 10 MG Metoprolol Metoprolol No Metoprolol Succinate Succinate Succinate ER 25 MG ER 25 MG ER 25 MG glipiZIDE glipiZIDE No 1{table QD glipiZIDE XL 10 MG XL 10 MG t_with_ XL [address]} ALPRAZolam ALPRAZolam No 1{table QD ALPRAZolam 2 MG 2 MG t} 2 MG Lisinopril Lisinopril No 1{table QD Lisinopril 40 MG 40 MG t} 40 MG Cyclobenzap Cyclobenzap No 1{table QD Cyclobenza rine HCl 10 rine HCl 10 t_at_be sarita HCl MG MG dtime_a 10 MG s_neede d} Gabapentin Gabapentin No 1{capsu BID Gabapentin 300 MG 300 MG le} 300 MG glipiZIDE glipiZIDE No 1{table QD glipiZIDE XL 10 MG XL 10 MG t_with_ XL [address]} Aspir-Low Aspir-Low No 1{table QD Aspir-Low 81 MG 81 MG t} 81 MG Ibuprofen Ibuprofen No QID Ibuprofen 400 MG 400 MG 400 MG metFORMIN metFORMIN No BID metFORMIN HCl ER 750 HCl ER 750 HCl ER 750 MG MG MG Metoprolol Metoprolol No 1{table QD Metoprolol Succinate Succinate t} Succinate ER 25 MG ER 25 MG ER 25 MG Jardiance Jardiance No 1{table QD Jardiance 25 MG 25 MG t} 25 MG Allopurinol Allopurinol No 1{table QD Allopurino 300 MG 300 MG t} l 300 MG Rosuvastati Rosuvastati No 1{table QD Rosuvastat n Calcium n Calcium t} in Calcium 20 MG 20 MG 20 MG Acetaminoph Acetaminoph No 1{table Acetaminop en-Codeine en-Codeine t_as_ne hen-Codein #3 300-30 #3 300-30 eded} e #3 MG MG 300-30 MG ALPRAZolam ALPRAZolam No 1{table QD ALPRAZolam 2 MG 2 MG t} 2 MG Lisinopril Lisinopril No 1{table QD Lisinopril 40 MG 40 MG t} 40 MG Cyclobenzap Cyclobenzap No 1{table QD Cyclobenza rine HCl 10 rine HCl 10 t_at_be sarita HCl MG MG dtime_a 10 MG s_neede d} Gabapentin Gabapentin No 1{capsu BID Gabapentin 300 MG 300 MG le} 300 MG glipiZIDE glipiZIDE No 1{table QD glipiZIDE XL 10 MG XL 10 MG t_with_ XL [address]} Aspir-Low Aspir-Low No 1{table QD Aspir-Low 81 MG 81 MG t} 81 MG Ibuprofen Ibuprofen No QID Ibuprofen 400 MG 400 MG 400 MG metFORMIN metFORMIN No BID metFORMIN HCl ER 750 HCl ER 750 HCl ER 750 MG MG MG Metoprolol Metoprolol No 1{table QD Metoprolol Succinate Succinate t} Succinate ER 25 MG ER 25 MG ER 25 MG Jardiance Jardiance No 1{table QD Jardiance 25 MG 25 MG t} 25 MG Allopurinol Allopurinol No 1{table QD Allopurino 300 MG 300 MG t} l 300 MG Rosuvastati Rosuvastati No 1{table QD Rosuvastat n Calcium n Calcium t} in Calcium 20 MG 20 MG 20 MG Acetaminoph Acetaminoph No 1{table Acetaminop en-Codeine en-Codeine t_as_ne hen-Codein #3 300-30 #3 300-30 eded} e #3 MG MG 300-30 MG Lisinopril Lisinopril No 1{table QD Lisinopril 40 MG 40 MG t} 40 MG Metoprolol Metoprolol No 1{table QD Metoprolol Succinate Succinate t} Succinate ER 25 MG ER 25 MG ER 25 MG Allopurinol Allopurinol No 1{table QD Allopurino 300 MG 300 MG t} l 300 MG Aspir-Low Aspir-Low No 1{table QD Aspir-Low 81 MG 81 MG t} 81 MG ALPRAZolam ALPRAZolam No 1{table QD ALPRAZolam 2 MG 2 MG t} 2 MG Gabapentin Gabapentin No 1{capsu BID Gabapentin 300 MG 300 MG le} 300 MG metFORMIN metFORMIN No BID metFORMIN HCl ER 750 HCl ER 750 HCl ER 750 MG MG MG Cyclobenzap Cyclobenzap No 1{table QD Cyclobenza rine HCl 10 rine HCl 10 t_at_be sarita HCl MG MG dtime_a 10 MG s_neede d} glipiZIDE glipiZIDE No 1{table QD glipiZIDE XL 10 MG XL 10 MG t_with_ XL [address]} Jardiance Jardiance No 1{table QD Jardiance 25 MG 25 MG t} 25 MG Ibuprofen Ibuprofen No QID Ibuprofen 400 MG 400 MG 400 MG Rosuvastati Rosuvastati No 1{table QD Rosuvastat n Calcium n Calcium t} in Calcium 20 MG 20 MG 20 MG Acetaminoph Acetaminoph No 1{table Acetaminop en-Codeine en-Codeine t_as_ne hen-Codein #3 300-30 #3 300-30 eded} e #3 MG MG 300-30 MG Lisinopril Lisinopril No 1{table QD Lisinopril 40 MG 40 MG t} 40 MG Aspir-Low Aspir-Low No 1{table QD Aspir-Low 81 MG 81 MG t} 81 MG ALPRAZolam ALPRAZolam No 1{table QD ALPRAZolam 2 MG 2 MG t} 2 MG Allopurinol Allopurinol No 1{table QD Allopurino 300 MG 300 MG t} l 300 MG Cyclobenzap Cyclobenzap No Cyclobenza rine HCl 10 rine HCl 10 sarita HCl MG MG 10 MG Gabapentin Gabapentin No 1{capsu BID Gabapentin 300 MG 300 MG le} 300 MG metFORMIN metFORMIN No BID metFORMIN HCl ER 750 HCl ER 750 HCl ER 750 MG MG MG Metoprolol Metoprolol No 1{table QD Metoprolol Succinate Succinate t} Succinate ER 25 MG ER 25 MG ER 25 MG glipiZIDE glipiZIDE No 1{table QD glipiZIDE XL 10 MG XL 10 MG t_with_ XL [address]} Jardiance Jardiance No 1{table QD Jardiance 25 MG 25 MG t} 25 MG Ibuprofen Ibuprofen No QID Ibuprofen 400 MG 400 MG 400 MG Rosuvastati Rosuvastati No 1{table QD Rosuvastat n Calcium n Calcium t} in Calcium 20 MG 20 MG 20 MG Acetaminoph Acetaminoph No 1{table Acetaminop en-Codeine en-Codeine t_as_ne hen-Codein #3 300-30 #3 300-30 eded} e #3 MG MG 300-30 MG Lisinopril Lisinopril No 1{table QD Lisinopril 40 MG 40 MG t} 40 MG Aspir-Low Aspir-Low No 1{table QD Aspir-Low 81 MG 81 MG t} 81 MG ALPRAZolam ALPRAZolam No 1{table QD ALPRAZolam 2 MG 2 MG t} 2 MG Allopurinol Allopurinol No 1{table QD Allopurino 300 MG 300 MG t} l 300 MG Cyclobenzap Cyclobenzap No Cyclobenza rine HCl 10 rine HCl 10 sarita HCl MG MG 10 MG Gabapentin Gabapentin No 1{capsu BID Gabapentin 300 MG 300 MG le} 300 MG metFORMIN metFORMIN No BID metFORMIN HCl ER 750 HCl ER 750 HCl ER 750 MG MG MG Metoprolol Metoprolol No 1{table QD Metoprolol Succinate Succinate t} Succinate ER 25 MG ER 25 MG ER 25 MG glipiZIDE glipiZIDE No 1{table QD glipiZIDE XL 10 MG XL 10 MG t_with_ XL [address]} Jardiance Jardiance No 1{table QD Jardiance 25 MG 25 MG t} 25 MG Ibuprofen Ibuprofen No QID Ibuprofen 400 MG 400 MG 400 MG Rosuvastati Rosuvastati No 1{table QD Rosuvastat n Calcium n Calcium t} in Calcium 20 MG 20 MG 20 MG Acetaminoph Acetaminoph No 1{table Acetaminop en-Codeine en-Codeine t_as_ne hen-Codein #3 300-30 #3 300-30 eded} e #3 MG MG 300-30 MG Lisinopril Lisinopril No 1{table QD Lisinopril 40 MG 40 MG t} 40 MG Aspir-Low Aspir-Low No 1{table QD Aspir-Low 81 MG 81 MG t} 81 MG ALPRAZolam ALPRAZolam No 1{table QD ALPRAZolam 2 MG 2 MG t} 2 MG Allopurinol Allopurinol No 1{table QD Allopurino 300 MG 300 MG t} l 300 MG Cyclobenzap Cyclobenzap No Cyclobenza rine HCl 10 rine HCl 10 sarita HCl MG MG 10 MG Gabapentin Gabapentin No 1{capsu BID Gabapentin 300 MG 300 MG le} 300 MG metFORMIN metFORMIN No BID metFORMIN HCl ER 750 HCl ER 750 HCl ER 750 MG MG MG Metoprolol Metoprolol No 1{table QD Metoprolol Succinate Succinate t} Succinate ER 25 MG ER 25 MG ER 25 MG glipiZIDE glipiZIDE No 1{table QD glipiZIDE XL 10 MG XL 10 MG t_with_ XL [address]} Jardiance Jardiance No 1{table QD Jardiance 25 MG 25 MG t} 25 MG Ibuprofen Ibuprofen No QID Ibuprofen 400 MG 400 MG 400 MG Rosuvastati Rosuvastati No 1{table QD Rosuvastat n Calcium n Calcium t} in Calcium 20 MG 20 MG 20 MG Acetaminoph Acetaminoph No 1{table Acetaminop en-Codeine en-Codeine t_as_ne hen-Codein #3 300-30 #3 300-30 eded} e #3 MG MG 300-30 MG glipiZIDE glipiZIDE No 1{table QD glipiZIDE XL 10 MG XL 10 MG t_with_ XL [address]} Allopurinol Allopurinol No 1{table QD Allopurino 300 MG 300 MG t} l 300 MG Lisinopril Lisinopril No 1{table QD Lisinopril 40 MG 40 MG t} 40 MG ALPRAZolam ALPRAZolam No 1{table QD ALPRAZolam 2 MG 2 MG t} 2 MG Cyclobenzap Cyclobenzap No Cyclobenza rine HCl 10 rine HCl 10 sarita HCl MG MG 10 MG Gabapentin Gabapentin No 1{capsu BID Gabapentin 300 MG 300 MG le} 300 MG metFORMIN metFORMIN No BID metFORMIN HCl ER 750 HCl ER 750 HCl ER 750 MG MG MG Aspir-Low Aspir-Low No 1{table QD Aspir-Low 81 MG 81 MG t} 81 MG Rosuvastati Rosuvastati No 1{table QD Rosuvastat n Calcium n Calcium t} in Calcium 20 MG 20 MG 20 MG Jardiance Jardiance No 1{table QD Jardiance 25 MG 25 MG t} 25 MG Ibuprofen Ibuprofen No QID Ibuprofen 400 MG 400 MG 400 MG Metoprolol Metoprolol No 1{table QD Metoprolol Succinate Succinate t} Succinate ER 25 MG ER 25 MG ER 25 MG Acetaminoph Acetaminoph No 1{table Acetaminop en-Codeine en-Codeine t_as_ne hen-Codein #3 300-30 #3 300-30 eded} e #3 MG MG 300-30 MG glipiZIDE glipiZIDE No 1{table QD glipiZIDE XL 10 MG XL 10 MG t_with_ XL [address]} Allopurinol Allopurinol No 1{table QD Allopurino 300 MG 300 MG t} l 300 MG Lisinopril Lisinopril No 1{table QD Lisinopril 40 MG 40 MG t} 40 MG Cyclobenzap Cyclobenzap 2021- No 1{table QD Cyclobenza rine HCl 10 rine HCl 10 01-19 t_at_be sarita HCl MG MG 00:00 dtime_a 10 MG :00 s_neede d} Cyclobenzap Cyclobenzap 2021- No 1{table QD Cyclobenza rine HCl 10 rine HCl 10 01-19 t_at_be sarita HCl MG MG 00:00 dtime_a 10 MG :00 s_neede d} Cyclobenzap Cyclobenzap 2021- No 1{table QD Cyclobenza rine HCl 10 rine HCl 10 01-19 t_at_be sarita HCl MG MG 00:00 dtime_a 10 MG :00 s_neede d} Cyclobenzap Cyclobenzap 2- No 1{table QD Cyclobenza rine HCl 10 rine HCl 10 01-19 t_at_be sarita HCl MG MG 00:00 dtime_a 10 MG :00 s_neede d} Cyclobenzap Cyclobenzap 2021- No 1{table QD Cyclobenza rine HCl 10 rine HCl 10 01-19 t_at_be sarita HCl MG MG 00:00 dtime_a 10 MG :00 s_neede d} Cyclobenzap Cyclobenzap 2021- No 1{table QD Cyclobenza rine HCl 10 rine HCl 10 01-19 t_at_be sarita HCl MG MG 00:00 dtime_a 10 MG :00 s_neede d} Immunizations Ordered Immunization Filled Immunization Date Status Commen ts Source Name Name Afluria Afluria 2021-[facility]-10 [facility] Afluria Afluria 2021-02-10 [facility] 09[facility]26:00 [facility] Afluria Afluria 2021-02-10 [facility] 09[facility]26:00 [facility] Afluria Afluria 2021-02-10 [facility] 09[facility]26:00 [facility] Afluria Afluria 2021-02-10 [facility] 09:26:00 [facility] Afluria Afluria 2021-02-10 [facility] 09:26:00 [facility] Afluria Afluria 2021-02-10 [facility] 09:26:00 [facility] Afluria Afluria 2021-02-10 [facility] 09[facility]26:00 [facility] Afluria Afluria 2021-02-10 [facility] 09:26:00 [facility] Afluria Afluria 2021-02-10 [facility] 09:26:00 [facility] Afluria Afluria 2021-02-10 [facility] 09:26:00 [facility] Afluria Afluria 2021-02-10 [facility] 09:26:00 [facility] Afluria Afluria 2021-02-10 [facility] 09:26:00 [facility] Afluria Afluria 2021-02-10 [facility] 09:26:00 [facility] Afluria Afluria 2021-02-10 [facility] 09:26:00 [facility] Afluria Afluria 2021-02-10 [facility] 09:26:00 [facility] Afluria Afluria 2021-02-10 [facility] 09:26:00 [facility] Afluria Afluria 2021-02-10 [facility] 09:26:00 [facility] Afluria Afluria 2021-02-10 [facility] 09:26:00 [facility] Afluria Afluria 2021-02-10 [facility] 09:26:00 [facility] Afluria Afluria 2021-02-10 [facility]pleted [facility] 09:26:00 [facility] Afluria Afluria 2021-02-10 [facility] 09:26:00 [facility] Afluria Afluria 2021-02-10 [facility]pleted [facility] 09:26:00 [facility] Afluria Afluria 2021-02-10 [facility]pleted [facility] 09:26:00 [facility] Afluria Afluria 2021-02-10 [facility]pleted [facility] 09:26:00 [facility] Afluria Afluria 2021-02-10 [facility]pleted [facility] 09:26:00 [facility] Afluria Afluria 2021-02-10 [facility]pleted [facility] 09:26:00 [facility] Afluria Afluria 2021-02-10 [facility]pleted [facility] 09:26:00 [facility] Afluria Afluria 2021-02-10 [facility]pleted [facility] 09:26:00 [facility] Afluria Afluria 2021-02-10 [facility]pleted [facility] 09:26:00 [facility] Afluria Afluria 2021-02-10 [facility]pleted [facility] 09:26:00 [facility] Afluria Afluria 2021-02-10 [facility]pleted [facility] 09:26:00 [facility] Afluria Afluria 2021-02-10 [facility]pleted [facility] 09:26:00 [facility] Afluria Afluria 2021-02-10 [facility]pleted [facility] 09:26:00 [facility] Afluria Afluria 2021-02-10 [facility]pleted [facility] 09:26:00 [facility] Afluria Afluria 2021-02-10 [facility]pleted [facility] 09:26:00 [facility] Afluria Afluria 2021-02-10 [facility]pleted [facility] 09:26:00 [facility] Afluria Afluria 2021-02-10 [facility]pleted [facility] 09:26:00 [facility] Afluria Afluria 2021-02-10 [facility]pleted [facility] 09:26:00 [facility] Afluria Afluria 2021-02-10 [facility]pleted [facility] 09:26:00 [facility] Afluria Afluria 2021-02-10 [facility]pleted [facility] 09:26:00 [facility] Afluria Afluria 2021-02-10 [facility]pleted [facility] 09:26:00 [facility] Afluria Afluria 2021-02-10 Completed [facility] 09:26:00 [facility] Afluria Afluria 2021-02-10 [facility]pleted [facility] 09:26:00 [facility] Afluria Afluria 2021-02-10 [facility]pleted [facility] 09:26:00 [facility] Afluria Afluria 2021-02-10 [facility]pleted [facility] 09:26:00 [facility] Gracie Bowman 2020-07-26 Completed [facility] - (Triamcinolone) (Triamcinolone) 15:18:00 [facility] Gracie Bowman 2020-07-26 Completed [facility] (Triamcinolone) (Triamcinolone) 15:18:00 [facility] Gracie Bowman 2020-07-26 Completed [facility] (Triamcinolone) (Triamcinolone) 15:18:00 [facility] Gracie Bowman 2020-07-26 [facility]pleted [facility] (Triamcinolone) (Triamcinolone) 15:18:00 [facility] Gracie Bowman 2020-07-26 [facility]pleted [facility] (Triamcinolone) (Triamcinolone) 15:18:00 [facility] Gracie Bowman 2020-07-26 [facility]pleted [facility] (Triamcinolone) (Triamcinolone) 15:18:00 [place] [facility] Gracie Bowman 2020-07-26 Completed [facility] - (Triamcinolone) (Triamcinolone) 15:18:00 [facility] COVID-19 Vaccine COVID-19 Vaccine 2020-07-19 Com[facility] (Paulino) (Paulino) 10:06:00 [facility] COVID-19 Vaccine COVID-19 Vaccine 2020-07-19 Completed [facility] (Paulino) (Paulino) 10:06:00 [facility] COVID-19 Vaccine COVID-19 Vaccine 2020-07-19 Completed [facility] (Paulino) (Paulino) 10:06:00 [facility] COVID-19 Vaccine COVID-19 Vaccine 2020-07-19 Completed [facility] (Paulino) (Paulino) 10:06:00 [facility] COVID-19 Vaccine COVID-19 Vaccine 2020-07-19 Completed [facility] (Paulino) (Paulino) 10:06:00 [facility] COVID-19 Vaccine COVID-19 Vaccine 2020-07-19 Completed [facility] (Paulino) (Paulino) 10:06:00 [facility] COVID-19 Vaccine COVID-19 Vaccine 2020-07-19 Completed [facility] (Paulino) (Paulino) 10:06:00 [facility] COVID-19 Vaccine COVID-19 Vaccine 2020-07-19 Completed [facility] (Paulino) (Paulino) 10:06:00 [facility] COVID-19 Vaccine COVID-19 Vaccine 2020-07-19 Completed [facility] (Paulino) (Paulino) 10:06:00 [facility] COVID-19 Vaccine COVID-19 Vaccine 2020-07-19 Completed [facility] (Paulino) (Paulino) 10:06:00 [facility] COVID-19 Vaccine COVID-19 Vaccine 2020-07-19 Completed [facility] (Paulino) (Paulino) 10:06:00 [facility] COVID-19 Vaccine COVID-19 Vaccine 2020-07-19 Completed [facility] (Paulino) (Paulino) 10:06:00 [facility] COVID-19 Vaccine COVID-19 Vaccine 2020-07-19 Completed [facility] (Paulino) (Paulino) 10:06:00 [facility] COVID-19 Vaccine COVID-19 Vaccine 2020-07-19 Completed [facility] (Paulino) (Paulino) 10:06:00 [facility] COVID-19 Vaccine COVID-19 Vaccine 2020-07-19 Completed [facility] (Paulino) (Paulino) 10:06:00 [facility] COVID-19 Vaccine COVID-19 Vaccine 2020-07-19 Completed [facility] (Paulino) (Paulino) 10:06:00 [facility] COVID-19 Vaccine COVID-19 Vaccine 2020-07-19 Completed [facility] (Paulino) (Paulino) 10:06:00 [facility] COVID-19 Vaccine COVID-19 Vaccine 2020-07-19 Completed [facility] (Paulino) (Paulino) 10:06:00 [facility] COVID-19 Vaccine COVID-19 Vaccine 2020-07-19 Completed [facility] (Paulino) (Paulino) 10:06:00 [facility] COVID-19 Vaccine COVID-19 Vaccine 2020-07-19 Completed [facility] (Paulino) (Paulino) 10:06:00 [facility] COVID-19 Vaccine COVID-19 Vaccine 2020-07-19 Completed [facility] (Paulino) (Paulino) 10:06:00 [facility] COVID-19 Vaccine COVID-19 Vaccine 2020-07-19 Completed [facility] (Paulino) (Paulino) 10:06:00 [facility] COVID-19 Vaccine COVID-19 Vaccine 2020-07-19 Completed [facility] (Paulino) (Paulino) 10:06:00 [facility] COVID-19 Vaccine COVID-19 Vaccine 2020-07-19 Completed [facility] (Paulino) (Paulino) 10:06:00 [facility] COVID-19 Vaccine COVID-19 Vaccine 2020-07-19 Completed [facility] (Paulino) (Paulino) 10:06:00 [facility] COVID-19 Vaccine COVID-19 Vaccine 2020-07-19 Completed [facility] (Paulino) (Paulino) 10:06:00 [facility] COVID-19 Vaccine COVID-19 Vaccine 2020-07-19 Completed [facility] (Paulino) (Paulino) 10:06:00 [facility] COVID-19 Vaccine COVID-19 Vaccine 2020-07-19 Completed [facility] (Paulino) (Paulino) 10:06:00 [facility] COVID-19 Vaccine COVID-19 Vaccine 2020-07-19 Completed [facility] (Paulino) (Paulino) 10:06:00 [facility] COVID-19 Vaccine COVID-19 Vaccine 2020-07-19 Completed [facility] (Paulino) (Paulino) 10:06:00 [facility] COVID-19 Vaccine COVID-19 Vaccine 2020-07-19 Completed [facility] (Paulino) (Paulino) 10:06:00 [facility] COVID-19 Vaccine COVID-19 Vaccine 2020-07-19 Completed [facility] (Paulino) (Paulino) 10:06:00 [facility] COVID-19 Vaccine COVID-19 Vaccine 2020-07-19 Completed [facility] (Paulino) (Paulino) 10:06:00 [facility] COVID-19 Vaccine COVID-19 Vaccine 2020-07-19 Completed [facility] (Paulino) (Paulino) 10:06:00 [facility] COVID-19 Vaccine COVID-19 Vaccine 2020-07-19 Completed [facility] (Paulino) (Paulino) 10:06:00 [facility] COVID-19 Vaccine COVID-19 Vaccine 2020-07-19 Completed [facility] (Paulino) (Paulino) 10:06:00 [facility] COVID-19 Vaccine COVID-19 Vaccine 2020-07-19 Completed [facility] (Paulino) (Paulino) 10:06:00 [facility] COVID-19 Vaccine COVID-19 Vaccine 2020-07-19 Completed [facility] (Paulino) (Paulino) 10:06:00 [facility] COVID-19 Vaccine COVID-19 Vaccine 2020-07-19 Completed [facility] (Paulino) (Paulino) 10:06:00 [facility] COVID-19 Vaccine COVID-19 Vaccine 2020-07-19 Completed [facility] (Paulino) (Paulino) 10:06:00 [facility] COVID-19 Vaccine COVID-19 Vaccine 2020-07-19 Completed [facility] (Paulino) (Paulino) 10:06:00 [facility] COVID-19 Vaccine COVID-19 Vaccine 2020-07-19 Completed [facility] (Paulino) (Paulino) 10:06:00 [facility] COVID-19 Vaccine COVID-19 Vaccine 2020-07-19 Completed [facility] (Paulino) (Paulino) 10:06:00 [facility] COVID-19 Vaccine COVID-19 Vaccine 2020-07-19 Completed [facility] (Paulino) (Paulino) 10:06:00 [facility] COVID-19 Vaccine COVID-19 Vaccine 2020-07-19 Completed [facility] (Paulino) (Paulino) 10:06:00 [facility] COVID-19 Vaccine COVID-19 Vaccine 2020-07-19 Completed [facility] (Paulino) (Paulino) 10:06:00 [facility] COVID-19 Vaccine COVID-19 Vaccine 2020-07-19 Completed [facility] (Paulino) (Paulino) 10:06:00 [facility] COVID-19 Vaccine COVID-19 Vaccine 2020-07-19 Completed [facility] (Paulino) (Paulino) 10:06:00 [facility] Flucelvax - single Flucelvax - single 2020-03-11 Completed [facility] - dose syringe dose syringe 15:18:00 [facility] Flucelvax - single Flucelvax - single 2020-03-11 Completed [facility] - dose syringe dose syringe 15:18:00 [facility] Flucelvax - single Flucelvax - single 2020-03-11 Completed [facility] - dose syringe dose syringe 15:18:00 [facility] Flucelvax - single Flucelvax - single 2020-03-11 Completed [facility] - dose syringe dose syringe 15:18:00 [facility] Flucelvax - single Flucelvax - single 2020-03-11 Completed [facility] - dose syringe dose syringe 15:18:00 [facility] Flucelvax - single Flucelvax - single 2020-03-11 Completed [facility] - dose syringe dose syringe 15:18:00 [facility] Flucelvax - single Flucelvax - single 2020-03-11 Completed [facility] - dose syringe dose syringe 15:18:00 [facility] Flucelvax - single Flucelvax - single 2020-03-11 Completed [facility] - dose syringe dose syringe 15:18:00 [facility] Flucelvax - single Flucelvax - single 2020-03-11 Completed [facility] - dose syringe dose syringe 15:18:00 [facility] Flucelvax - single Flucelvax - single 2020-03-11 Completed [facility] - dose syringe dose syringe 15:18:00 [facility] Flucelvax - single Flucelvax - single 2020-03-11 Completed [facility] - dose syringe dose syringe 15:18:00 [facility] Flucelvax - single Flucelvax - single 2020-03-11 Completed [facility] - dose syringe dose syringe 15:18:00 [facility] Flucelvax - single Flucelvax - single 2020-03-11 Completed [facility] - dose syringe dose syringe 15:18:00 [facility] Flucelvax - single Flucelvax - single 2020-03-11 Completed [facility] - dose syringe dose syringe 15:18:00 [facility] Flucelvax - single Flucelvax - single 2020-03-11 Completed [facility] - dose syringe dose syringe 15:18:00 [facility] Flucelvax - single Flucelvax - single 2020-03-11 Completed [facility] - dose syringe dose syringe 15:18:00 [facility] Flucelvax - single Flucelvax - single 2020-03-11 Completed [facility] - dose syringe dose syringe 15:18:00 [facility] Flucelvax - single Flucelvax - single 2020-03-11 Completed [facility] - dose syringe dose syringe 15:18:00 [facility] Flucelvax - single Flucelvax - single 2020-03-11 Completed [facility] - dose syringe dose syringe 15:18:00 [facility] Flucelvax - single Flucelvax - single 2020-03-11 Completed [facility] - dose syringe dose syringe 15:18:00 [facility] Flucelvax - single Flucelvax - single 2020-03-11 Completed [facility] - dose syringe dose syringe 15:18:00 [facility] Flucelvax - single Flucelvax - single 2020-03-11 Completed [facility] - dose syringe dose syringe 15:18:00 [facility] Flucelvax - single Flucelvax - single 2020-03-11 Completed [facility] - dose syringe dose syringe 15:18:00 [facility] Flucelvax - single Flucelvax - single 2020-03-11 Completed [facility] - dose syringe dose syringe 15:18:00 [facility] Flucelvax - single Flucelvax - single 2020-03-11 Completed [facility] - dose syringe dose syringe 15:18:00 [facility] Flucelvax - single Flucelvax - single 2020-03-11 Completed [facility] - dose syringe dose syringe 15:18:00 [facility] Flucelvax - single Flucelvax - single 2020-03-11 Completed [facility] - dose syringe dose syringe 15:18:00 [facility] Flucelvax - single Flucelvax - single 2020-03-11 Completed [facility] - dose syringe dose syringe 15:18:00 [facility] Flucelvax - single Flucelvax - single 2020-03-11 Completed [facility] - dose syringe dose syringe 15:18:00 [facility] Flucelvax - single Flucelvax - single 2020-03-11 Completed [facility] - dose syringe dose syringe 15:18:00 [facility] Flucelvax - single Flucelvax - single 2020-03-11 Completed [facility] - dose syringe dose syringe 15:18:00 [facility] Flucelvax - single Flucelvax - single 2020-03-11 Completed [facility] - dose syringe dose syringe 15:18:00 [facility] Flucelvax - single Flucelvax - single 2020-03-11 Completed [facility] - dose syringe dose syringe 15:18:00 [facility] Flucelvax - single Flucelvax - single 2020-03-11 Completed [facility] - dose syringe dose syringe 15:18:00 [facility] Flucelvax - single Flucelvax - single 2020-03-11 Completed [facility] - dose syringe dose syringe 15:18:00 [facility] Flucelvax - single Flucelvax - single 2020-03-11 Completed [facility] - dose syringe dose syringe 15:18:00 [facility] Flucelvax - single Flucelvax - single 2020-03-11 Completed [facility] - dose syringe dose syringe 15:18:00 [facility] Flucelvax - single Flucelvax - single 2020-03-11 Completed [facility] - dose syringe dose syringe 15:18:00 [facility] Flucelvax - single Flucelvax - single 2020-03-11 Completed [facility] - dose syringe dose syringe 15:18:00 [facility] Flucelvax - single Flucelvax - single 2020-03-11 Completed [facility] - dose syringe dose syringe 15:18:00 [facility] Flucelvax - single Flucelvax - single 2020-03-11 Completed [facility] - dose syringe dose syringe 15:18:00 [facility] Flucelvax - single Flucelvax - single 2020-03-11 Completed [facility] - dose syringe dose syringe 15:18:00 [facility] Flucelvax - single Flucelvax - single 2020-03-11 Completed [facility] - dose syringe dose syringe 15:18:00 [facility] Flucelvax - single Flucelvax - single 2020-03-11 Completed [facility] - dose syringe dose syringe 15:18:00 [facility] Flucelvax - single Flucelvax - single 2020-03-11 Completed [facility] - dose syringe dose syringe 15:18:00 [facility] Flucelvax - single Flucelvax - single 2020-03-11 Completed [facility] - dose syringe dose syringe 15:18:00 [facility] Flucelvax - single Flucelvax - single 2020-03-11 Completed [facility] - dose syringe dose syringe 15:18:00 [facility] Flucelvax - single Flucelvax - single 2020-03-11 Completed [facility] - dose syringe dose syringe 15:18:00 [facility] Bupivicaine Coinjock Bupivicaine Coinjock 2019-11-03 Completed [facility] - 08:21:00 [facility] Kenalog Kenalog 2019-11-03 Completed [facility] - (Triamcinolone) (Triamcinolone) 08:21: [facility] Bupivicaine Coinjock Bupivicaine Coinjock 2019-11-03 Completed [facility] - 08:21: [facility] Kenalog Kenalog 2019-11-03 Completed [facility] - (Triamcinolone) (Triamcinolone) 08:21: [facility] Bupivicaine Coinjock Bupivicaine Coinjock 2019-11-03 Completed [facility] - 08:21:00 [facility] Kenalog Kenalog 2019-11-03 Completed [facility] - (Triamcinolone) (Triamcinolone) 08:21: [facility] Bupivicaine Coinjock Bupivicaine Coinjock 2019-11-03 Completed [facility] - 08:21: [facility] Kenalog Kenalog 2019-11-03 Completed [facility] - (Triamcinolone) (Triamcinolone) 08:21: [facility] Bupivicaine Coinjock Bupivicaine Coinjock 2019-11-03 Completed [facility] - 08:21:00 [facility] Kenalog Kenalog 2019-11-03 Completed [facility] - (Triamcinolone) (Triamcinolone) 08:21: [facility] Bupivicaine Coinjock Bupivicaine Coinjock 2019-11-03 Completed [facility] - 08:21:00 [facility] Kenalog Kenalog 2019-11-03 Completed [facility] - (Triamcinolone) (Triamcinolone) 08:21: [facility] Bupivicaine Coinjock Bupivicaine Coinjock 2019-11-03 Completed [facility] - 08:21:00 [facility] Kenalog Kenalog 2019-11-03 Completed [facility] - (Triamcinolone) (Triamcinolone) 08:21:00 [facility] FLUZONE QUAD 2019-03-02 Completed [facility]:00:00 [facility] Pneumococcal 2019-03-02 Completed [facility] Polysaccharide 00:00:00 [facility] Pneumovax (PPSV23) Pneumovax (PPSV23) 2019-02-17 Completed [facility] - 08:51:00 [facility] Pneumovax (PPSV23) Pneumovax (PPSV23) 2019-02-17 Completed [facility] - 08:51:00 [facility] Pneumovax (PPSV23) Pneumovax (PPSV23) 2019-02-17 Completed [facility] - 08:51:00 [facility] Pneumovax (PPSV23) Pneumovax (PPSV23) 2019-02-17 Completed [facility] - 08:51:00 [facility] Pneumovax (PPSV23) Pneumovax (PPSV23) 2019-02-17 Completed [facility] - 08:51:00 [facility] Pneumovax (PPSV23) Pneumovax (PPSV23) 2019-02-17 Completed [facility] - 08:51:00 [facility] Pneumovax (PPSV23) Pneumovax (PPSV23) 2019-02-17 Completed [facility] - 08:51:00 [facility] Pneumovax (PPSV23) Pneumovax (PPSV23) 2019-02-17 Completed [facility] - 08:51:00 [facility] Pneumovax (PPSV23) Pneumovax (PPSV23) 2019-02-17 Completed [facility] - 08:51:00 [facility] Pneumovax (PPSV23) Pneumovax (PPSV23) 2019-02-17 Completed [facility] - 08:51:00 [facility] Pneumovax (PPSV23) Pneumovax (PPSV23) 2019-02-17 Completed [facility] - 08:51:00 [facility] Pneumovax (PPSV23) Pneumovax (PPSV23) 2019-02-17 Completed [facility] - 08:51:00 [facility] Pneumovax (PPSV23) Pneumovax (PPSV23) 2019-02-17 Completed [facility] - 08:51:00 [facility] Pneumovax (PPSV23) Pneumovax (PPSV23) 2019-02-17 Completed [facility] - 08:51:00 [facility] Pneumovax (PPSV23) Pneumovax (PPSV23) 2019-02-17 Completed [facility] - 08:51:00 [facility] Pneumovax (PPSV23) Pneumovax (PPSV23) 2019-02-17 Completed [facility] - 08:51:00 [facility] Pneumovax (PPSV23) Pneumovax (PPSV23) 2019-02-17 Completed [facility] - 08:51:00 [facility] Pneumovax (PPSV23) Pneumovax (PPSV23) 2019-02-17 Completed [facility] - 08:51:00 [facility] Pneumovax (PPSV23) Pneumovax (PPSV23) 2019-02-17 Completed [facility] - 08:51:00 [facility] Pneumovax (PPSV23) Pneumovax (PPSV23) 2019-02-17 Completed [facility] - 08:51:00 [facility] Pneumovax (PPSV23) Pneumovax (PPSV23) 2019-02-17 Completed [facility] - 08:51:00 [facility] Pneumovax (PPSV23) Pneumovax (PPSV23) 2019-02-17 Completed [facility] - 08:51:00 [facility] Pneumovax (PPSV23) Pneumovax (PPSV23) 2019-02-17 Completed [facility] - 08:51:00 [facility] Pneumovax (PPSV23) Pneumovax (PPSV23) 2019-02-17 Completed [facility] - 08:51:00 [facility] Pneumovax (PPSV23) Pneumovax (PPSV23) 2019-02-17 Completed [facility] - 08:51:00 [facility] Pneumovax (PPSV23) Pneumovax (PPSV23) 2019-02-17 Completed [facility] - 08:51:00 [facility] Pneumovax (PPSV23) Pneumovax (PPSV23) 2019-02-17 Completed [facility] - 08:51:00 [facility] Pneumovax (PPSV23) Pneumovax (PPSV23) 2019-02-17 Completed [facility] - 08:51:00 [facility] Pneumovax (PPSV23) Pneumovax (PPSV23) 2019-02-17 Completed [facility] - 08:51:00 [facility] Pneumovax (PPSV23) Pneumovax (PPSV23) 2019-02-17 Completed [facility] - 08:51:00 [facility] Pneumovax (PPSV23) Pneumovax (PPSV23) 2019-02-17 Completed [facility] - 08:51:00 [facility] Pneumovax (PPSV23) Pneumovax (PPSV23) 2019-02-17 Completed [facility] - 08:51:00 [facility] Pneumovax (PPSV23) Pneumovax (PPSV23) 2019-02-17 Completed [facility] - 08:51:00 [facility] Pneumovax (PPSV23) Pneumovax (PPSV23) 2019-02-17 Completed [facility] - 08:51:00 [facility] Pneumovax (PPSV23) Pneumovax (PPSV23) 2019-02-17 Completed [facility] - 08:51:00 [facility] Pneumovax (PPSV23) Pneumovax (PPSV23) 2019-02-17 Completed [facility] - 08:51:00 [facility] Pneumovax (PPSV23) Pneumovax (PPSV23) 2019-02-17 Completed [facility] - 08:51:00 [facility] Pneumovax (PPSV23) Pneumovax (PPSV23) 2019-02-17 Completed [facility] - 08:51:00 [facility] Pneumovax (PPSV23) Pneumovax (PPSV23) 2019-02-17 Completed [facility] - 08:51:00 [facility] Pneumovax (PPSV23) Pneumovax (PPSV23) 2019-02-17 Completed [facility] - 08:51:00 [facility] Pneumovax (PPSV23) Pneumovax (PPSV23) 2019-02-17 Completed [facility] - 08:51:00 [facility] Pneumovax (PPSV23) Pneumovax (PPSV23) 2019-02-17 Completed [facility] - 08:51:00 [facility] Pneumovax (PPSV23) Pneumovax (PPSV23) 2019-02-17 Completed [facility] - 08:51:00 [facility] Pneumovax (PPSV23) Pneumovax (PPSV23) 2019-02-17 Completed [facility] - 08:51:00 [facility] Pneumovax (PPSV23) Pneumovax (PPSV23) 2019-02-17 Completed [facility] - 08:51:00 [facility] Pneumovax (PPSV23) Pneumovax (PPSV23) 2019-02-17 Completed [facility] - 08:51:00 [facility] Pneumovax (PPSV23) Pneumovax (PPSV23) 2019-02-17 Completed [facility] - 08:51:00 [facility] Pneumovax (PPSV23) Pneumovax (PPSV23) 2019-02-17 Completed [facility] - 08:51:00 [facility] FluAD FluAD 2019-02-17 Completed [facility] - 08:50:00 [facility] FluAD FluAD 2019-02-17 Completed [facility] - 08:50:00 [facility] FluAD FluAD 2019-02-17 Completed [facility] - 08:50:00 [facility] FluAD FluAD 2019-02-17 Completed [facility] - 08:50:00 [facility] FluAD FluAD 2019-02-17 Completed [facility] - 08:50:00 [facility] FluAD FluAD 2019-02-17 Completed [facility] - 08:50:00 [facility] FluAD FluAD 2019-02-17 Completed [facility] - 08:50:00 [facility] FluAD FluAD 2019-02-17 Completed [facility] - 08:50:00 [facility] FluAD FluAD 2019-02-17 Completed [facility] - 08:50:00 [facility] FluAD FluAD 2019-02-17 Completed [facility] - 08:50:00 [facility] FluAD FluAD 2019-02-17 Completed [facility] - 08:50:00 [facility] FluAD FluAD 2019-02-17 Completed [facility] - 08:50:00 [facility] FluAD FluAD 2019-02-17 Completed [facility] - 08:50:00 [facility] FluAD FluAD 2019-02-17 Completed [facility] - 08:50:00 [facility] FluAD FluAD 2019-02-17 Completed [facility] - 08:50:00 [facility] FluAD FluAD 2019-02-17 Completed [facility] - 08:50:00 [facility] FluAD FluAD 2019-02-17 Completed [facility] - 08:50:00 [facility] FluAD FluAD 2019-02-17 Completed [facility] - 08:50:00 [facility] FluAD FluAD 2019-02-17 Completed [facility] - 08:50:00 [facility] FluAD FluAD 2019-02-17 Completed [facility] - 08:50:00 [facility] FluAD FluAD 2019-02-17 Completed [facility] - 08:50:00 [facility] FluAD FluAD 2019-02-17 Completed [facility] - 08:50:00 [facility] FluAD FluAD 2019-02-17 Completed [facility] - 08:50:00 [facility] FluAD FluAD 2019-02-17 Completed [facility] - 08:50:00 [facility] FluAD FluAD 2019-02-17 Completed [facility] - 08:50:00 [facility] FluAD FluAD 2019-02-17 Completed [facility] - 08:50:00 [facility] FluAD FluAD 2019-02-17 Completed [facility] - 08:50:00 [facility] FluAD FluAD 2019-02-17 Completed [facility] - 08:50:00 [facility] FluAD FluAD 2019-02-17 Completed [facility] - 08:50:00 [facility] FluAD FluAD 2019-02-17 Completed [facility] - 08:50:00 [facility] FluAD FluAD 2019-02-17 Completed [facility] - 08:50:00 [facility] FluAD FluAD 2019-02-17 Completed [facility] - 08:50:00 [facility] FluAD FluAD 2019-02-17 Completed [facility] - 08:50:00 [facility] FluAD FluAD 2019-02-17 Completed [facility] - 08:50:00 [place] [facility] FluAD FluAD 2019-02-17 [facility] 08:50:00 [facility] FluAD FluAD 2019-02-17 Completed [facility] 08:50:00 [facility] FluAD FluAD 2019-02-17 Completed [facility] 08:50:00 [facility] FluAD FluAD 2019-02-17 Completed [facility] - 08:50:00 [facility] FluAD FluAD 2019-02-17 Completed [facility] 08:50:00 [facility] FluAD FluAD 2019-02-17 Completed [facility] 08:50:00 [facility] FluAD FluAD 2019-02-17 Completed [facility] 08:50:00 [facility] FluAD FluAD 2019-02-17 Completed [facility] - 08:50:00 [facility] FluAD FluAD 2019-02-17 Completed [facility] 08:50:00 [facility] FluAD FluAD 2019-02-17 Completed [facility] 08:50:00 [facility] FluAD FluAD 2019-02-17 Completed [facility] 08:50:00 [facility] FluAD FluAD 2019-02-17 Completed [facility] 08:50:00 [facility] FluAD FluAD 2019-02-17 Completed [facility] 08:50:00 [facility] FluAD FluAD 2019-02-17 Completed [facility] 08:50:00 [facility] Influenza, 2018-02-21 [facility]pleted [facility] Influenza, 2018-02-21 Completed [facility] Vaccine<FLUCELVAX>(Mu 00:00:00 lti-Dose) Pneumococcal 2017-10-29 Completed [facility] Polysaccharide 00:[facility]:00 Hospital PPV 23 (Pneumococcal 2017-10-29 Completed [facility] Polysaccharide 23 00:00:00 Valent) Influenza (IM) 2017-04-02 Completed [facility] Preservative Free 00:00:00 Hospita l Influenza Vaccine, 2017-04-02 Completed [facility] Seasonal, Injectable 00:00:00 Vital Signs Vital Name Observation Time Observation Value Comments Source height 2021-12-12 10:30:00 69 [in_i] Common [facility] weight 2021-12-12 10:30:00 284.2 [lb_av] Common [facility] temperature 2021-12-12 10:30:00 97.4 [degF] Common [facility] bmi 2021-12-12 10:30:00 41.96 kg/m2 [facility] oximetry 2021-12-12 10:30:00 96 % [facility] respiratory rate 2021-12-12 10:30:00 18 /min Comm on [facility] blood pressure 2021-12-12 10:30:00 138 mm[Hg] Common [facility] - systolic [facility] blood pressure 2021-12-12 10:30:00 70 mm[Hg] Common [facility] - diastolic [facility] height 2021-11-16 10:20:00 69 [in_i] Common [facility] weight 2021-11-16 10:20:00 279 [lb_av] [facility] temperature 2021-11-16 10:20:00 98.5 [degF] [facility] bmi 2021-11-16 10:20:00 41.2 kg/m2 [facility] oximetry 2021-11-16 10:20:00 93 % [facility] respiratory rate 2021-11-16 10:20:00 17 /min Comm on [facility] blood pressure 2021-11-16 10:20:00 130 mm[Hg] Common [facility] - systolic [facility] blood pressure 2021-11-16 10:20:00 82 mm[Hg] Common [facility] - diastolic [facility] height 2021-11-07 13:00:00 71 [in_i] Common [facility] weight 2021-11-07 13:00:00 280 [lb_av] [facility] temperature 2021-11-07 13:00:00 101 [degF] Common [facility] bmi 2021-11-07 13:00:00 39.05 kg/m2 [facility] height 2021-10-17 10:00:00 71 [in_i] Common [facility] weight 2021-10-17 10:00:00 282 [lb_av] [facility] temperature 2021-10-17 10:00:00 98.2 [degF] [facility] bmi 2021-10-17 10:00:00 39.33 kg/m2 [facility] oximetry 2021-10-17 10:00:00 96 % [facility] respiratory rate 2021-10-17 10:00:00 18 /min Comm on [facility] blood pressure 2021-10-17 10:00:00 128 mm[Hg] [facility] systolic [facility] blood pressure 2021-10-17 10:00:00 72 mm[Hg] Common [facility] diastolic [facility] height 2021-09-07 16:00:00 71 [in_i] [facility] weight 2021-09-07 16:00:00 275.4 [lb_av] Common [facility] temperature 2021-09-07 16:00:00 98.2 [degF] Common [facility] bmi 2021-09-07 16:00:00 38.41 kg/m2 [facility] oximetry 2021-09-07 16:00:00 98 % [facility] respiratory rate 2021-09-07 16:00:00 18 /min Comm on [facility] blood pressure 2021-09-07 16:00:00 137 mm[Hg] [facility] - systolic [facility] blood pressure 2021-09-07 16:00:00 64 mm[Hg] Common [facility] - diastolic [facility] height 2021-09-05 11:00:00 71 [in_i] Common [facility] weight 2021-09-05 11:00:00 276.0 [lb_av] Common [facility] temperature 2021-09-05 11:00:00 97.9 [degF] Common [facility] bmi 2021-09-05 11:00:00 38.49 kg/m2 [facility] oximetry 2021-09-05 11:00:00 92 % [facility] respiratory rate 2021-09-05 11:00:00 16 /min Comm on [facility] blood pressure 2021-09-05 11:00:00 128 mm[Hg] Common [facility] - systolic [facility] blood pressure 2021-09-05 11:00:00 80 mm[Hg] Common [facility] - diastolic [facility] height 2021-09-05 11:20:00 71 [in_i] Common [facility] weight 2021-09-05 11:20:00 276.0 [lb_av] Common [facility] temperature 2021-09-05 11:20:00 97.9 [degF] [facility] bmi 2021-09-05 11:20:00 38.49 kg/m2 Common [facility] oximetry 2021-09-05 11:20:00 92 % Common [facility] respiratory rate 2021-09-05 11:20:00 16 /min Comm on [facility] blood pressure 2021-09-05 11:20:00 128 mm[Hg] Common [facility] - systolic [facility] blood pressure 2021-09-05 11:20:00 80 mm[Hg] [facility] - diastolic [facility] height 2021-07-25 08:30:00 71 [in_i] [facility] - [facility] weight 2021-07-25 08:30:00 287 [lb_av] [facility] temperature 2021-07-25 08:30:00 98.2 [degF] [facility] - [facility] bmi 2021-07-25 08:30:00 40.02 kg/m2 [facility] oximetry 2021-07-25 08:30:00 96 % [facility] respiratory rate 2021-07-25 08:30:00 18 /min Comm on [facility] - [facility] blood pressure 2021-07-25 08:30:00 144 mm[Hg] Common [facility] - systolic [facility] blood pressure 2021-07-25 08:30:00 80 mm[Hg] [facility] - diastolic [facility] height 2021-05-24 10:30:00 71 [in_i] [facility] weight 2021-05-24 10:30:00 286 [lb_av] [facility] bmi 2021-05-24 10:30:00 39.88 kg/m2 [facility] blood pressure 2021-05-24 10:30:00 130 mm[Hg] [facility] - systolic [facility] blood pressure 2021-05-24 10:30:00 82 mm[Hg] [facility] - diastolic [facility] height 2021-04-24 08:30:00 71 [in_i] Common [facility] weight 2021-04-24 08:30:00 280 [lb_av] [facility] S [facility]irit [facility] temperature 2021-04-24 08:30:00 101 [degF] [facility] bmi 2021-04-24 08:30:00 39.05 kg/m2 [facility] blood pressure 2021-04-24 08:30:00 132 mm[Hg] [facility] - systolic [facility] blood pressure 2021-04-24 08:30:00 76 mm[Hg] [facility] - diastolic [facility] height 2021-02-28 09:00:00 71 [in_i] [facility] - [facility] weight 2021-02-28 09:00:00 288 [lb_av] [facility] - [facility] bmi 2021-02-28 09:00:00 40.16 kg/m2 [facility] - [facility] blood pressure 2021-02-28 09:00:00 144 mm[Hg] [facility] - systolic [facility] blood pressure 2021-02-28 09:00:00 86 mm[Hg] [facility] - diastolic [facility] height 2021-02-21 13:40:00 71 [in_i] [facility] - [facility] weight 2021-02-21 13:40:00 284.0 [lb_av] [facility] bmi 2021-02-21 13:40:00 39.61 kg/m2 [facility] Procedures This patient has no known procedures. Plan of Care Planned Activity Planned Date Details Comments Source Future Scheduled 2022-04-19 COVID-19 VACCINE (#1) [facility] Test 13:06:21 [code = COVID-19 VACCINE (#1)] Future Scheduled 2022-04-19 DIABETES: RETINAL EYE Me [facility] Test 13:06:21 EXAM [code = DIABETES: RETINAL EYE EXAM] Future Scheduled 2022-04-[address] [facility] Test 13:06:21 [code = DIABETIC FOOT EXAM] Future Scheduled 2022-04-[address] [facility] Test 13:06:21 [code = URINE MICROALBUMIN] Future Scheduled 2022-04-19 Hepatitis C screening [facility] Test 13:06:21 (procedure) [code = 883156718] Future Scheduled 2022-04-19 COLONOSCOPY SCREENING [facility] Test 13:06:21 [code = COLONOSCOPY SCREENING] Future Scheduled 2022-04-19 SHINGLES VACCINES (1 [facility] Test 13:06:21 of 2) [code = SHINGLES VACCINES (1 of 2)] Future Scheduled 2022-04-19 Pneumococcal Vaccine: [facility] Test 13:06:21 Pediatrics (0 to 5 Years) and At-Risk Patients (6 to 64 Years) (2 - PCV) [code = Pneumococcal Vaccine: Pediatrics (0 to 5 Years) and At-Risk Patients (6 to 64 Years) (2 - PCV)] Future Scheduled 2022-04-19 INFLUENZA VACCINE [facility] Test 13:06:21 [code = INFLUENZA VACCINE] Future Scheduled 2022-02-03 IMM Influenza [facility]al [facility] 00:00:00 (>/= 19 yrs) [code = IMM Influenza Seasonal (>/= 19 yrs)] Future Scheduled 1961-06-27 COVID-19 Vaccine (#1) [facility] Test 00:00:00 [code = COVID-19 Vaccine (#1)] Encounters Start End Encounter Admission Attending Care Care Encounter Source Date/Time Date/Time Type Type Clinicians Facility Department ID 2021-12-12 Outpatient Benites, [facility] [id number] Common 11:04:01 [facility] 2021-11-16 Outpatient Benites, [facility] [id number] Common 10:05:01 Janet [facility] 2021-11-07 Out[facility], [facility] [id number] Common 08:13:01 Janet [facility] 2021-10-16 Outpatient Benites, [facility] [id number] Common 13:55:02 Janet [facility] 2021-09-26 Outpatient Benites, [facility] [id number] Common 09:29:01 Janet [facility] 2021-07-20 [facility] [id number] Common 08:48:02 [facility] 2021-05-31 [facility] [id number] Common 14:37:33 Tom [facility] 2021-05-31 Outpatient Brandt, STLMLC ST[facility] [id number] Common 14:27:08 Tom [id number] [facility] 2021-05-31 Outpatient Brandt, STLMLC ST[facility] [id number] Common 14:04:56 Tom [id number] [facility] 2021-05-31 Outpatient Brandt, STLMLC ST[facility] [id number] Common 13:57:20 Tom [id number] [facility] 2021-05-31 Outpatient Brandt, STLMLC ST[facility] [id number] Common 13:45:34 Tom [id number] [facility] 2021-05-31 Outpatient Brandt, STLMLC ST[facility] [id number] Common 13:18:17 Tom [id number] [facility] 2021-05-31 Outpatient Brandt, STLMLC STL[facility]C [id number] Common 12:40:36 Tom [id number] [facility] 2021-05-31 Outpatient Brandt, STLMLC STL[facility]C [id number] Common 12:37:42 Tom [id number] [facility] 2021-05-31 Outpatient Brandt, STLMLC ST[facility] [id number] Common 12:27:44 Tom [id number] [facility] 2021-05-31 Outpatient Brandt, STLMLC [facility] [id number] Common 12:21:15 Tom [id number] [facility] 2021-05-31 Outpatient Brandt, STLMLC ST[facility] [id number] Common 12:13:38 Tom [id number] [facility] 2021-05-31 Outpatient Brandt, STLMLC STL[facility]C [id number] Common 12:13:19 Tom [id number] [facility] 2021-05-31 Outpatient Brandt, STLMLC STLMLC [id number] Common 12:12:21 Tom [id number] [facility] 2021-05-31 Outpatient Brandt, STLMLC STL[facility]C [id number] Common 11:57:35 Tom [id number] [facility] 2021-05-31 Outpatient Brandt, STLMLC STL[facility]C [id number] Common 11:44:18 Tom [id number] [facility] 2021-05-31 Outpatient Brandt, STLMLC STL[facility]C [id number] Common 11:43:46 Tom [id number] [facility] 2021-05-31 Outpatient Brandt, STLMLC STLC [id number] Common 11:27:07 Tom [id number] [facility] 2021-05-31 Outpatient Brandt, STLMLC STLMLC [id number] Common 11:24:29 Tom [id number] [facility] 2021-05-31 Outpatient Brandt, STLMLC STLC [id number] Common 11:23:22 Tom [id number] [facility] 2022-02-14 2022-02-14 (TEL) STLC ST[facility] [id number] Co mmon 00:00:00 00:00:00 [facility] 2022-01-12 2022-01-12 CAV Elsa [id number] CLAC [id number] [facility] 13:30:00 14:30:00 Ayo [id number] [place] [id number] 2022-01-12 2022-01-12 (TEL) STLC ST[facility] [id number] Co mmon 00:00:00 00:00:00 [facility] 2022-01-10 2022-01-10 [place] [id number] [facility] 00:00:00 00:00:00 0907 [facility] 2022-01-10 2022-01-10 (TEL) STLMLC STLC [id number] Co mmon 00:00:00 00:00:00 [facility] 2022-01-04 2022-01-04 (TEL) STLMLC STLMLC [id number] Co mmon 00:00:00 00:00:00 [facility] 2022-01-04 2022-01-04 (TEL) STLMLC STLMLC [id number] Co mmon 00:00:00 00:00:00 [facility] 2022-01-01 2022-01-01 (TEL) STLMLC STLMLC [id number] Co mmon 00:00:00 00:00:00 [facility] 2021-12-18 2021-12-18 (TEL) STLMLC STLMLC [id number] Co mmon 00:00:00 00:00:00 [facility] 2021-12-12 2021-12-12 OFFICE STLMLC STLMLC [id number] Co mmon 00:00:00 00:00:00 VISIT [facility] ESTAB PT - CHI LEVEL 5 [facility] 2021-11-29 2021-11-29 (TEL) STLMLC STLMLC [id number] Co mmon 00:00:00 00:00:00 [facility] 2021-11-17 2021-11-17 Outpatient Williams_V DMG DMG [id number] 08:17:00 08:17:00 0715 [facility] 2021-11-16 2021-11-16 OFFICE STLMLC STLMLC [id number] Co mmon 00:00:00 00:00:00 VISIT [facility] PT - CHI LEVEL 4 [facility] 2021-11-07 2021-11-07 OFFICE STLMLC STLMLC [id number] Co mmon 00:00:00 00:00:00 VISIT EST Spir it PT LEVEL 3 - CHI [facility] 2021-11-07 2021-11-07 (TEL) STLMLC STLMLC [id number] Co mmon 00:00:00 00:00:00 [facility] 2021-10-17 2021-10-17 OFFICE STLMLC STLMLC [id number] Co mmon 00:00:00 00:00:00 VISIT [facility] ESTAB PT - CHI LEVEL 4 [facility] 2021-10-13 2021-10-13 (TEL) STLMLC STLMLC [id number] Co mmon 00:00:00 00:00:00 [facility] 2021-10-12 2021-10-12 (TEL) STLMLC STLMLC [id number] Co mmon 00:00:00 00:00:00 [facility] 2021-09-27 2021-09-27 (TEL) STLMLC STLMLC [id number] Co mmon 00:00:00 00:00:00 [facility] 2021-09-27 2021-09-27 (TEL) STLMLC STLMLC [id number] Co mmon 00:00:00 00:00:00 [facility] 2021-09-19 2021-09-19 (TEL) STLMLC STLMLC [id number] Co mmon 00:00:00 00:00:00 [facility] 2021-09-07 2021-09-07 OFFICE STLMLC STLMLC [id number] Co mmon 00:00:00 00:00:00 VISIT EST Spir it PT LEVEL 3 - CHI [facility] 2021-09-05 2021-09-05 OFFICE STLMLC STLMLC [id number] Co mmon 00:00:00 00:00:00 VISIT [facility] ESTAB PT - CHI LEVEL 4 [facility] 2021-09-05 2021-09-05 SUB ANNUAL STLMLC STLMLC [id number] Common 00:00:00 00:00:00 MCR [facility] WELLNESS - CHI VISIT [facility] 2021-08-16 2021-08-16 (TEL) STLMLC STLMLC [id number] Co mmon 00:00:00 00:00:00 [facility] 2021-08-03 2021-08-03 (TEL) STLMLC STLMLC [id number] Co mmon 00:00:00 00:00:00 [facility] 2021-07-25 2021-07-25 OFFICE STLMLC STLMLC [id number] Co mmon 00:00:00 00:00:00 VISIT NEW Spir it PT LEVEL 5 - CHI [facility] 2021-07-19 2021-07-19 CAV Nila [id number]. [id number]. [facility] [id number] [facility] 16:30:00 17:30:00 Ayo [id number]. [id number] [facility] [id number] 2021-07-19 2021-07-19 Outpatient Williams_V DMG DMG [id number] 02:02:00 02:02:00 0316 [facility] 2021-07-18 2021-07-18 Outpatient Williams_V DMG DMG [id number] 05:44:00 05:44:00 0315 [facility] 2021-07-06 2021-07-06 (TEL) STLMLC STLMLC [id number] Co mmon 00:00:00 00:00:00 [facility] 2021-07-05 2021-07-05 (TEL) STLMLC STLMLC [id number] Co mmon 00:00:00 00:00:00 [facility] 2021-06-29 2021-06-29 (TEL) STLMLC STLMLC [id number] Co mmon 00:00:00 00:00:00 [facility] 2021-06-13 2021-06-13 (TEL) STLMLC STLMLC [id number] Co mmon 00:00:00 00:00:00 [facility] 2021-06-07 2021-06-07 (TEL) STLMLC STLMLC [id number] Co mmon 00:00:00 00:00:00 [facility] 2021-06-06 2021-06-06 (TEL) STLMLC STLMLC [id number] Co mmon 00:00:00 00:00:00 [facility] 2021-06-05 2021-06-05 (TEL) STLMLC STLMLC [id number] Co mmon 00:00:00 00:00:00 [facility] 2021-05-30 2021-05-30 (TEL) STLMLC STLMLC [id number] Co mmon 00:00:00 00:00:00 [facility] 2021-05-29 2021-05-29 (TEL) STLMLC STLMLC [id number] Co mmon 00:00:00 00:00:00 [facility] 2021-05-24 2021-05-24 OFFICE STLMLC STLMLC [id number] Co mmon 00:00:00 00:00:00 VISIT EST Spir it PT LEVEL 3 [facility] 2021-05-08 2021-05-08 (TEL) STLMLC STLMLC [id number] Co mmon 00:00:00 00:00:00 [facility] 2021-04-24 2021-04-24 (TEL) STLMLC STLMLC [id number] Co mmon 00:00:00 00:00:00 [facility] 2021-04-24 2021-04-24 OFFICE STLMLC STLMLC [id number] Co mmon 00:00:00 00:00:00 VISIT EST Spir it PT LEVEL 3 [facility] 2021-04-03 2021-04-03 (TEL) STLMLC STLMLC [id number] Co mmon 00:00:00 00:00:00 [facility] 2021-03-28 2021-03-28 (TEL) STLMLC STLMLC [id number] Co mmon 00:00:00 00:00:00 [facility] 2021-03-20 2021-03-20 (TEL) STLMLC STLMLC [id number] Co mmon 00:00:00 00:00:00 [facility] 2021-03-17 2021-03-17 (TEL) STLMLC STLMLC [id number] Co mmon 00:00:00 00:00:00 [facility] 2021-02-28 2021-02-28 OFFICE STLMLC STLMLC [id number] Co mmon 00:00:00 00:00:00 VISIT [facility] PT [facility] LEVEL 4 [facility] 2021-02-21 2021-02-21 (TEL) STLMLC STLMLC [id number] Co mmon 00:00:00 00:00:00 [facility] 2021-02-21 2021-02-21 OL DIG E/M STLMLC STLMLC [id number] Common 00:00:00 00:00:00 [facility] 11-20 Spir it MIN [facility] 2021-02-15 2021-02-15 (TEL) STLMLC STLMLC [id number] Co mmon 00:00:00 00:00:00 [facility] 2021-02-10 2021-02-10 (INJ) STLMLC STLMLC [id number] Co mmon 00:00:00 00:00:00 Injection [facility] 2021-01-26 2021-01-26 (TEL) STLMLC STLMLC [id number] Co mmon 00:00:00 00:00:00 [facility] 2021-01-26 2021-01-26 (TEL) STLMLC STLMLC [id number] Co mmon 00:00:00 00:00:00 [facility] 2021-01-04 2021-01-04 Outpatient STLMLC STLMLC [id number] Common 00:00:00 00:00:00 [facility] 2020-12-22 2020-12-22 Outpatient STLMLC STLMLC [id number] Common 00:00:00 00:00:00 [facility] 2020-11-30 2020-11-30 Outpatient STLMLC STLMLC [id number] Common 00:00:00 00:00:00 [facility] 2020-10-17 2020-10-17 Outpatient STLMLC STLMLC [id number] Common 00:00:00 00:00:00 [facility] 2020-10-17 2020-10-17 Outpatient STLMLC STLMLC [id number] Common 00:00:00 00:00:00 [facility] 2020-09-26 2020-09-26 Outpatient STLMLC STLMLC [id number] Common 00:00:00 00:00:00 [facility] 2020-08-30 2020-08-30 Outpatient OWENS_T DMG DMG [id number] [facility] 05:31:00 05:31:00 [id number] [facility] 2020-08-19 2020-08-19 Outpatient STLMLC STLMLC [id number] Common 00:00:00 00:00:00 [facility] 2020-08-02 2020-08-02 Outpatient STLMLC STLMLC [id number] Common 00:00:00 00:00:00 [facility] 2020-07-26 2020-07-26 Outpatient STLMLC STLMLC [id number] Common 00:00:00 00:00:00 [facility] 2020-07-22 2020-07-22 Outpatient STLMLC STLMLC [id number] Common 00:00:00 00:00:00 [facility] 2020-07-19 2020-07-19 Outpatient STLMLC STLMLC [id number] Common 00:00:00 00:00:00 [facility] 2020-07-18 2020-07-18 Outpatient STLMLC STLMLC [id number] Common 00:00:00 00:00:00 [facility] 2020-06-20 2020-06-20 Outpatient STLMLC STLMLC [id number] Common 00:00:00 00:00:00 [facility] 2020-06-20 2020-06-20 Outpatient STLMLC STLMLC [id number] Common 00:00:00 00:00:00 [facility] 2020-06-17 2020-06-17 Outpatient STLMLC STLMLC [id number] Common 00:00:00 00:00:00 [facility] 2020-05-18 2020-05-18 Outpatient STLMLC STLMLC [id number] Common 00:00:00 00:00:00 [facility] 2020-05-13 2020-05-13 Outpatient STLMLC STLMLC [id number] Common 00:00:00 00:00:00 [facility] 2020-05-05 2020-05-05 Outpatient STLMLC STLMLC [id number] Common 00:00:00 00:00:00 [facility] 2020-04-18 2020-04-18 Outpatient STLMLC STLMLC [id number] Common 00:00:00 00:00:00 [facility] 2020-04-15 2020-04-15 Outpatient STLMLC STLMLC [id number] Common 00:00:00 00:00:00 [facility] 2020-03-16 2020-03-16 Outpatient STLMLC STLMLC [id number] Common 00:00:00 00:00:00 [facility] 2020-03-11 2020-03-11 Outpatient STLMLC STLMLC [id number] Common 00:00:00 00:00:00 [facility] 2020-03-07 2020-03-07 Outpatient STLMLC STLMLC [id number] Common 00:00:00 00:00:00 [facility] 2020-03-03 2020-03-03 Outpatient STLMLC STLMLC [id number] Common 00:00:00 00:00:00 [facility] 2020-02-22 2020-02-22 Outpatient STLMLC STLMLC [id number] Common 00:00:00 00:00:00 [facility] 2020-01-20 2020-01-20 [facility] [id number] Common 15:33:00 15:33:[address] [facility] 2020-01-20 2020-01-20 [facility] [id number] Common 15:26:00 15:26:[address] [facility] 2020-01-12 2020-01-12 [facility] [id number] Common 08:10:00 08:10:[address] [facility] 2019-12-22 2019-12-22 [facility] [id number] Common 10:19:00 10:19:[address] [facility] 2019-12-02 2019-12-02 [facility] [id number] Common 11:16:00 11:16:[address] [facility] 2019-11-03 2019-11-03 [facility] [id number] Common 08:15:00 08:15:00 [facility] 2019-10-26 2019-10-26 [facility] [id number] Common 11:19:00 11:19:00 [facility] 2019-10-21 2019-10-21 [facility] [id number] Common 09:15:00 09:15:[address] [facility] 2019-10-20 2019-10-20 [facility] [id number] Common 15:30:00 15:30:00 [facility] - [facility] 2019-10-14 2019-10-14 [facility] [id number] Common 08:40:00 08:40:[address] [facility] 2019-10-09 2019-10-09 [facility] [id number] Common 10:58:00 10:58:[address] Family [facility] 2019-10-09 2019-10-09 [facility] [id number] Common 08:21:00 08:21:[address] [facility] 2019-10-06 2019-10-06 [facility] 30 [id number] Common 15:50:00 15:50:[address] [facility] 2019-10-06 2019-10-06 [facility] 30 [id number] Common 09:00:00 09:00:[address] [facility] Family Medicine [facility] 2019-10-01 2019-10-01 Outpatient MEDLEY [facility] [id number] [place] 00:00:00 00:00:00 DELANEY 725 Met j[address] BECK 2019-07-30 2019-07-30 Outpatient MEDLEY [facility] [id number] [place] 00:00:00 00:00:00 DELANEY 267 [address] [facility] BECK 2019-07-17 2019-07-17 Outpatient KUNAPULI, [facility] [id number] [place] 00:00:00 00:00:00 LOULOU 913 Method i 2019-07-17 2019-07-17 Outpatient KUNAPULI, [facility] [id number] [place] 00:00:00 00:00:00 LOULOU [address] 2019-07-09 2019-07-09 Outpatient [facility] [id number] [place] 00:00:00 00:00:00 365 Method i 2019-07-08 2019-07-08 Outpatient MAJMUDAR, [facility] [id number] [place] 00:00:00 00:00:00 SHIRINE [address] 2019-07-02 2019-07-02 Outpatient KUNAPULI, [facility] [id number] [place] 00:00:00 00:00:00 LOULOU [address] 2019-07-02 2019-07-02 Outpatient KUNAPULI, [facility] [id number] [place] 00:00:00 00:00:00 LOULOU [address] 2019-05-13 2019-05-13 Outpatient SUSANA STEVENS [facility] [id number] [place] 00:00:00 00:00:[address] 2019-03-13 2019-03-13 Outpatient [facility] [id number] 48 [place] 00:00:00 00:00:00 Health 2019-03-04 2019-03-04 Outpatient [facility] [id number] 67 [place] 00:00:00 00:00:00 Health 2019-01-19 2019-01-19 Outpatient [facility] [id number] [place] 00:00:00 00:00:00 Health 2018-12-15 2018-12-15 Outpatient [facility] [id number] 36 [place] 10:58:41 10:58:41 Health 2018-12-15 2018-12-15 Outpatient [facility] [id number] 80 [place] 10:06:51 10:06:51 [facility] 2018-12-15 2018-12-15 Outpatient [facility] [id number] 36 [place] 08:50:09 08:50:09 [facility] 2018-12-15 2018-12-15 Outpatient [facility] [id number] 31 [place] 00:00:00 00:00:00 [facility] 2018-11-26 2018-11-26 Outpatient [facility] [id number] 54 [place] 08:13:34 08:13:34 [facility] 2018-11-26 2018-11-26 Outpatient [facility] [id number] 41 [place] 00:00:00 00:00:00 [facility] 2018-11-17 2018-11-17 Outpatient [facility] [id number] 27 [place] 00:00:00 00:00:00 [facility] 2018-10-06 2018-10-06 Outpatient [facility] [id number] 56 [place] 00:00:00 00:00:00 [facility] 2018-09-26 2018-09-26 Outpatient [facility] [id number] 41 [place] 10:06:34 10:06:34 [facility] 2018-09-26 2018-09-26 Outpatient [facility] [id number] 56 [place] 08:40:35 08:40:35 [facility] 2018-09-26 2018-09-26 Outpatient [facility] [id number] 36 [place] 08:24:50 08:24:50 [facility] 2018-08-25 2018-08-25 Outpatient [facility] [id number] 38 [place] 13:38:58 13:38:58 [facility] 2018-08-04 2018-08-04 Outpatient [facility] [id number] 90 [place] 00:00:00 00:00:00 [facility] 2018-07-30 2018-07-30 Outpatient [facility] [id number] 64 [place] 00:00:00 00:00:00 [facility] 2018-07-22 2018-07-22 Outpatient [facility] [id number] 92 [place] 00:00:00 00:00:00 [facility] 2018-07-10 2018-07-10 Outpatient [facility] [id number] 12 [place] 00:00:00 00:00:00 [facility] 2018-07-09 2018-07-09 Outpatient [facility] [id number] 16 [place] 00:00:00 00:00:00 [facility] 2018-07-03 2018-07-03 Outpatient [facility] [id number] 69 [place] 00:00:00 00:00:00 [facility] 2018-06-26 2018-06-26 Outpatient [facility] [id number] 24 [place] 12:26:00 12:26:00 [facility] 2018-06-18 2018-06-18 Outpatient [facility] [id number] 82 [place] 16:41:14 16:41:14 [facility] 2018-06-12 2018-06-12 Outpatient [facility] [id number] 19 [place] 18:03:36 18:03:36 [facility] 2018-06-12 2018-06-12 Outpatient [facility] [id number] 30 [place] 17:07:35 17:07:35 [facility] 2018-06-12 2018-06-12 Outpatient [facility] [id number] 73 [place] 00:00:00 00:00:00 [facility] 2018-06-12 2018-06-12 Outpatient [facility] [id number] 72 [place] 00:00:00 00:00:00 [facility] 2018-06-11 2018-06-11 Emergency [facility] [id number] 2 [place] 11:44:23 11:44:23 [facility] 2018-06-11 2018-06-[address] [facility] [id number] 98 [place] 10:15:12 10:15:12 [facility] 2018-05-15 2018-05-15 Outpatient [facility] [id number] 64 [place] 00:00:00 00:00:00 [facility] 2018-04-22 2018-04-22 Outpatient [facility] [id number] 00 [place] 09:19:06 09:19:06 [facility] 2018-04-04 2018-04-04 Outpatient [facility] [id number] 23 [place] 09:02:57 09:02:57 [facility] 2018-04-03 2018-04-03 Outpatient [facility] [id number] 24 [place] 00:00:00 00:00:00 [facility] 2018-03-25 2018-03-25 Outpatient [facility] [id number] 50 [place] 00:00:00 00:00:00 [facility] 2018-03-25 2018-03-25 Outpatient [facility] [id number] 91 [place] 00:00:00 00:00:00 [facility] 2018-03-24 2018-03-24 Outpatient [facility] [id number] 05 [place] 13:56:57 13:56:57 [facility] 2018-03-21 2018-03-21 Outpatient [facility] [id number] 83 [place] 00:00:00 00:00:00 [facility] 2018-03-21 2018-03-21 Outpatient [facility] [id number] 17 [place] 00:00:00 00:00:00 [facility] 2018-03-21 2018-03-21 Outpatient [facility] [id number] 46 [place] 00:00:00 00:00:00 [facility] 2018-03-04 2018-03-04 Outpatient [facility] [id number] 09 [place] 00:00:00 00:00:00 [facility] 2018-02-27 2018-02-27 Outpatient [facility] [id number] 80 [place] 00:00:00 00:00:00 [facility] 2018-02-25 2018-02-25 Outpatient [facility] [id number] 77 [place] 12:53:40 12:53:40 [facility] 2018-02-25 2018-02-25 Outpatient [facility] [id number] 85 [place] 11:03:51 11:03:51 [facility] 2018-02-25 2018-02-25 Outpatient [facility] [id number] 64 [place] 00:00:00 00:00:00 [facility] 2018-02-21 2018-02-21 Outpatient [facility] [id number] 34 [place] 15:02:30 15:02:30 [facility] 2018-02-11 2018-02-11 Outpatient [facility] [id number] 00 [place] 00:00:00 00:00:00 [facility] 2018-02-10 2018-02-10 Outpatient [facility] [id number] 82 [place] 00:00:00 00:00:00 [facility] 2018-02-10 2018-02-10 Outpatient [facility] [id number] 84 [place] 00:00:00 00:00:00 [facility] 2018-02-07 2018-02-07 Outpatient [facility] [id number] 79 [place] 00:00:00 00:00:00 [facility] 2018-02-05 2018-02-05 Outpatient [facility] [id number] 26 [place] 00:00:00 00:00:00 [facility] 2018-01-29 2018-01-29 Outpatient [facility] [id number] 99 [place] 00:00:00 00:00:00 [facility] 2018-01-27 2018-01-27 Outpatient [facility] [id number] 27 [place] 00:00:00 00:00:00 [facility] 2018-01-17 2018-01-17 Emergency [facility] [id number] 3 [place] 10:08:32 10:08:32 [facility] 2018-01-17 2018-01-17 Emergency [facility] [id number] 8 [place] 08:24:15 08:24:15 [facility] 2018-01-17 2018-01-17 Outpatient [facility] [id number] 72 [place] 07:31:43 07:31:43 Health 2018-01-15 2018-01-15 Outpatient [facility] [id number] 50 [place] 09:38:41 09:38:41 [facility] 2018-01-09 2018-01-09 Outpatient [facility] [id number] 31 [place] 00:00:00 00:00:00 [facility] 2017-12-31 2017-12-31 Outpatient [facility] [id number] 95 [place] 12:47:00 12:47:00 [facility] 2017-12-31 2017-12-31 Outpatient [facility] [id number] 47 [place] 12:06:00 12:06:00 [facility] 2017-12-27 2017-12-27 Outpatient [facility] [id number] 53 [place] 00:00:00 00:00:00 [facility] 2017 2017 Outpatient [facility] [id number] 56 [place] 10:16:43 10:16:43 [facility] 2017-12-24 2017-12-24 Outpatient [facility] [id number] 85 [place] 10:34:00 10:34:00 [facility] 2017-12-24 2017-12-24 Outpatient [facility] [id number] 61 [place] 09:05:34 09:05:34 [facility] 2017-12-24 2017-12-24 Outpatient [facility] [id number] 53 [place] 00:00:00 00:00:00 [facility] 2017-12-19 2017-12-19 Outpatient [facility] [id number] 35 [place] 00:00:00 00:00:00 [facility] 2017-12-12 2017-12-12 Outpatient [facility] [id number] 64 [place] 07:54:00 07:54:00 [facility] 2017-11-27 2017-11-27 Outpatient [facility] [id number] 76 [place] 11:36:11 11:36:11 [facility] 2017-11-19 2017-11-19 Outpatient [facility] [id number] 45 [place] 13:39:43 13:39:43 [facility] 2017-11-18 2017-11-18 Outpatient [facility] [id number] 60 [place] 14:25:53 14:25:53 [facility] 2017-11-12 2017-11-12 Outpatient [facility] [id number] 56 [place] 10:49:20 10:49:20 [facility] 2017-11-12 2017-11-12 Outpatient [facility] [id number] 20 [place] 00:00:00 00:00:00 [facility] 2017-11-12 2017-11-12 Outpatient [facility] [id number] 19 [place] 00:00:00 00:00:00 [facility] 2017-11-05 2017-11-05 Outpatient [facility] [id number] 77 [place] 10:16:07 10:16:07 [facility] 2017-11-05 2017-11-05 Outpatient [facility] [id number] 55 [place] 09:00:21 09:00:21 [facility] 2017-10-29 2017-10-29 Outpatient [facility] [id number] 20 [place] 13:45:43 13:45:43 [facility] 2017-10-18 2017-10-18 Outpatient [facility] [id number] [place] 00:00:00 00:00:00 [facility] 2017-10-14 2017-10-14 Outpatient [facility] [id number] 62 [place] 00:00:00 00:00:00 [facility] 2017-10-07 2017-10-07 Outpatient [facility] [id number] 63 [place] 00:00:00 00:00:00 [facility] 2017-10-03 2017-10-03 Outpatient [facility] [id number] 69 [place] 10:04:26 10:04:26 [facility] 2017-10-03 2017-10-03 Outpatient [facility] [id number] 18 [place] 09:28:32 09:28:32 [facility] 2017-10-01 2017-10-01 Outpatient [facility] [id number] 65 [place] 11:05:29 11:05:29 [facility] 2017-10-01 2017-10-01 Outpatient [facility] [id number] 92 [place] 10:18:38 10:18:38 [facility] 2017-09-24 2017-09-24 Outpatient [facility] [id number] 10 [place] 00:00:00 00:00:00 [facility] 2017-09-23 2017-09-23 Outpatient [facility] [id number] 31 [place] 10:21:51 10:21:51 [facility] 2017-09-23 2017-09-23 Outpatient [facility] [id number] 51 [place] 08:59:09 08:59:09 [facility] 2017-09-17 2017-09-17 Outpatient [facility] [id number] 47 [place] 13:57:42 13:57:42 [facility] 2017-09-09 2017-09-09 Outpatient [facility] [id number] 77 [place] 08:37:34 08:37:34 [facility] 2017-09-02 2017-09-02 Outpatient [facility] [id number] 20 [place] 09:36:38 09:36:38 [facility] 2017-08-28 2017-08-28 Outpatient [facility] [id number] 35 [place] 13:30:26 13:30:26 [facility] 2017-08-08 2017-08-08 Emergency [facility] [id number] 7 [place] 22:23:03 22:23:03 [facility] 2017-08-08 2017-08-08 Outpatient [facility] [id number] 30 [place] 00:00:00 00:00:00 [facility] 2017-08-08 2017-08-08 Outpatient [facility] [id number] [place] 00:00:00 00:00:00 [facility] 2017-08-06 2017-08-06 Outpatient [facility] [id number] 34 [place] 00:00:00 00:00:00 [facility] 2017-08-05 2017-08-05 Outpatient [facility] [id number] 56 [place] 13:08:03 13:08:03 [facility] 2017-08-05 2017-08-05 Outpatient [facility] [id number] 62 [place] 11:01:45 11:01:45 [facility] 2017-08-05 2017-08-05 Outpatient [facility] [id number] 92 [place] 08:41:42 08:41:42 [facility] 2017-08-05 2017-08-05 Outpatient [facility] [id number] 43 [place] 00:00:00 00:00:00 [facility] 2017-08-05 2017-08-05 Outpatient [facility] [id number] 47 [place] 00:00:00 00:00:00 [facility] 2017-08-01 2017-08-01 Outpatient [facility] [id number] 24 [place] 08:44:07 08:44:07 [facility] 2017-08-01 2017-08-01 Outpatient [facility] [id number] 86 [place] 00:00:00 00:00:00 [facility] 2017-08-01 2017-08-01 Outpatient [facility] [id number] 52 [place] 00:00:00 00:00:00 [facility] 2017-07-23 2017-07-23 Outpatient [facility] [id number] 12 [place] 16:18:24 16:18:24 [facility] 2017-07-16 2017-07-16 Outpatient [facility] [id number] 38 [place] 00:00:00 00:00:00 [facility] 2017-07-11 2017-07-11 Outpatient [facility] [id number] 82 [place] 11:38:48 11:38:48 [facility] 2017-07-10 2017-07-10 Outpatient [facility] [id number] 55 [place] 10:18:32 10:18:32 [facility] 2017-07-10 2017-07-10 Outpatient [facility] [id number] 25 [place] 08:18:20 08:18:20 [facility] 2017-07-09 2017-07-09 Outpatient [facility] [id number] 30 [place] 00:00:00 00:00:00 [facility] 2017-06-24 2017-06-24 Outpatient [facility] [id number] 50 [place] 00:00:00 00:00:00 [facility] 2017-06-14 2017-06-14 Outpatient [facility] [id number] 61 [place] 08:03:34 08:03:34 [facility] 2017-06-12 2017-06-12 Outpatient [facility] [id number] 48 [place] 20:12:14 20:12:14 [facility] 2017-06-10 2017-06-10 Outpatient [facility] [id number] 61 [place] 09:37:52 09:37:52 [facility] 2017-06-10 2017-06-10 Outpatient [facility] [id number] 99 [place] 08:42:02 08:42:02 [facility] 2017-06-05 2017-06-05 Outpatient [facility] [id number] 97 [place] 10:46:32 10:46:32 [facility] 2017-05-31 2017-05-31 Outpatient [facility] [id number] 85 [place] 14:46:12 14:46:12 [facility] 2017-05-27 2017-05-27 Outpatient [facility] [id number] 63 [place] 00:00:00 00:00:00 [facility] 2017-05-23 2017-05-23 Outpatient [facility] [id number] 27 [place] 11:59:38 11:59:38 [facility] 2017-05-23 2017-05-23 Outpatient [facility] [id number] 80 [place] 00:00:00 00:00:00 [facility] 2017-05-16 2017-05-16 Outpatient [facility] [id number] 84 [place] 16:21:53 16:21:53 [facility] 2017-05-16 2017-05-16 Outpatient [facility] [id number] 02 [place] 00:00:00 00:00:00 [facility] 2017-05-14 2017-05-14 Outpatient [facility] [id number] 25 [place] 00:00:00 00:00:00 [facility] 2017-05-13 2017-05-13 Outpatient [facility] [id number] 13 [place] 12:20:11 12:20:11 [facility] 2017-05-13 2017-05-13 Outpatient [facility] [id number] 90 [place] 00:00:00 00:00:00 [facility] 2017-05-08 2017-05-08 Outpatient [facility] [id number] 69 [place] 00:00:00 00:00:00 [facility] 2017-04-30 2017-04-30 Outpatient [facility] [id number] 24 [place] 07:15:53 07:15:53 [facility] 2017-04-30 2017-04-30 Outpatient [facility] [id number] 14 [place] 06:54:15 06:54:15 [facility] 2017-04-22 2017-04-22 Outpatient [facility] [id number] 92 [place] 08:27:43 08:27:43 [facility] 2017-04-15 2017-04-15 Outpatient [facility] [id number] 58 [place] 11:04:39 11:04:39 [facility] 2017-04-03 2017-04-03 Outpatient [facility] [id number] 10 [place] 08:24:48 08:24:48 [facility] 2017-04-02 2017-04-02 Outpatient [facility] [id number] 00 [place] 16:13:48 16:13:48 [facility] 2017-04-02 2017-04-02 Outpatient [facility] [id number] 54 [place] 10:12:00 10:12:00 [facility] 2017-03-27 2017-03-27 Outpatient [facility] [id number] 26 [place] 08:53:50 08:53:50 [facility] 2017-03-27 2017-03-27 Outpatient [facility] [id number] 34 [place] 00:00:00 00:00:00 [facility] 2017-03-25 2017-03-25 Outpatient [facility] [id number] 54 [place] 13:51:49 13:51:49 [facility] 2017-03-15 2017-03-15 Outpatient [facility] [id number] [place] 14:16:41 14:16:41 [facility] 2017-03-13 2017-03-13 Outpatient [facility] [id number] 21 [place] 13:15:34 13:15:34 [facility] 2017-03-13 2017-03-13 Outpatient [facility] [id number] 28 [place] 12:54:27 12:54:27 [facility] 2017-03-13 2017-03-13 Outpatient [facility] [id number] 56 [place] 10:32:53 10:32:53 [facility] 2017-03-07 2017-03-07 Outpatient [facility] [id number] 89 [place] 11:53:25 11:53:25 [facility] 2016-11-05 2016-11-06 Emergency 1 GINNY TEJA HARMAN ERS [id number] [employer] 20:54:00 01:23:00 [id number] [facility] 2012-10-27 2012-10-29 Outpatient 1 CELIA BERKLEYRODOLFOLUIS OBE [id number] 43- [employer] 18:07:00 13:18:00 [facility] [id number] [facility] Results Test Description Test Time Test Comments Results Result Comments Source STREP A RAPID 2021-02-21 00:00:00 Test Item Value Reference Range Interpretation Comme nts Result (test code = 06676-9) Negative CT Abdomen and Pelvis w/o [id number] 19:37:37Patient: GEORGES PAULSON Date/Time06/10/2018 18:00 CSTReason for ExamFlank painAd dendumADDENDUM:TECHNIQUE: Multiple axial images were obtained through the [...] PELVIS WITHOUT CONTRASTCOMPARISON: NoneCLINICAL INFORMATION: Right flank painT ECHNIQUE: After oral contrast administration, multiple axial images [...] Diffuse hypoattenuation of the hepatic parenchyma. No f ocal hepatic lesions. No intra or extra hepatic biliary ductal dilatation.Gallbladder is grossly unremarkable, without radiodense calculi.Spleen is grossly normal.A 1 cm well-circumscribed hypodensity within the pancreatic head/neck (axial image 63, series 201), with internal density measuring up to 3Hounsfield units, most compatible with simple pancreatic cyst. [...] of the intraluminal vascular contents cannot be per formed on this noncontrast examination.No lytic or blastic osseous lesions. Moderate multilevel degenerative disc disease of the lumbar spine, with prominent posterior disc osteophyte complex at L3-L4,which results in moderate/severe spinal canal stenosis at [...] a nonemergent basis.6. 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 Recommend follow-up CT versus MRI abdomen in one year to document stability. Final Dictated by: MD Munir, SamerDictated DT/TM: 06/10/2018 6:32 pmSigned by: MD Munir, SamerSigned (Electronic Signature): 06/10/2018 6:48 pmReport last revised on 06/10/2018 19:37 COMMUNITY REPRESENTATIVE by MD Munir, [facility] Abdomen and Pelvis w/o [id number] 18:48:17Patient: GEORGES PAULSON Date/Time06/10/2018 18:00 CSTReason for ExamFlank painReportEXAMINATION: CT [...] inflammatory changes within the right lower quadrant.No intrape rineal free air and/or free fluid.No lymphadenopathy.Mild calcific atherosclerosis of the aortoiliacvasculature. Otherwise remainder of the aorta, IVC, and main portal vein are grossly normal, however, complete evaluation of the intraluminal vascular contents cannot be performed on this noncontrast ex amination.No lytic or blastic osseous lesions. Moderate multilevel [...] distal right ureteral calculus.2. Subcentimeter nonobstructive left nephrolithiasis.3.Hepatic steatosis.4. Moderate multilevel degenerative disc disease of [...] MD Munir, SamerSigned (Electronic Signature): 06/10/2018 6:48 pmUS LIMITED ABD [id number] 21:52:[address] [id number] IMAG[facility] REPORTPatient Name: GEORGES PAULSON LDate of Service: [id number]: 55 Sex: M Order #: [id number] Room: QERDOB: 1960 X-Ray Number: [id number] Record Number: [id number] Hospital Number: [id number] Ph ysician: TEJA GROSS TANOrdering Physician: Adrianne CEDILLO right [...] the patient's history of reported benign renal les ion.IMPRESSION:No definite acute process.Possible mild hepatomegaly and fatty liver.Electronically Signed By: Teo Pruitt M.D., 11/05/2016 9:50 PMLegally authenticated by DEB THOMPSON 2016-11-05 21:50:[id number] 21:49:[address] [id number] IMAGING REPORTPatient Name: GEORGES PAULSON LDate of Service: [id number]: 55 Sex: M Order #: [id number] Room: [facility]: 1960 X-Ray Number: [id number] Record Number: [id number] Hospital Number: [id number] Ph ysician: TEJA GROSS TANOrdering Physician: Jose CEDILLO shoulder 3 views 11/05/2016 at 2138 hoursHISTORY: Right shoulder pain x6 monthsCOMPARISON: NoneNo fracture, dislocation, or AC joint separation is identified. There aremild degenerative changes of the AC joint. The soft tissues areunremarkable .Impression:No acute process. AC joint degenerative changes.Electronically Signed By: Teo Pruitt M.D., 11/05/2016 9:46 PMLegally authenticated by DEB THOMPSON 2016-11-05 21:46:54SARS-COV 2 AntigenSARS-COV 2 AntigenSARS-COV 2 AntigenSARS- COV 2 Antigen
[2022-05-10] MEDS ORDERED: ONDANSETRON 4 MG/2 ML VIAL ONE (07:04)
[2022-05-10] MEDS ORDERED: MORPHINE 4 MG/ML SYR ONE (07:04)
[2022-05-10] MEDS ORDERED: NA CHLORIDE 0.9% 500 ML ONE (07:04)
[2022-05-10 07:21] LABS: Absolute Lymphocytes (CBC) 2.2 K/uL (0.7-4.9); Hematocrit 45.2 % (39.6-49.0); Lymphocytes % 29.2 % (15.3-44.8); MCV 96.3 fL (80-100); MPV 8.7 fL (7.6-11.3); RBC Red Blood Cell Count 4.69 M/uL (4.33-5.43)
[2022-05-10] MEDS ORDERED: MORPHINE 2 MG/ML SYR ONE (07:33)
[2022-05-10 07:37] LABS: Albumin 3.6 g/dL (3.4-5.0); Bilirubin Direct 0.1 mg/dL (0-0.2); Bilirubin Total 0.4 mg/dL (0.2-1.0); Potassium 3.8 mmol/L (3.5-5.1); Protein, Total 7.1 g/dL (6.4-8.2)
[2022-05-10 07:39] LABS: Urine Blood Negative (Negative); Urine Glucose 2+ (Negative); Urine Protein Negative (Negative); Urine Specific Gravity 1.015 (1.005-1.030)
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
[2022-05-10 07:51] LABS: Urine Bacteria None Seen /HPF (<20); Urine Mucus Slight /HPF (None Seen); Urine RBC <5 /HPF (None Seen)
--- NOTE | 2022-05-10 08:43 | RAD REPORT ---
EXAM DESCRIPTION: RAD - Knee Left 3 View - 05/10/2022 8:36 am CLINICAL HISTORY: PAIN COMPARISON: No comparisons FINDINGS/IMPRESSION: No acute fracture. No malalignment. Enthesophytes at the patella.
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
[2022-05-10] MEDS ORDERED: MUPIROCIN 2% OINT 22GM TUBE TOP ONE (09:13)
[2022-05-10 09:45] VITALS: BP 138/74; O2SAT 95
== END 2022-05-10 09:26 | disposition home or self-care (01) ==
LOC: ER 06:48
DX: S50.312A Abrasion of left elbow, initial encounter (principal); V03.90XA Pedestrian on foot injured in collision with car, pick-up truck or van, unspecified whether traffic or nontraffic accident, initial encounter; I10 Essential (primary) hypertension
CPT/HCPCS: 85025; 80048; 36415; 86900; 86850; 86901; 80076; 70450; 72125; 71260; 74177; 73080; 73562; 96375; 96374; 99285; Q9967; J2270; J7040; J2405; 81003; 81015

== ENCOUNTER 2024-09-10 22:58 | Observation (INO) | payer MEDICAID, MEDICARE ==
[2024-09-10] MEDS ORDERED: ASPIRIN 81 MG CHEWABLE TABLET ONE (23:36)
[2024-09-10] MEDS ORDERED: ONDANSETRON 4 MG/2 ML VIAL ONE (23:36)
[2024-09-10] MEDS ORDERED: MORPHINE 4 MG/ML SYR ONE (23:36)
[2024-09-10 23:37] LABS: Absolute Eosinophils 0.2 K/uL (0-0.5); Absolute Lymphocytes (CBC) 2.8 K/uL (0.7-4.9); Absolute Monocytes 0.7 K/uL (0.1-1.3); Absolute Neutrophil 3.3 K/uL (1.8-8.0); Basophils % 0.6 % (0-1.3); Eosinophils % 3.3 % (0-4.4); Hematocrit 43.7 % (39.6-49.0); Hemoglobin 14.6 g/dL (13.6-17.9); MCH 31.2 pg (27.0-35.0); MCHC 33.4 g/dL (32.0-36.0); MCV 93.3 fL (80-100); MPV 8.7 fL (7.6-11.3); Neutrophils % 47.1 % (41.7-73.7); Nucleated Red Blood Cells % 0.1 % (0-0); Platelets 177 thou/uL (152-406); RBC Red Blood Cell Count 4.68 M/uL (4.33-5.43); Red Cell Distribution Width 14.6 % (12.1-15.2)
[2024-09-10] MEDS ORDERED: NITROGLYCERIN 0.4 MG/TAB SL ONE (23:59)
[2024-09-11 00:02] LABS: PT Prothrombin Time 11.3 SECONDS (10-13.0); Protime INR 0.99
[2024-09-11 00:38] LABS: ALT/SGPT 36 U/L (16-61); AST/SGOT 22 U/L (15-37); Albumin 3.3 g/dL (3.4-5.0); Alkaline Phosphatase 76 U/L (45-117); Anion Gap 9.8 mEq/L (5.0-15.0); BUN Blood Urea Nitrogen 18 mg/dL (7-18); Bicarbonate 24 mEq/L (21-32); Bilirubin Total 0.4 mg/dL (0.2-1.0); Globulin 3.4 g/dL (2.3-3.5); Glomerular Filtration Rate 102 ml/min (=/>90); Glucose Level 126 mg/dL (74-106); Magnesium 2.2 mg/dL (1.6-2.4); NT PRO-BNP 65 pg/mL (<125); Potassium 3.8 mEq/L (3.5-5.1); Protein, Total 6.7 g/dL (6.4-8.2); Sodium Level 141 mEq/L (136-145); Troponin High Sensitivity 9.8 pg/mL (<58.9)
[2024-09-11 00:40] LABS: Bilirubin Direct < 0.2 mg/dL (0-0.2); Bilirubin Indirect, Calculated 0.2 mg/dL (0.2-0.8)
--- NOTE | 2024-09-11 01:09 | ER ---
Nurse's Notes [facility] Name: Georges Mendoza Age: 63 yrs Sex: Male : 1960 Arrival Date: 09/10/2024 Time: 22:58 Bed 4 Private MD: Diagnosis: Chest pain, unspecified Presentation: 09/10 23:40 Chief complaint: Patient states: chest pain. kd4 23:40 Coronavirus screen: Client denies travel out of the [place] in the last 14 days. At this kd4 time, the client does not indicate any symptoms associated with coronavirus-19. Ebola Screen: Patient denies exposure to infectious person. Initial Sepsis Screen: Does the patient meet any 2 criteria? No. Patient's initial sepsis screen is negative. Does the patient have a suspected source of infection? No. Patient's initial sepsis screen is negative. Risk Assessment: Do you want to hurt yourself or someone else? Patient reports no desire to harm self or others. Onset of symptoms was September 10, 2024. Care prior to arrival:. 23:40 Method Of Arrival: Ambulatory kd4 23:40 Acuity: WICHO 3 kd4 Triage Assessment: 23:55 General: Appears in no apparent distress. Behavior is calm, cooperative. Pain: kd4 Complains of pain in chest Pain currently is 8 out of 10 on a pain scale. Neuro: No deficits noted. Cardiovascular: Reports chest pain. Respiratory: No deficits noted. GI: No deficits noted. : No deficits noted. Historical: - PMHx: 23:55 diabetes mellitus; Hypertensive disorder; Kidney stone; kd4 - PSHx: 23:55 Appendectomy; back surgery; kidney ablation; kd4 - Infectious Disease History:: Denies. - Social history:: Smoking status: Patient denies any tobacco usage or history of. Patient/guardian denies using alcohol, street drugs, IV drugs. Screenin:58 [facility] ED Fall Risk Assessment (Adult) History of falling in the last 3 months, kd4 including since admission No falls in past 3 months (0 pts) Confusion or Disorientation No (0 pts) Intoxicated or Sedated No (0 pts) Impaired Gait No (0 pts) Mobility Assist Device Used No (0 pt) Altered Elimination No (0 pt) Score/Fall Risk Level 0 - 2 = Low Risk Oriented to surroundings, Maintained a safe environment. Abuse screen: Denies threats or abuse. Nutritional screening: No deficits noted. Tuberculosis screening: No symptoms or risk factors identified. Assessment: 23:58 General: see triage . Pain: Complains of pain in chest Pain does not radiate. Pain kd4 began 2 hours ago. Vital Signs: 23:40 BP 138 / 76; Pulse 75; Resp 20; Pulse Ox 96% on R/A; Pain 8/10; kd4 23:40 Pain Scale: Adult kd4 [place] Coma Score: 23:58 Eye Response: spontaneous(4). Motor Response: obeys commands(6). Verbal Response: kd4 oriented(5). Total: 15. ED Course: 23:00 Patient arrived in ED. mr 23:06 Mikaela Coyne PA-C is PHCP. sb4 23:06 Gianfranco Arrington MD is Attending Physician. sb4 23:06 Jasmina Reed, CAMRYN is Primary Nurse. kd4 23:21 EKG done, by ED staff. vk 23:55 Triage completed. kd4 23:55 EKG completed in triage. Results shown to MD. EKG done per protocol. Performed by ED kd4 Staff. Labs ordered per protocol. Drawn by ED staff. X-ray ordered. 23:58 Initial lab(s) drawn, by ED staff. Inserted saline lock: 20 gauge in right antecubital kd4 area, using aseptic technique. Patient maintains SpO2 saturation greater than 95% on room air. 23:58 Client placed on continuous cardiac and pulse oximetry monitoring. NIBP monitoring kd4 applied. compliance monitor on. Pulse ox on. NIBP on. 09/11 00:00 XRAY Chest (1 view) In Process Unspecified. EDMS 01:08 Matthew Nails MD is Hospitalizing Provider. sb4 10:03 Primary Nurse role handed off by Jasmina Reed, CAMRYN ld1 10:03 Catalina Jasmine, CAMRYN is Primary Nurse. ld1 Administered Medications: 09/10 23:42 Drug: Ondansetron IVP 4 mg IVP once; over 2 minutes Route: IVP; Site: right antecubital;kd4 09/11 00:03 Follow up: Response: No adverse reaction kd4 09/10 23:43 Drug: Aspirin PO Chewable Tablet 324 mg PO once; 81 mg tablets x 4 Route: PO; kd4 09/11 00:03 Follow up: Response: No adverse reaction kd4 09/10 23:43 Drug: morphine IVP or IV 4 mg IVP once over 4 mins Route: IVP; Infused Over: 4 mins; kd4 Site: right antecubital; 09/11 00:03 Follow up: Response: No adverse reaction kd4 00:02 Drug: Nitroglycerin Sublingual 0.4 mg Sublingual once; every five minute if needed x3 kd4 Route: Sublingual; 00:08 Drug: Nitroglycerin Sublingual 0.4 mg Sublingual once; every five minute if needed x3 kd4 Route: Sublingual; 00:17 Drug: Nitroglycerin Sublingual 0.4 mg Sublingual once; every five minute if needed x3 kd4 Route: Sublingual; 00:17 Follow up: Response: No adverse reaction kd4 Medication: 09/10 23:58 VIS not applicable for this client. kd4 Outcome: 09/11 01:08 Decision to Hospitalize by Provider. sb4 12:50 Patient left the ED. eb Signatures: Dispatcher [employer] EDMO Angelia Martini, Reg Flako mr BellEbony Lauren, RN RN ld1 Mikaela Coyne PA-C PAMirthaC sb4 Ayana Kunz Karim RN RN kd4
--- NOTE | 2024-09-11 01:09 | EDPHYS ---
Physician Documentation [facility] Name: Georges Mendoza Age: 63 yrs Sex: Male : 1960 Arrival Date: 09/10/2024 Time: 22:58 Bed 4 Private MD: Gianfranco Brown HPI: 09/11 01:57 This 63 yrs old Male presents to ER via Ambulatory with complaints of Chest Pain. sb4 01:57 Substernal chest pain that began this evening while watching TV. States the pain feels sb4 like muscle spasms in his chest. Denies any radiation of the pain. Does report associated nausea and shortness of breath. No dizziness. Denies any cardiac history. Does report a history of a leaky mitral valve, hypertension, diabetes. Historical: - PMHx: 09/10 23:55 diabetes mellitus; Hypertensive disorder; Kidney stone; kd4 - PSHx: 23:55 Appendectomy; back surgery; kidney ablation; kd4 - Infectious Disease History:: Denies. - Social history:: Smoking status: Patient denies any tobacco usage or history of. Patient/guardian denies using alcohol, street drugs, IV drugs. ROS: 09/11 01:57 Constitutional: Negative for fever, chills, and weight loss, sb4 Cardiovascular: Positive for chest pain, All other systems are negative, Exam: 01:57 Head/Face: Normocephalic, atraumatic. Eyes: Extra-ocular motions intact. Periorbital sb4 areas with no swelling, redness, or edema. ENT: Mucous membranes moist. Cardiovascular: Regular rate and rhythm with a normal S1 and S2. Respiratory: No increased work of breathing, no retractions or nasal flaring. Abdomen/GI: Soft, non-tender, no distension. Skin: Warm, dry with normal turgor. Normal color with no rashes, no lesions, and no evidence of cellulitis. MS/ Extremity: Pulses equal, no cyanosis. Neurovascular intact. Full, normal range of motion. 01:57 Constitutional: The patient appears alert, awake, obese, uncomfortable, Vital Signs: 09/10 23:40 BP 138 / 76; Pulse 75; Resp 20; Pulse Ox 96% on R/A; Pain 8/10; kd4 23:40 Pain Scale: Adult kd4 [place] Coma Score: 23:58 Eye Response: spontaneous(4). Motor Response: obeys commands(6). Verbal Response: kd4 oriented(5). Total: 15. MDM: 23:06 Medical Screening Exam initiated 09/11 01:06 Care significantly affected by the following chronic conditions: Diabetes, sb4 Hypertension. Scoring Tools HEART Score: History: ECG: Age: Risk Factors: > or = 3 Risk factors for atherosclerotic disease (2), Troponin: Total Score = 4. Counseling: I had a detailed discussion with the patient and/or guardian regarding the historical points, exam findings, and any diagnostic results supporting the discharge/admit diagnosis, the presence of at least one elevated blood pressure reading (>120/80) during this emergency department visit, lab results, radiology results, the need for further work-up and treatment in the hospital. 01:57 Differential diagnosis: Acute [place], unstable angina, muscle strain, musculoskeletal pain, sb4 pneumonia. Data reviewed: vital signs, nurses notes, lab test result(s), EKG, radiologic studies, and as a result, I will admit patient. Historians other than the Patient: Spouse/Significant Other: . 09/10 23:14 Order name: Basic Metabolic Panel; Complete Time: 00:51 sb4 09/10 23:14 Order name: CBC with Diff; Complete Time: 23:42 sb4 09/10 23:14 Order name: LFT's; Complete Time: 00:51 sb4 09/10 23:14 Order name: Magnesium; Complete Time: 00:51 sb4 09/10 23:14 Order name: NT PRO-BNP; Complete Time: 00:51 sb4 09/10 23:14 Order name: PT-INR; Complete Time: 00:22 sb4 09/10 23:14 Order name: Troponin HS; Complete Time: 00:51 sb4 09/11 02:35 Order name: CBC with Automated Diff EDMS 09/11 02:35 Order name: CBC with Automated Diff EDMS 09/11 02:35 Order name: Comprehensive Metabolic Panel EDMS 09/11 02:35 Order name: Comprehensive Metabolic Panel EDMS 09/11 02:35 Order name: NT PRO-BNP EDMS 09/11 02:35 Order name: NT PRO-BNP EDMS 09/11 02:35 Order name: Troponin High Sensitivity EDMS 09/11 02:35 Order name: Troponin High Sensitivity; Complete Time: 13:06 EDMS 09/11 02:35 Order name: Troponin High Sensitivity EDMS 09/11 02:35 Order name: Troponin High Sensitivity EDMS 09/11 08:34 Order name: Glucose, Ancillary Testing; Complete Time: 13:06 EDMS 09/11 08:41 Order name: CBC without Diff; Complete Time: 13:06 EDMS 09/11 08:58 Order name: Basic Metabolic Panel; Complete Time: 13: EDMS 09/11 08:58 Order name: NT PRO-BNP; Complete Time: 13:06 EDMS 09/11 08:58 Order name: Magnesium; Complete Time: 13:06 EDMS 09/10 23:14 Order name: XRAY Chest (1 view); Complete Time: 13:06 sb4 09/10 23:14 Order name: Cardiac monitoring; Complete Time: 23:20 sb4 09/10 23:14 Order name: EKG - Nurse/Tech; Complete Time: 23:21 sb4 09/10 23:14 Order name: IV Saline Lock; Complete Time: 02:53 sb4 09/10 23:14 Order name: Labs collected and sent; Complete Time: 02:53 sb4 09/10 23:14 Order name: O2 Per Protocol; Complete Time: 02:53 sb4 09/10 23:14 Order name: O2 Sat Monitoring; Complete Time: 02:53 sb4 EC/08 23:15 Rate is 68 beats/min. Rhythm is regular, Normal Sinus Rhythm. ME interval is normal at sb4 174 msec. QRS interval is normal at 92 msec. QT interval is normal at 380 msec. No Q waves. T waves are Normal. No ST changes noted. Clinical impression: No evidence of ischemia. Interpreted by me. Reviewed by me. Administered Medications: 23:42 Drug: Ondansetron IVP 4 mg IVP once; over 2 minutes Route: IVP; Site: right antecubital;09/11 00:03 Follow up: Response: No adverse reaction 09/10 23:43 Drug: Aspirin PO Chewable Tablet 324 mg PO once; 81 mg tablets x 4 Route: PO; 09/11 00:03 Follow up: Response: No adverse reaction 09/10 23:43 Drug: morphine IVP or IV 4 mg IVP once over 4 mins Route: IVP; Infused Over: 4 mins; kd4 Site: right antecubital; 09/11 00:03 Follow up: Response: No adverse reaction kd4 00:02 Drug: Nitroglycerin Sublingual 0.4 mg Sublingual once; every five minute if needed x3 kd4 Route: Sublingual; 00:08 Drug: Nitroglycerin Sublingual 0.4 mg Sublingual once; every five minute if needed x3 kd4 Route: Sublingual; 00:17 Drug: Nitroglycerin Sublingual 0.4 mg Sublingual once; every five minute if needed x3 kd4 Route: Sublingual; 00:17 Follow up: Response: No adverse reaction kd4 Disposition Summary: 09/11/24 01:08 Hospitalization Ordered Notes: Hospitalization Status: Observation sb4 Provider: Matthew Nails sb4 Condition: Stable sb4 Problem: new sb4 Symptoms: have improved sb4 Bed/Room Type: Standard sb4 Location: [facility] ER HOLD(09/11/24 03:03) vk Room Assignment: ERHOLD-(09/11/24 03:03) vk Diagnosis - Chest pain, unspecified sb4 Discharge Instructions: - Discharge Summary Sheet kd4 - Form - Excuse from Work, School, or Physical Activity kd4 Forms: - Medication Reconciliation Form sb4 - SBAR form sb4 - Leadership Thank You Letter sb4 Addendum: 09/18/2024 16:32 Co-signature as Attending Physician, Gianfranco Arrington MD I agree with the assessment and c morrison plan of care. Signatures: Dispatcher [employer] Gianfranco Gracia MD MD cha Brown, Sophia, PA-C PA-C sb4 Ayana Kunz Karim RN RN kd4 Corrections: (The following items were deleted from the chart) 09/10 23:14 23:14 BASIC METABOLIC PANEL+C.LAB.BRZ ordered. EDMS EDMS 23:14 23:14 CBC+H.LAB.BRZ ordered. EDMS EDMS 23:14 23:14 HEPATIC FUNCTION+C.LAB.BRZ ordered. EDMS EDMS 23:14 23:14 MAGNESIUM+C.LAB.BRZ ordered. EDMS EDMS 23:14 23:14 PROBNP+C.LAB.BRZ ordered. EDMS EDMS 23:15 23:14 PROTIME (+INR)+COAG.LAB.BRZ ordered. EDMS EDMS 23: 23:14 Troponin High Sensitivity+C.LAB.BRZ ordered. EDMS EDMS : 23:15 Chest Single View+RAD.RAD.BRZ ordered. EDMS EDMS 09/11 03:03 01:08 Telemetry/MedSurg (observation) sb4 vk 03:03 01:08 sb4 vk
[2024-09-11] MEDS ORDERED: NITROGLYCERIN 0.4 MG/TAB SL PRN (02:41)
[2024-09-11] MEDS ORDERED: MORPHINE 4 MG/ML SYR IV PRN (02:42)
--- NOTE | 2024-09-11 02:55 | P.HP ---
Certification for Inpatient Patient admitted to: Observation With expected LOS: <2 Midnights Patient will require the following post-hospital care: None Practitioner: I am a practitioner with admitting privileges, knowledge of patient current condition, hospital course, and medical plan of care. Services: Services provided to patient in accordance with Admission requirements found in Title 42 Section 412.3 of the Code of Federal Regulations Patient History Date of Service: 09/11/24 Allergies No Known Allergies Allergy (Verified 08/23/21 11:05) Home medications list reviewed: No Home Medications: ALPRAZolam [Xanax] 1 mg PO BEDTIME 08/15/21 Allopurinol 300 mg PO PRN PRN 08/15/21 Alpha Lipoic Acid 100 mg PO BID 08/15/21 Aspirin [Aspirin EC 81 MG] 81 mg PO DAILY 08/15/21 Codeine/APAP [Tylenol W/Codeine #3 tab] 1 tab PO Q6HP PRN 08/15/21 Cyclobenzaprine [Flexeril] 10 mg PO TID PRN 08/15/21 Empagliflozin [Jardiance] 25 mg PO DAILY 08/15/21 Folic Acid/Vit B Complex and C [Super B Complex-Vit C Caplet] 1 tab PO DAILY 08/15/21 Gabapentin 600 mg PO BEDTIME 08/15/21 Glipizide [Glipizide Xl] 10 mg PO DAILY 08/15/21 Gluc/MSM/C/[place]/Prim [Joint Support Complex Softgel] 1 each PO DAILY 08/15/21 Linagliptin [Tradjenta] 5 mg PO DAILY 08/15/21 Liraglutide [Victoza 2-Kike] 1.8 mg SQ BEDTIME 08/15/21 Metoprolol Tartrate [Lopressor] 25 mg PO BEDTIME 08/15/21 Pantoprazole [Protonix Tab*] 40 mg PO DAILY 08/15/21 Propranolol HCl 10 mg PO BID 08/15/21 Ubidecarenone [Co Q-10] 200 mg PO DAILY 08/15/21 Zolpidem Tartrate [Ambien] 10 mg PO BEDTIME 08/15/21 lisinopriL [Zestril] 40 mg PO DAILY 08/15/21 - Past Medical/Surgical History Diabetic: Yes -: Diabetic neuropathy. -: Type 2 diabetes mellitus. -: Hypertension. -: Kidney stones. -: Umbilical hernia pair -: Laminectomies. -: Neck surgery. -: Elbow surgery. -: Left ankle surgery. -: Vasectomy. -: Left toe surgery. -: Right knee arthroplasty -: Ear surgery. - Family History Father -: Cancer Mother -: Diabetes Brother -: Diabetes Sister -: Heart disease, Hypertension, Diabetes - Social History Smoking Status: Former smoker Alcohol use: Yes CD- Drugs: No Caffeine use: Yes Place of Residence: Home Review of Systems 10-point ROS is otherwise unremarkable Eyes: As per HPI ENT: As per HPI Cardiovascular: Chest Pain Physical Examination - Physical Exam General: Alert, Oriented x3, Cooperative HEENT: Atraumatic, Normocephalic, PERRLA, Mucous membr. moist/pink, Sclerae nonicteric Neck: Supple, 2+ carotid pulse no bruit, Without JVD or thyroid abnormality Respiratory: Clear to auscultation bilaterally, Normal air movement Cardiovascular: No edema, Normal S1 S2, No gallops, No rubs, No murmurs Capillary refill: <2 Seconds Gastrointestinal: Normal bowel sounds, Soft and benign, Non-distended, No ascites, No tenderness, No masses, No rebound, No guarding Musculoskeletal: No clubbing, No swelling, No erythema, No tenderness, No warmth Integumentary: No rashes, No breakdown, No significant lesion, No tenderness/swelling, No erythema, No warmth, No cyanosis Neurological: Normal gait, Normal speech, Normal strength at 5/5 x4 extr, Normal tone, Sensation intact, Cranial nerves 3-12 intact, Normal reflexes 2+, Normal affect Lymphatics: No axilla or inguinal lymphadenopathy External genitalia: No edema Rectal: Normal - Studies Laboratory Data (last 24 hrs) 09/10/24 09/10/24 09/10/24 23:55 23:32 23:15 WBC 7.10 Hgb 14.6 Hct 43.7 Plt Count 177 PT 11.3 INR 0.99 Sodium 141 Potassium 3.8 BUN 18 Creatinine 0.71 Glucose 126 H Magnesium 2.2 Total Bilirubin 0.4 AST 22 ALT 36 Alkaline Phosphatase 76 Male Exam - Male Exam Inguinal exam: No hernias Scrotum: Non-tender Testicular exam: Non-tender Anus & perineum: Patent Assessment and Plan - Plan Patient is a 63-year-old male with past medical history of type 2 diabetes mellitus, hypertension, diabetic neuropathy, kidney stones, umbilical hernia, who reports to the ER tonight complaining of worsening chest pain, does not radiate to any other part of the body, with mild associated shortness of breath. Patient states around 9 PM she started having severe midsternal chest pain which he described the pain as stabbing, states it comes very intense in minute and ease up, and comes back later, he states the chest pain is associated with mild shortness of breath. He states around 10 PM the chest pain reoccurred at this time more intense and would not ease up with a pain scale of 9/10 which then prompted him to report to the ER. States after he was given nitro sublingual x 3,the chest pain pain eased up. Patient denies of having such a chest pain before, and denies of family history of coronary disease. During admission assessment, patient states the chest pain is much better, states at this time is a 2/10 intensity. (1)Chest pain. Patient initial first troponin in ER was negative, and EKG with no ST abnormalities. -Admit to telemetry. -Serial troponin ordered. [facility] -Order for an echocardiogram in a.m. especially since patient is complaining of bilateral lower extremities edema. -Order morphine 4 mg IV as needed every 4 hours. -Order nitro glycerin sublingual as needed. (2)Chronic type 2 diabetes mellitus. Patient states his blood sugar has been running in the 200s to 300s. States he was started this week on Trulicity. -Moderate sliding scale. -Order an A1c to evaluate patient diabetic status. -To resume patient home medication when made available. (3)Chronic hypertension. -Continue home medication Metoprolol ER 25 mg p.o. daily. -Continue home medication lisinopril 40 mg p.o. daily. (4)To resume home medications after his meds are reconciled. (5) Explained the entire treatment plan to the patient, and present at bedside, solicit questions answered and voiced understanding. Discharge Plan: Home Plan to discharge in: 48 Hours - Advance Directives Does patient have a Living Will: No Does patient have a Durable POA for Healthcare: No - Code Status/Comfort Care Code Status Assessed: Yes Code Status: Full Code
[2024-09-11 03:37] VITALS: BMI 44.4
[2024-09-11 04:29] VITALS: TEMP 98.3
[2024-09-11] MEDS ORDERED: METOPROLOL TAR 25 MG TAB ONE ×2 (05:03→05:37)
--- NOTE | 2024-09-11 05:32 | RAD REPORT ---
EXAM DESCRIPTION: XR CHEST 1 VIEW CLINICAL HISTORY: 63 years Male Chest pain. COMPARISON: Radiograph of Chest 02/12/2022 and 08/15/2021 (Report only). TECHNIQUE: 1 view study of the Chest was performed. FINDINGS: Cardiac silhouette is enlarged. Central vessels are not increased. No infiltrates or effusions seen. No consolidation. No pneumothorax. IMPRESSION: Enlarged heart with no evidence for congestive heart failure. No infiltrate seen. Electronically signed by: Kinsey Das MD 09/11/2024 12:35 AM CDT Due to temporary technical issues with the PACS/[employer] reporting system, reports are being melissa d by the in-house radiologist without review as a courtesy to ensure prompt reporting the interpreting radiologist is fully responsible for the content of the report. Transcribed Date/Time: 09/11/2024 5:31 AM
[2024-09-11] MEDS: PNEUMOCOCCAL VACCINE 0.5 ML IMVAC ONE (07:00)
[2024-09-11] MEDS: INSULIN REGULAR (HUMAN) 100 UNIT/ML SQ SCH (07:30)
[2024-09-11] MEDS: METOPROLOL XL 25 MG TAB PO SCH (08:01)
[2024-09-11 08:36] LABS: Hematocrit 43.6 % (39.6-49.0); Hemoglobin 14.4 g/dL (13.6-17.9); MCH 31.3 pg (27.0-35.0); MCHC 33.1 g/dL (32.0-36.0); MCV 94.7 fL (80-100); MPV 8.6 fL (7.6-11.3); Platelets 164 thou/uL (152-406); RBC Red Blood Cell Count 4.61 M/uL (4.33-5.43); Red Cell Distribution Width 14.9 % (12.1-15.2)
[2024-09-11 08:56] LABS: Anion Gap 10.9 mEq/L (5.0-15.0); Magnesium 2.1 mg/dL (1.6-2.4); Potassium 3.9 mEq/L (3.5-5.1)
[2024-09-11] MEDS: lisinopriL 20 MG TAB PO SCH (09:00)
[2024-09-11] MEDS: ASPIRIN EC 81 MG TAB PO SCH (09:00)
[2024-09-11] MEDS: ENOXAPARIN 40 MG/0.4 ML SQ SCH (09:00)
[2024-09-11] MEDS ORDERED: ASPIRIN 81 MG CHEWABLE TABLET ONE (09:03)
[2024-09-11] MEDS ORDERED: ENOXAPARIN 40 MG/0.4 ML SQ ONE (09:03)
[2024-09-11] MEDS ORDERED: lisinopriL 20 MG TAB ONE (09:03)
--- NOTE | 2024-09-11 11:53 | P.PN ---
Date of Service: 09/11/24 Subjective: Chest pain relieved with nitro Denies having similar chest pain before vitals stable Physical Exam: GEN: Alert, oriented, NAD CV: Regular rate and rhythm, no edema Pulm: Nonlabored respirations on room air, clear bilaterally ABD: soft, nontender, nondistended Integumentary: No rashes Neuro: Normal speech, normal affect Problem List: Chest pain NIDDM2 with neuropathy Hypertension Hx Nephrolithiasis on admission, presents with non radiating chest pain associated with mild SOB. Chest pain relieved with nitro. Denies having similar chest pain before. CXR with cardiomegaly otherwise negative. Cardiology consult Trend troponins - negative x2, monitor on telemetry Echo ordered to eval EF / stenosis resume home metoprolol, lisinopril, asa 81mg Start statin PRN nitro VTE: Lovenox Code: Full Dispo: Home Pending cardiac recs Time Spent Managing Pts Care (In Minutes): 55
[2024-09-11] MEDS ORDERED: LIDOCAINE 1% 20 ML MDV ONE (13:13)
[2024-09-11] MEDS ORDERED: VERAPAMIL HCL 10 MG/4 ML VIAL IV ONE (13:13)
[2024-09-11] MEDS ORDERED: HEPA 1000U/500MLS 2,000 UNIT/1,000 ML BAG IV ONE (13:13)
[2024-09-11] MEDS ORDERED: MIDAZOLAM HCL 2 MG/2 ML INJ ONE (13:13)
[2024-09-11] MEDS ORDERED: HEPARIN 10,000 UNIT/10 ML VIAL IV ONE (13:13)
[2024-09-11] MEDS ORDERED: FENTANYL CITR 100 MCG/2 ML ONE (13:14)
[2024-09-11] MEDS ORDERED: ATROPINE SULF 1 MG/10 ML SYR IV ONE (13:14)
[2024-09-11] MEDS ORDERED: CLOPIDOGREL 75 MG TABLET ONE (13:14)
[2024-09-11] MEDS ORDERED: NA CHLORIDE 0.9% 500 ML ONE (13:14)
[2024-09-11] MEDS ORDERED: TICAGRELOR 90 MG TABLET PO ONE (13:15)
[2024-09-11] MEDS ORDERED: HEPARIN 5000 UNIT/ML 1 ML VIAL ONE (13:15)
--- NOTE | 2024-09-11 14:24 | ECHO ---
HEIGHT: 5 ft 10 in WEIGHT: 310 lb 0 oz DATE OF STUDY: 09/11/[address]: Matthew Nails MD 2-DIMENSIONAL: YES M.MODE: YES DOPPLER: YES COLOR FLOW: YES TDS: NO PORTABLE: YES DEFINITY: NO BUBBLE STUDY: NO DIAGNOSIS: CHEST PAIN CARDIAC HISTORY: CATHERIZATION: SURGERY: PROSTHETIC VALVE: PACEMAKER: MEASUREMENTS (cm) DIASTOLIC (NORMALS) SYSTOLIC (NORMALS) IVSd 1.3 (0.6-1.2) LA Diam 3.2 (1.9-4.0) LVEF 55-60% LVIDd 4.0 (3.5-5.7) LVIDs 2.8 (2.0-3.5) %FS 31% LVPWd 1.4 (0.6-1.2) Ao Diam 3.5 (2.0-3.7) 2 DIMENSIONAL ASSESSMENT: RIGHT ATRIUM: NORMAL LEFT ATRIUM: NORMAL RIGHT VENTRICLE: NORMAL LEFT VENTRICLE: NORMAL TRICUSPID VALVE: MILD TRICUSPID REGURGITATION MITRAL VALVE: NORMAL PULMONIC VALVE: MILD PULMONIC INSUFFICIENCY AORTIC VALVE: NORMAL PERICARDIAL EFFUSION: NONE AORTIC ROOT: NORMAL LEFT VENTRICULAR WALL MOTION: NORMAL. DOPPLER/COLOR FLOW: SEE BELOW. COMMENTS: 1. NORMAL LEFT VENTRICULAR EJECTION FRACTION 55-60%. 2. NORMAL WALL MOTION. 3. MILD TRICUSPID REGURGITATION. 4. MILD PULMONIC INSUFFICIENCY. 5. NORMAL DIASTOLIC FUNCTION. TECHNOLOGIST: LISA CROOK
[2024-09-11 16:22] VITALS: BP 141/64; O2SAT 96
--- NOTE | 2024-09-11 17:38 | P.DS ---
Admission Date: 09/11/24 Discharge Date: 09/11/24 Disposition: AMA-LEFT AGAINST MEDICAL ADVIC Reason for Admission: chest pain Consultations: Cardio - Dr. López Procedures: Cardiology - Dr. López Brief History of Present Illness: 63 yo M, PMH: type 2 diabetes mellitus, hypertension, diabetic neuropathy, kidney stones, umbilical hernia, Patient presents to the ER tonight complaining of worsening chest pain, does not radiate to any other part of the body, with mild associated shortness of breath. Patient states around 9 PM she started having severe midsternal chest pain which he described the pain as stabbing, states it comes very intense in minute and ease up, and comes back later, he states the chest pain is associated with mild shortness of breath. He states around 10 PM the chest pain reoccurred at this time more intense and would not ease up with a pain scale of 9/10 which then prompted him to report to the ER. States after he was given nitro sublingual x 3,the chest pain pain eased up. Patient denies of having such a chest pain before, and denies of family history of coronary disease. During admission assessment, patient states the chest pain is much better, states at this time is a 2/10 intensity. Hospital Course: Problem List: Chest pain NIDDM2 with neuropathy Hypertension Hx Nephrolithiasis Patient was admitted for chest pain. Troponins remained negative. EKG without ischemic changes. He was evaluated by Cardiology who performed left heart cath. Before I obtained report/results of cardiac cath, patient reportedly told nursing staff he was fine and nothing was wrong with him so he was leaving the hospital. Nursing staff explained AMA procedure. I spoke with nursing staff and asked if cardiac cath was performed and if any intervention was needed, since I don't see a report in chart, nor have I heard from the Digital Account Executive. If cath was all clear we can discharge him and no need for AMA. Patient stated he did not want to wait and walked out of the hospital. Physical Exam: GEN: Alert, oriented, NAD CV: Regular rate and rhythm, no edema Pulm: Nonlabored respirations on room air, clear bilaterally ABD: soft, nontender, nondistended Neuro: Normal speech, normal affect Vital Signs/Physical Exam: Temp Pulse Resp BP Pulse Ox 98.3 F 68 15 141/64 H 93 09/11/24 04:00 09/11/24 16:00 09/11/24 16:00 09/11/24 16:00 09/11/24 08:00 General: Alert, In no apparent distress HEENT: Sclerae nonicteric Respiratory: Clear to auscultation bilaterally Cardiovascular: No edema, Regular rate/rhythm Gastrointestinal: Soft and benign, Non-distended, No tenderness Laboratory Data at Discharge: WBC 7.40 thou/uL (4.3-10.9) 09/11/24 08:22 Hgb 14.4 g/dL (13.6-17.9) 09/11/24 08:22 Hct 43.6 % (39.6-49.0) 09/11/24 08:22 Plt Count 164 thou/uL (152-406) 09/11/24 08:22 PT 11.3 SECONDS (10-13.0) 09/10/24 23:32 INR 0.99 09/10/24 23:32 Sodium 141 mEq/L (136-145) 09/11/24 08:22 Potassium 3.9 mEq/L (3.5-5.1) 09/11/24 08:22 BUN 16 mg/dL (7-18) 09/11/24 08:22 Creatinine 0.72 mg/dL (0.70-1.30) 09/11/24 08:22 Glucose 184 mg/dL (74-106) H 09/11/24 08:22 Magnesium 2.1 mg/dL (1.6-2.4) 09/11/24 08:22 Total Bilirubin 0.4 mg/dL (0.2-1.0) 09/10/24 23:55 AST 22 U/L (15-37) 09/10/24 23:55 ALT 36 U/L (16-61) 09/10/24 23:55 Alkaline Phosphatase 76 U/L (45-117) 09/10/24 23:55 Home Medications: ALPRAZolam [Xanax] 1 mg PO BEDTIME 08/15/21 Cyclobenzaprine [Flexeril] 10 mg PO TID PRN 08/15/21 Empagliflozin [Jardiance] 25 mg PO DAILY 08/15/21 Gabapentin 600 mg PO BEDTIME PRN 08/15/21 Glipizide [Glipizide Xl] 10 mg PO BID 08/15/21 Metoprolol Tartrate [Lopressor] 25 mg PO BEDTIME 08/15/21 lisinopriL [Zestril] 40 mg PO DAILY 08/15/21 Anastrozole 1 mg PO EVERY 7TH DAY 09/11/24 Dulaglutide [Trulicity] 0.75 units SQ EVERY 7TH DAY 09/11/24 Escitalopram Oxalate [Lexapro] 20 mg PO BID 09/11/24 Insulin Aspart [Novolog Flexpen] 30 units SQ TIDWM 09/11/24 hydrOXYzine HCL [Atarax*] 25 mg PO Q8H PRN 09/11/24 Followup: Luis M Harris DO [Primary Care Provider] - Time spent managing pt's care (in minutes): 45
--- NOTE | 2024-09-11 19:14 | CON ---
Date of Consultation: 09/11/2024 Reason For Consultation: Chest pain. History Of Present Illness: This is a 63-year-old male with past medical history of diabetes, hypert ension, dyslipidemia, presented with chest pain. He claimed it has been sharp at the beginning in re trosternal area, radiates to the shoulder, lasts for 10 to 15 seconds and then it became more progres sive, more intense and lasting longer along with nausea, so he presented to the emergency room. At t he time of my evaluation, he had no chest pain, but he does have shortness of breath on exertion and he is morbidly obese. Past Medical History: Obesity, hypertension, dyslipidemia, diabetes. Medications: Refer to reconciliation sheet for detailed list. Allergies: NO KNOWN DRUG ALLERGIES. Family History: No premature coronary artery disease or cancer. Social History: He does not smoke or drink. Does not use any drugs. Review of Systems: All systems reviewed and they were negative except as mentioned in the HPI. Physical Examination: Vital Signs: Reviewed. Head and Neck: Pupils are equal, reactive to light. Intact eye movements. No JVD. No cervical lym phadenopathy. Neck is supple. Thyroid is not enlarged. Lungs: Clear to auscultation bilaterally. No rhonchi, wheezing, or crackles. No accessory muscle u se. Heart: Regular rate and rhythm. No extra sounds. Abdomen: Soft, nontender. Bowel sounds positive. No organomegaly. No masses or hernia. No rigidi ty or rebound. Extremities: No edema, clubbing, or cyanosis. Intact pulses. Skin: No rash. No nodules. Neurologic: Alert, awake, and oriented x3. No acute focal deficits appreciated. Investigations: Cardiac enzymes x2 are negative. NT-proBNP is 58. BUN 16, creatinine 0.72, and hem oglobin is 14.4. Assessment And Recommendations: 1. Chest pain, becoming more frequent and progressive with multiple risk factors including diabetes, hypertension, dyslipidemia, and obesity. This could be unstable angina. We will keep him n.p.o., pl an for coronary angiogram later today, and recommendations accordingly. 2. Dyslipidemia. Agree with Lipitor 40 mg at bedtime. 3. Hypertension. His blood pressure is controlled. Continue current therapy. 4. Diabetes. Check his hemoglobin A1c and continue statin and current therapy. Case was discussed w [facility] emergency room staff and primary hospitalist. SR/ALEX Voice ID: [id number] Report ID: [id number]
[2024-09-11] MEDS ORDERED: ATORVASTATIN 40 MG TAB PO SCH (21:00)
--- NOTE | 2024-09-11 21:04 | OP ---
Date of Procedure: 09/11/2024 Surgeon: ARTURO MALONE Procedure Performed: Selective coronary angiogram. Indication: Unstable angina. Access: Right radial artery 6-Barbadian, closed with TR band. Complications: None. Bleeding: Less than 50 mL. Anesthesia: Total sedation time was 45 minutes, used fentanyl. Description Of Procedure: After risks, benefits, and alternatives were explained, patient agreed to procedure and signed informed consent. The patient was brought into cardiac catheterization laborato ry, prepped and draped in sterile fashion. Then, I accessed right radial artery using pediatric micr opuncture kit and placed 6-Barbadian Slender sheath and took 5-Barbadian [place] 4.0 catheter over J-wire int o the aortic root, engaged left main, took standard views and then RCA, took standard views and remov ed the catheter and the sheath, placed TR band with good hemostasis. Findings: 1. Left main is large and normal. 2. LAD is normal. Mild luminal irregularities. Normal diagonal branches. 3. Left circumflex: Mild luminal irregularities. No significant disease. 4. RCA: Proximal 40%, distal 30%. Rest of it is normal. Conclusion: Mild nonobstructive coronary artery disease and this is noncardiac chest pain. Recommendation: Medical management and periodic follow up on outpatient basis. SR/MODL Voice ID: [id number] Report ID: [id number]
--- NOTE | 2024-09-14 12:08 | EKG ---
Test Date: 2024-09-10 Test Time: 23:12:00 Certified Energy Manager: YANNICK MEASUREMENT RESULTS: Intervals: Rate: 68 HI: 174 QRSD: 92 QT: 380 QTc: 404 [place]: P: 48 HI: 174 QRS: 51 T: 47 INTERPRETIVE STATEMENTS: Normal sinus rhythm Normal ECG Compared to ECG 08/15/2021 12:18:42 No significant changes Electronically Signed On 09-14-24 12:06:15 CDT by Julio Mckinney
== END 2024-09-11 18:33 | disposition left against medical advice (07) ==
LOC: ER 22:58 → ERHOLD 09-11 02:26 → 2ND 09-11 14:37
PROVIDERS: ADMIT Hospitalist; ATTEND Hospitalist
PROC: B2111ZZ Fluoroscopy of Multiple Coronary Arteries using Low Osmolar Contrast (ICD-10-PCS; principal; 2024-09-11)
DX: R07.89 Other chest pain (principal); I25.10 Atherosclerotic heart disease of native coronary artery without angina pectoris; Z53.29 Procedure and treatment not carried out because of patient's decision for other reasons; I10 Essential (primary) hypertension; E78.5 Hyperlipidemia, unspecified; E11.40 Type 2 diabetes mellitus with diabetic neuropathy, unspecified; N20.0 Calculus of kidney; E66.01 Morbid (severe) obesity due to excess calories; Z68.41 Body mass index [BMI] 40.0-44.9, adult; Z87.891 Personal history of nicotine dependence; Z82.49 Family history of ischemic heart disease and other diseases of the circulatory system; Z83.3 Family history of diabetes mellitus; Z80.9 Family history of malignant neoplasm, unspecified
CPT/HCPCS: 93005; 93306; 85025; 80048 ×2; 36415; 83735 ×2; 85610; 82947; 80076; 85027; 84484 ×2; 83880 ×2; 71045; 93454; 76937; 96375; 96374; 99285; C1893; Q9966; J1644; J2003; J1650; J2250; J3010; J2405; J7040; G0378 ×3; 99152; J0461